=== PATIENT | female | born 1990 | race Caucasian/White ===

== ENCOUNTER → 2024-10-27 | Outpatient (CLI) | payer OTHER, SELFPAY ==
--- NOTE | 2024-10-27 08:25 | NEURO_ITS ---
NCS and/or EMG Patient Report Ordering Doctor: Kenny Washburn DATE OF SERVICE: 10/27/24 Clinical Summary: 34 year old female patient with symptoms of numbness in both hands and wrist pain. This EMG/NCS was performed to evaluate for bilateral carpal tunnel syndrome. Nerve Conduction Studies Summary: The median-D2 SNAP distal latency was prolonged bilaterally with reduced amplitude on the right side. The median-APB CMAP distal latency was prolonged bilaterally with reduced amplitude on the right side. The right median motor conduction velocity was reduced in the forearm segment. Needle Examination Summary: Needle examination of select muscles of the bilateral upper extremities demonstrated a higher proportion of motor unit action potentials with reduced recruitment, increased amplitude, increased duration, and polyphasia in the bi lateral abductor pollicis brevis muscles and the right flexor carpi radialis muscle. Impression: This is an abnormal study. 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 Clinical correlation is advised. Multi Select Codes Neurology Neurology Interp Codes: 34220-35 Musc test done w/n test comp (interp) (2) and 20195-69 Nrv cndj test 9-10 studies (interp)
== END | disposition home or self-care (01) ==
LOC: PSN 07:01
PROVIDERS: PCP Internal Medicine; Referring Provider Student in an Organized Health Care Education/Training Program; Visit Provider Student in an Organized Health Care Education/Training Program
DX: G56.03 Carpal tunnel syndrome, bilateral upper limbs (principal); R20.2 Paresthesia of skin
CPT/HCPCS: 95886; 95911

== ENCOUNTER → 2025-02-04 | Outpatient (CLI) | payer OTHER, SELFPAY ==
--- NOTE | 2025-02-04 13:36 | RAD_ITS ---
PROCEDURE: CERV SPINE OBL/FLEX/EXT COMP 02/04/2025 REASON FOR EXAM: RADICULOPATHY TECHNIQUE: 7 views of the cervical spine. AP with repeat, bilateral oblique, lateral, flexion-extension and open-mouth odontoid, 8 total images COMPARISON: None available FINDINGS: Cervical spine is visualized on the lateral view from the skull base to the top of T1. Straightening may represent positioning or spasm. No prevertebral soft tissue swelling. No fracture or malalignment. The disc spaces appear within limits. No significant appearing osseous foraminal narrowing identified. The visualized apices appear clear. No evidence of instability. RAD/Cerv Spine Obl/Flex/Ext Comp IMPRESSION: Straightening may represent positioning or spasm. Reading Location: [id number]
== END | disposition home or self-care (01) ==
LOC: RAD 13:30
PROVIDERS: PCP Internal Medicine; Referring Provider Student in an Organized Health Care Education/Training Program; Visit Provider Student in an Organized Health Care Education/Training Program
DX: M54.12 Radiculopathy, cervical region (principal)
CPT/HCPCS: 72052

== ENCOUNTER 2025-03-25 05:56 | Day surgery (SDC) | payer OTHER, SELFPAY ==
[2025-03-18 15:40] LABS: Absolute Lymphocyte Count 2.72 X10^3/uL (0.83-4.51); Absolute Neutrophil Count 5.5 X10^3/uL (2.0-7.7); Basophil# 0.07 X10^3/uL; Basophil% 0.8 % (0-1); Eosinophil# 0.13 X10^3/uL; Eosinophils% 1.5 % (0-5); Hematocrit 41.6 % (37-47); Hemoglobin 14.2 g/dL (12.0-15.0); Lymphocyte # 2.72 X10^3/ul (0.83-4.51); Lymphocyte % 30.5 % (19-41); Mean Corp Hgb Conc 34.1 g/dL (32-36); Mean Corpuscular Hgb 28.2 pg (27.0-32.0); Mean Corpuscular Volume 82.7 fL (81-99); Mean Platelet Vol. 9.1 fl (6.2-12.0); Monocyte# 0.51 X10^3/uL; Monocyte% 5.7 % (0-10); NRBC Flagged by Analyzer 0 % (0-5); Neutrophil # 5.46 X10^3/uL (2.7-7.7); Neutrophil % 61.2 % (47-70); Platelet Count 315 K/mm3 (150-450); RBC Distribution Width CV 12.2 % (11.6-14.6); RBC Distribution Width SD 36.6 fl (35.1-43.9); Red Blood Count 5.03 M/mm3 (4.2-5.4); White Blood Count 8.9 K/mm3 (4.4-11.0)
[2025-03-18 16:31] LABS: Anion Gap 14 (5-15); BUN 10 mg/dL (4-19); BUN/Creat Ratio 10.7 RATIO (10-20); Calcium,Total 9.7 mg/dL (7.6-11.0); Carbon Dioxide 24.9 mmol/L (21.0-32.0); Chloride 103 mmol/L (98-108); Creatinine, Serum 0.92 mg/dL (0.70-1.20); EST Glomerular Filtration Rate 84 (>60); Glucose 89 mg/dL (70-99); Potassium 4.1 mmol/L (3.3-5.1); Sodium Level 141 mmol/L (133-145)
[2025-03-25] VITALS (9 sets, daily range): BP systolic 104–132; BP diastolic 66–87; PULSE 94–112; RESP 16–20; TEMP 36.4–36.8; O2SAT 90–98; BMI 31.1
--- OUTSIDE RECORDS SUMMARY | 2025-03-25 05:58 | XMS RPT_ITS | CCD ---
Author Organization [facility] Care Team Providers Care Photographic Lithographer Name Role Phone Unavailable Primary Care Provider UnavailKAIDEN Jaquez Attending Unava ilable Unavailable Primary Care Provider UnavailNAVIN Cedeno Attending Unavailable NAVIN ZAMUDIO Admitting Unavailable Unavailable Primary Care Provider UnavailDENVER Franks Attending Unavailable Wu BERG, Dr. Cox Attending Provider Dr. Kenny Washburn DO Referring Provider Delbert VALENTINE, Dr. Marquez Primary Care Provider Dr. Kenny Washburn DO Other Provider Manuel VALENTINE, Dr. Rey Attending Provider Delbert VALENTINE, Dr. Marquez Attending Provider Dr. Jimmy Mandujano MD Referring Provider Assessment, Health Risk Attending Provider Unava ilable Assessment, Health Risk Referring Provider Unava ilable Oleghe, Efewongbe Primary Care Unavailable Assessment, Health Risk Attending Unavaila ble Assessment, Health Risk Referring Unavaila ble Maikolghe, Efewongbe Attending Unavailable Oleghe, Efewongbe Referring Unavailable Oleghe, Efewongbe Primary Care Unavailable Oleghe, Efewongbe Primary Care Unavailable Krissy Jackson Attending Unavailable Kenny Washburn Referring Unavailable Kenny Washburn Consulting Unavailable Oleghe, Efewongbe Primary Care Unavailable Kenny Washburn Attending Unavailable Kenny Washburn Referring Unavailable Oleghe, Efewongbe Primary Care Unavailable Kenny Washburn Attending Unavailable Kenny Washburn Referring Unavailable Kenny Washburn Attending Unavailable Kenny Washburn Referring Unavailable Jimmy Mandujano Primary Care Unavailable Medications Current Medications Medication Drug Class(es) Dates Sig (Normalized) Sig (Original) amoxicillin 875 mg / clavulanate 125 mg oral tablet (3 sources) Penicillin-class Antibacterial Start: 12-16-2023 End: 12-26-2023 take 1 tablet by mouth every twelve hours amoxicillin-clavul anate potassium (AUGMENTIN) 875-125 mg per tablet Indications: Acute non-recurrent pansinusitis Take 1 tablet by mouth every 12 hours for 10 days. 20 tablet 0 12/16/2023 12/26/2023 Active Start: 03-05-2022 End: 03-12-2022 take 1 tablet by mouth twice daily amoxicillin-clavulanic acid (AUGMENTIN) 875-125 mg per tablet Take 1 tablet by mouth twice daily for 7 days. 14 tablet 0 03/05/2022 03/12/2022 Active Start: 12-25-2021 End: 12-30-2021 take 1 tablet by mouth twice daily amoxicillin-clavulanic acid (AUGMENTIN) 875-125 mg per tablet Indications: Acute rhinosinusitis Take 1 tablet by mouth twice daily for 5 days. 10 tablet 0 12/25/2021 12/30/2021 Active Comment on above: Take 1 tablet by rick th twice daily for 5 days. Take 1 tablet by rick th twice daily for 7 days. Take 1 tablet by rick th every 12 hours for 10 days. 24 hr buPROPion hydrochloride 300 mg extended release oral tablet (2 sources) Aminoketone Start: 5 End: 5 take 1 tablet by mouth once daily in the morning Bupropion Hcl 300 mg tablet extended release 24 hr Active 300 mg PO EVERY MORNING December 23, 2024 9:59am docusate sodium 100 mg oral capsule (1 source) Start: 3 End: 3 take 2 capsules by mouth once daily at bedtime docusate sodium (COLACE) 100 mg capsule Take 2 capsules by mouth daily at bedtime. 60 capsule 0 11/23/2022 12/23/2022 Active Comment on above: Take 2 capsules by m outh daily at bedtime. Norethindrone-E.Estrad iol-Iron (19 sources) Estrogen Start: Norethindrone-E.E stradiol-Iron (Susan 24 Fe) 1 mg-20 mcg(24) /75 mg (4) tablet,chewable Active 1 {tbl} PO daily December 23, 2024 12:00am Start: 07-06-2024 take 1 tablet by rick once daily norethindrone-e.estradiol-iron (MIBELAS 24 FE) 1 mg-20 mcg(24) /75 mg (4) Take 1 tablet by mouth once daily. 84 tablet 3 07/06/2024 Active Start: 03-27-2024 End: 07-06-2024 take 1 tablet by mouth once daily norethindrone-e.estradiol-iron (MIBELAS 24 FE) 1 mg-20 mcg(24) /75 mg (4) Take 1 tablet by mouth once daily. 84 tablet 3 03/27/2024 07/06/2024 Discontinued Start: 03-27-2024 take 1 tablet by rick once daily norethindrone-e.estradiol-iron (MIBELAS 24 FE) 1 mg-20 mcg(24) /75 mg (4) Take 1 tablet by mouth once daily. 84 tablet 3 03/27/2024 Active Start: 01-28-2024 End: 03-27-2024 take 1 tablet by mouth once daily norethindrone-e.estradiol-iron (MIBELAS 24 FE) 1 mg-20 mcg(24) /75 mg (4) Take 1 tablet by mouth once daily. 84 tablet 0 01/28/2024 03/27/2024 Discontinued Start: 01-28-2024 take 1 tablet by rick once daily norethindrone-e.estradiol-iron (MIBELAS 24 FE) 1 mg-20 mcg(24) /75 mg (4) Take 1 tablet by mouth once daily. 84 tablet 0 01/28/2024 Active Start: 12-08-2023 End: 01-28-2024 take 1 tablet by mouth once daily MIBELAS 24 FE 1 mg-20 mcg(24) /75 mg (4) take 1 tablet by mouth once daily. 84 tablet 0 12/08/2023 01/28/2024 Discontinued Start: 12-08-2023 take 1 tablet by rick th once daily MIBELAS 24 FE 1 mg-20 mcg(24) /75 mg (4) take 1 tablet by mouth once daily. 84 tablet 0 12/08/2023 Active Start: 01-17-2023 End: 12-08-2023 take 1 tablet by mouth once daily norethindrone-e.estradiol-iron (MINASTRI N 24 FE) 1 mg-20 mcg(24) /75 mg (4) Take 1 tablet by mouth once daily. 84 tablet 3 01/17/2023 12/08/2023 Discontinued Start: 01-17-2023 take 1 tablet by rick th once daily norethindrone-e.estradiol-iron (MINASTRI N 24 FE) 1 mg-20 mcg(24) /75 mg (4) Take 1 tablet by mouth once daily. 84 tablet 3 01/17/2023 Active Start: 09-01-2021 End: 04-19-2022 take 1 tablet by mouth once daily norethindrone-e.estradiol-iron (MINASTRI N 24 FE) 1 mg-20 mcg(24) /75 mg (4) Take 1 tablet by mouth once daily. 84 tablet 3 09/01/2021 04/19/2022 Discontinued Start: 09-01-2021 take 1 tablet by rick th once daily norethindrone-e.estradiol-iron (MINASTRI N 24 FE) 1 mg-20 mcg(24) /75 mg (4) Take 1 tablet by mouth once daily. 84 tablet 3 09/01/2021 Active Comment on above: Take 1 tablet by rick th once daily. sertraline 100 mg oral tablet (11 sources) Serotonin Reuptake Inhibitor Start: 12-23-2024 End: 12-23-2024 take 1 tablet by mouth once daily Sertraline 100 mg tablet Active 100 mg PO daily December 23, 2024 9:59am Start: 04-18-2023 End: 03-27-2024 take 1 tablet by mouth once daily sertraline (ZOLOFT) 50 mg tablet Take 1 tablet by mouth once daily. 90 tablet 3 03/27/2024 Active Start: 03-15-2023 End: 04-14-2023 take 1 tablet by mouth once daily sertraline (ZOLOFT) 50 mg tablet Take 1 tablet by mouth once daily. 30 tablet 0 03/15/2023 04/14/2023 Active Comment on above: Take 1 tablet by rick once daily. Completed/Discontinued Medications Medication Drug Class(es) Dates Sig (Normalized) Sig (Original) acetaminophen 500 mg oral tablet (2 sources) Start: 11-23-2022 End: 01-17-2023 take 2 tablets by mouth every six hours as needed acetaminophen (TYLENOL EXTRA STRENGTH) 500 mg tablet Take 2 tablets by mouth every 6 hours as needed for pain. 30 tablet 0 11/23/2022 01/17/2023 Discontinued Comment on above: Take 2 tablets by mo [facility] every 6 hours as needed for pain. Breast Pump (5 sources) Start: 11-08-2022 End: 01-17-2023 Breast Pump Use as directed 1 Each 0 11/08/2022 01/17/2023 Discontinued Start: 11-08-2022 End: 11-08-2023 Breast Pump Use as directed 1 Each 0 11/08/2022 11/08/2023 Active Comment on above: Use as directed famotidine 20 mg oral tablet (10 sources) Histamine-2 Receptor Antagonist Start: End: take 1 tablet by mouth twice daily famotidine (PEPCID) 20 mg tablet Take 1 tablet by mouth twice daily. 60 tablet 1 11/16/2022 01/17/2023 Discontinued Start: 09-21-2022 End: 10-05-2022 take 1 tablet by mouth twice daily famotidine (PEPCID) 20 mg tablet Take 1 tablet by mouth twice daily for 14 days. 28 tablet 0 09/21/2022 10/05/2022 Active Comment on above: Take 1 tablet by rick twice daily for 14 days. Take 20 mg by mouth twice daily. Take 1 tablet by rikc twice daily. hydrocortisone acetate 25 mg rectal suppository (3 sources) Corticosteroid Start: 023 End: 023 hydrocortisone (ANUSOL-HC) 25 mg suppository 1 Suppository by RECTAL route twice daily. 10 Suppository 1 11/20/2022 01/17/2023 Discontinued Comment on above: 1 Suppository by REC JOSIAH route twice daily. ibuprofen 600 mg oral tablet (2 sources) Nonsteroidal Anti-inflammatory Drug Start: End: take 1 tablet by mouth every six hours as needed ibuprofen (MOTRIN) 600 mg tablet Take 1 tablet by mouth every 6 hours as needed for pain. 20 tablet 0 11/23/2022 01/17/2023 Discontinued Comment on above: Take 1 tablet by rick th every 6 hours as needed for pain. mv-mn/iron fum/FA/omega3,6,9#3 (WOMEN'S MULTI ORAL) (1 source) End: mv-mn/iron fum/FA/omega3,6,9#3 (WOMEN'S MULTI ORAL) Take by mouth. 0 12/25/2021 Discontinued (Course of therapy completed) Comment on above: Take by mouth. ondansetron 4 mg disintegrating oral tablet (1 source) Serotonin-3 Receptor Antagonist Start: End: take 1 tablet by mouth every six hours as needed ondansetron orally disintegrating (ZOFRAN ODT) 4 mg disintegrating tablet Take 1 tablet by mouth every 6 hours as needed for nausea/vomiting for up to 7 days. 30 tablet 0 09/21/2022 09/28/2022 Comment on above: Take 1 tablet by rick th every 6 hours as needed for nausea/vomiting for up to 7 days. vit no.124/iron/folic ( VITAMIN ORAL) (16 sources) End: vit no.124/iron/folic ( VITAMIN ORAL) Take by mouth. 0 01/17/2023 Discontinued vit no. 124/iron/folic ( VITAMIN ORAL) Take by mouth. 0 Active Comment on above: Take by mouth. Problems Active Problems Problem Classification Problem Date Documented Da te Episodic/Chronic Abdominal pain (1 source) Unspecified abdominal pain; Translations: [Abdominal pain during in third trimester] Onset: 09-21-2022 Episodic Administrative/social admission (3 sources) First encounter by subject; Translations: [Persons encountering health services in other specified circumstances] Onset: 12-23-2024 12-23-2024 Episodic Anxiety disorders (4 sources) Generalized anxiety disorder; Translations: [Generalized anxiety disorder] Onset: 12-23-2024 03-27-2024 Chronic Fluid and electrolyte disorders (1 source) Dehydration; Translations: [Dehydration] Onset: 09-21-2022 Episodic Immunizations and screening for infectious disease (1 source) Needs influenza immunization; Translations: [Encounter for immunization] Episodic Miscellaneous mental health disorders (1 source) depression; Translations: [ depression] Episodic Mood disorders (1 source) Mood disorders; Translations: [Depression, unspecified] Onset: 12-23-2024 Nausea and vomiting (1 source) Nausea with vomiting, unspecified; Translations: [Nausea vomiting and diarrhea] Onset: 09-21-2022 Episodic Other complications of (2 sources) ; Translations: [ with inconclusive viability, not applicable or unspecified] Episodic Other complications of (1 source) Other specified related conditions, third trimester; Translations: [Abdominal pain during in third trimester] Onset: 09-21-2022 Episodic Other complications of (1 source) Other specified related conditions, unspecified trimester; Translations: [Rh negative state in antepartum period] Onset: 11-23-2022 Episodic Other complications of (1 source) Anxiety; Translations: [Other mental disorders complicating the puerperium] Episodic Other gastrointestinal disorders (1 source) Diarrhea, unspecified; Translations: [Nausea vomiting and diarrhea] Onset: 09-21-2022 Episodic Other nervous system disorders (2 sources) Carpal tunnel syndrome, bilateral upper limbs; Translations: [Carpal tunnel syndrome, bilateral upper limbs] Onset: 12-21-2024 Chronic Other nervous system disorders (1 source) Paresthesia of skin; Translations: [Paresthesia of skin] Onset: 12-21-2024 Episodic Other upper respiratory infections (4 sources) Acute rhinosinusitis; Translations: [Acute sinusitis, unspecified] Episodic Residual codes; unclassified (1 source) Gestation period, 9 weeks; Translations: [9 weeks gestation of ] Episodic Residual codes; unclassified (1 source) Gestation period, 14 weeks; Translations: [14 weeks gestation of ] Episodic Residual codes; unclassified (1 source) Gestation period, 18 weeks; Translations: [18 weeks gestation of ] Episodic Residual codes; unclassified (1 source) Gestation period, 22 weeks; Translations: [22 weeks gestation of ] Episodic Residual codes; unclassified (1 source) Gestation period, 26 weeks; Translations: [26 weeks gestation of ] Episodic Residual codes; unclassified (1 source) Gestation period, 32 weeks; Translations: [32 weeks gestation of ] Episodic Residual codes; unclassified (1 source) Gestation period, 36 weeks; Translations: [36 weeks gestation of ] Episodic Residual codes; unclassified (1 source) Gestation period, 37 weeks; Translations: [37 weeks gestation of ] Episodic Residual codes; unclassified (1 source) Gestation period, 38 weeks; Translations: [38 weeks gestation of ] Episodic Residual codes; unclassified (1 source) Gestation period, 40 weeks; Translations: [40 weeks gestation of ] Episodic Residual codes; unclassified (1 source) Unspecified blood type, Rh negative; Translations: [Rh negative state in antepartum period] Onset: 11-23-2022 Episodic Spondylosis; intervertebral disc disorders; other back problems (1 source) Radiculopathy, cervical region; Translations: [Radiculopathy, cervical region] Onset: 02-09-2025 Episodic Unclassified (1 source) Z00.00 - Encounter for general adult medical examination without abnormal findings Past or Other Problems Problem Classification Problem Date Documented Date Episodic/Chronic OB-related trauma to perineum and vulva (5 sources) First degree perineal laceration; Translations: [First degree perineal laceration during delivery] Onset: 06-27-2020 Resolved: 08-16-2020 08-16-2020 Episodic Other complications of ; puerperium affecting management of mother (5 sources) Delivery finding; Translations: [Complication of labor and delivery, unspecified] Onset: 02-17-2017 Resolved: 04-11-2017 04-11-2017 Episodic Other complications of (20 sources) RhD negative; Translations: [Other specified related conditions, unspecified trimester] Onset: 10-09-2016 Resolved: 01-17-2023 Episodic Other complications of (10 sources) Previous operation to cervix affecting ; Translations: [Maternal care for other abnormalities of cervix, unspecified trimester] Onset: 08-14-2016 Resolved: 08-16-2020 04-11-2017 Episodic Other and delivery including normal (20 sources) care status; Translations: [Encounter for supervision of other normal , first trimester] Onset: 07-17-2016 Resolved: 01-17-2023 Episodic Other screening for suspected conditions (not mental disorders or infectious disease) (7 sources) Patient encounter status; Translations: [Encounter for screening for Streptococcus B] Onset: 05-12-2020 Resolved: 08-16-2020 Episodic Residual codes; unclassified (5 sources) At risk for difficulty; Translations: [Other specified personal risk factors, not elsewhere classified] Onset: 06-27-2020 Resolved: 08-16-2020 08-16-2020 Episodic NEGATED: Highlighted row has been ruled out!Unclassified (4 sources) No known active problems 03-05-2022 Results Test Name Value Interpretation Reference Range Facility Basic Metabolic Profile (BMP )on 03-18-2025 BUN/CRE 10.7 RATIO Normal - [facility] Comment on above: Performed By: #### L 100.0100, L500.2500 #### [facility] [address] [place], [address] Calcium [Mass/Vol] 9.7 mg/dL Normal 7.6-11.0 [facility] Comment on above: Performed By: #### L 100.0100, L500.2500 #### [facility] [address] [place], [address] Chloride [Moles/Vol] 103 mmol/L Normal 98-108 [facility] Comment on above: Performed By: #### L 100.0100, L500.2500 #### [facility] [address] [place], [address] CO2 [Moles/Vol] 24.9 mmol/L Normal 21.0-32.0 [facility] Comment on above: Performed By: #### L 100.0100, L500.2500 #### [facility] [address] [place], [address] Creatinine [Mass/Vol] 0.92 mg/dL Normal 0.70-1.20 [facility] Comment on above: Performed By: #### L 100.0100, L500.2500 #### [facility] [address] [place], [address] GAP 14 Normal 5-15 [facility] Comment on above: Performed By: #### L 100.0100, L500.2500 #### [facility] [address] [place], [address] GFR/1.73 sq M.predicted among non-blacks MDRD (S/P/Bld) [Vol rate/Area] 84 mL/min/{1.73_m2} Normal >60 [facility] Comment on above: Result Comment: mL/m in/1.73m2 CKD-EPI Creatinine Equation (2020) Performed By: #### L 100.0100, L500.2500 #### [facility] [address] [place], [address] Glucose [Mass/Vol] 89 mg/dL Normal 70-99 [facility] Comment on above: Performed By: #### L 100.0100, L500.2500 #### [facility] [address] [place], [address] Potassium [Moles/Vol] 4.1 mmol/L Normal 3.3-5.1 [facility] Comment on above: Performed By: #### L 100.0100, L500.2500 #### [facility] [address] [place], [address] Sodium [Moles/Vol] 141 mmol/L Normal 133-145 [facility] Comment on above: Performed By: #### L 100.0100, L500.2500 #### [facility] [address] [place], [address] Urea nitrogen [Mass/Vol] 10 mg/dL Normal 4-19 [facility] Comment on above: Performed By: #### L 100.0100, L500.2500 #### [facility] [address] [place], [address] CBC W/Diff, Automatedon 06- Absolute Lymph 2.72 X10 3/uL Normal 0.83-4.51 [facility] Comment on above: Performed By: #### L 100.0100, L500.2500 #### [facility] [address] [place], [address] Absolute Neut 5.5 X10 3/uL Normal 2.0-7.7 [facility] Comment on above: Performed By: #### L 100.0100, L500.2500 #### [facility] [address] [place], [address] Basophils/100 WBC (Bld) 0.8 % Normal 0-1 [facility] Comment on above: Performed By: #### L 100.0100, L500.2500 #### [facility] [address] [place], [address] Eosinophils/100 WBC (Bld) 1.5 % Normal 0-5 [facility] Comment on above: Performed By: #### L 100.0100, L500.2500 #### [facility] [address] [place], [address] Erythrocyte distribution width (RBC) [Ratio] 12.2 % Normal 11.6-14.6 [facility] Comment on above: Performed By: #### L 100.0100, L500.2500 #### [facility] [address] [place], [address] Hematocrit (Bld) [Volume fraction] 41.6 % Normal 37-47 [facility] Comment on above: Performed By: #### L 100.0100, L500.2500 #### [facility] [address] [place], [address] Hemoglobin (Bld) [Mass/Vol] 14.2 g/dL Normal 12.0-15.0 [facility] Comment on above: Performed By: #### L 100.0100, L500.2500 #### [facility] [address] [place], [address] IG% 0.300 Normal 0.0-0.9 [facility] Comment on above: Result Comment: IG% - Immature Granulocytes (promyelocytes, myelocytes and metamyelocytes) > 1% indicates that a LEFT SHIFT is Present. Performed By: #### L 100.0100, L500.2500 #### [facility] [address] [place], [address] Lymphocytes/100 WBC (Bld) 30.5 % Normal 19-41 [facility] Comment on above: Performed By: #### L 100.0100, L500.2500 #### [facility] [address] [place], [address] MCH (RBC) [Entitic mass] 28.2 pg Normal 27.0-32.0 [facility] Comment on above: Performed By: #### L 100.0100, L500.2500 #### [facility] [address] [place], [address] MCHC (RBC) [Mass/Vol] 34.1 g/dL Normal 32-36 [facility] Comment on above: Performed By: #### L 100.0100, L500.2500 #### [facility] [address] [place], [address] MCV (RBC) [Entitic vol] 82.7 fL Normal 81-99 [facility] Comment on above: Performed By: #### L 100.0100, L500.2500 #### [facility] [address] [place], [address] Monocytes/100 WBC (Bld) 5.7 % Normal 0-10 [facility] Comment on above: Performed By: #### L 100.0100, L500.2500 #### [facility] [address] [place], [address] Neutrophils/100 WBC (Bld) 61.2 % Normal 47-70 [facility] Comment on above: Performed By: #### L 100.0100, L500.2500 #### [facility] [address] [place], [address] Nucleated RBC (Bld) [#/Vol] 0 10*3/uL Normal 0-5 [facility] Comment on above: Performed By: #### L 100.0100, L500.2500 #### [facility] [address] [place], [address] Platelet mean volume (Bld) [Entitic vol] 9.1 fL Normal 6.2-12.0 [facility] Comment on above: Performed By: #### L 100.0100, L500.2500 #### [facility] [address] [place], [address] Platelets (Bld) [#/Vol] 315 10*3/uL Normal 150-450 [facility] Comment on above: Performed By: #### L 100.0100, L500.2500 #### [facility] [address] [place], [address] RBC (Bld) [#/Vol] 5.03 10*6/uL Normal 4.2-5.4 [facility] Comment on above: Performed By: #### L 100.0100, L500.2500 #### [facility] [address] [place], [address] RDW SD 36.6 fl Normal 35.1-43.9 [facility] Comment on above: Performed By: #### L 100.0100, L500.2500 #### [facility] [address] [place], [address] WBC (Bld) [#/Vol] 8.9 10*3/uL Normal 4.4-11.0 [facility] Comment on above: Performed By: #### L 100.0100, L500.2500 #### [facility] [address] [place], [place], [address] Cerv Spine Obl/Flex/Ext Comp on 02-04-2025 Cerv Spine Obl/Flex/Ext Comp [facility] [address] [place] [address] Cerv Spine Obl/Flex/Ext Comp MR#: [id number] Acct: [id number] Name: ANNE LAST Rep #: [id number] : 1990 F 34 From: Nuno Jara MD PCP: Dr. Jimmy Mandujano MD Status: REG CLI Study: Cerv Spine Obl/Flex/Ext Comp Date of Exam: 05/24 Exam# [id number] Ordering Dr: Kenyn Washburn DO PROCEDURE: CERV SPINE OBL/FLEX/EXT COMP 02/04/2025 REASON FOR EXAM: RADICULOPATHY TECHNIQUE: 7 views of the cervical spine. AP with repeat, bilateral oblique, lateral, flexion-extension and open-mouth odontoid, 8 total images COMPARISON: None available FINDINGS: Cervical spine is visualized on the lateral view from the skull base to the top of T1. Straightening may represent positioning or spasm. No prevertebral soft tissue swelling. No fracture or malalignment. The disc spaces appear within limits. No significant appearing osseous foraminal narrowing identified. The visualized apices appear clear. No evidence of instability. RAD/Cerv Spine Obl/Flex/Ext Comp IMPRESSION: Straightening may represent positioning or spasm. Reading Location: [facility] CC: Dr. Jimmy Mandujano MD; Dr. Kenny Washburn DO [employer] Assembler: Signed Normal [facility] Absolute lymphocyte countOrd ered By: HEALTH ASSESSMENT on 12-23-2024 Lymphocytes Auto (Unsp spec) [#/Vol] 2.00 10*3/uL 0.83-4.51 [facility] [facility] Absolute neutrophil countOrd ered By: HEALTH ASSESSMENT on 12-23-2024 Neutrophils (Bld) [#/Vol] 6.7 10*3/uL 2.0-7.7 [facility] Absolute nucleated red blood cell countOrdered By: HEALTH ASSESSMENT on 12-23-2024 Nucleated RBC (Bld) [#/Vol] 0.00 10*3/uL 0-5 [facility] Anion gap in Serum or Plasma Ordered By: HEALTH ASSESSMENT on 12-23-2024 Anion gap [Moles/Vol] 10 mmol/L 5-15 [facility] Automated blood erythrocyte countOrdered By: HEALTH ASSESSMENT on 12-23-2024 RBC (Bld) [#/Vol] 5.04 10*6/uL Normal 4.2-5.4 [facility] Comment on above: Performed By: #### L 500.2900, L100.0200 #### [facility] Laboratory [address] [place], [place], [id number] Automated blood hematocrit ( percentage)Ordered By: HEALTH ASSESSMENT on 12-23-2024 Hematocrit (Bld) [Volume fraction] 42.1 % Normal 37-47 [facility] Comment on above: Performed By: #### L 500.2900, L100.0200 #### [facility] [address] [facility] [place], [place], [address] BUN/creatinine ratioOrdered By: HEALTH ASSESSMENT on 12-23-2024 Urea nitrogen/Creatinine [Mass ratio] 12.7 mg/mg 10-20 [facility] Bilirubin directOrdered By: HEALTH ASSESSMENT on 12-23-2024 Bilirubin.direct [Mass/Vol] 0.12 mg/dL 0.00-0.30 [facility] Bilirubin, totalOrdered By: HEALTH ASSESSMENT on 12-23-2024 Bilirubin [Mass/Vol] 0.29 mg/dL 0.00-1.30 [facility] Blood band neutrophil count as percentage of total leukocytesOrdered By: HEALTH ASSESSMENT on 12-23-2024 Band form neutrophils/100 WBC (Bld) 71.6 % High 47-70 [facility] CBC, Employeeon 03-26-2025 Absolute Lymph 2.00 X10 3/uL Normal 0.83-4.51 [facility] Comment on above: Performed By: #### L 500.2900, L100.0200 #### [facility] Laboratory [address] [place], [address] Absolute Neut 6.7 X10 3/uL Normal 2.0-7.7 [facility] Comment on above: Performed By: #### L 500.2900, L100.0200 #### [facility] Laboratory [address] [place], [address] Basophils/100 WBC (Bld) 0.5 % Normal 0-1 [facility] Comment on above: Performed By: #### L 500.2900, L100.0200 #### [facility] [address] [place], [address] Eosinophils/100 WBC (Bld) 1.2 % Normal 0-5 [facility] Comment on above: Performed By: #### L 500.2900, L100.0200 #### [facility] [address] [place], [address] Lymphocytes/100 WBC (Bld) 21.3 % Normal 19-41 [facility] Comment on above: Performed By: #### L 500.2900, L100.0200 #### [facility] [address] [place], [address] Monocytes/100 WBC (Bld) 5.2 % Normal 0-10 [facility] Comment on above: Performed By: #### L 500.2900, L100.0200 #### [facility] [address] [place], [address] Neutrophils/100 WBC (Bld) 71.6 % High 47-70 [facility] Comment on above: Performed By: #### L 500.2900, L100.0200 #### [facility] [address] [place], [address] NRBC # 0.00 10 3/uL Normal 0-5 [facility] Comment on above: Performed By: #### L 500.2900, L100.0200 #### [facility] [address] [place], [address] Nucleated RBC (Bld) [#/Vol] 0 10*3/uL Normal 0-5 [facility] Comment on above: Performed By: #### L 500.2900, L100.0200 #### [facility] [address] [place], [address] RDW SD 36.3 fl Normal 35.1-43.9 [facility] Comment on above: Performed By: #### L 500.2900, L100.0200 #### [facility] [address] [place], [address] Calculated very low density lipoprotein (VLDL) cholesterol measurementOrdered By: HEALTH ASSESSMENT on 12-23-2024 Calculated very low density lipoprotein (VLDL) cholesterol measurement 29 mg/dL 5-40 [facility] Carbon dioxide, total [Moles /volume] in Central venous bloodOrdered By: HEALTH ASSESSMENT on 12-23-2024 CO2 [Moles/Vol] 25.9 mmol/L 21.0-32.0 [facility] Chloride assayOrdered By: HE ALTH ASSESSMENT on 12-23-2024 Chloride [Moles/Vol] 104 mmol/L 98-108 [facility] Erythrocyte distribution wid th ratioOrdered By: HEALTH ASSESSMENT on 12-23-2024 Erythrocyte distribution width (RBC) [Ratio] 12.0 % Normal 11.6-14.6 [facility] Comment on above: Performed By: #### L 500.2900, L100.0200 #### [facility] [address] [place], [address] Erythrocyte distribution wid th standard deviationOrdered By: HEALTH ASSESSMENT on 12-23-2024 Erythrocyte distribution width (RBC) [Ratio] 36.3 fl 35.1-43.9 [facility] Glomerular filtration rate ( GFR) estimation/1.73 sq m using serum, plasma, or whole bOrdered By: HEALTH ASSESSMENT on 12-23-2024 GFR/1.73 sq M.predicted among non-blacks MDRD (S/P/Bld) [Vol rate/Area] 101 mL/min/{1.73_m2} >60 [facility] Comment on above: mL/min/1.73m2 CKD-EP I Creatinine Equation (2020) Hemoglobin measurementOrdere d By: HEALTH ASSESSMENT on 12-23-2024 Hemoglobin (Bld) [Mass/Vol] 14.3 g/dL Normal 12.0-15.0 [facility] Comment on above: Performed By: #### L 500.2900, L100.0200 #### [facility] Laboratory [address] [place], [address] Internal Medicine Office Vis iton 12-23-2024 Internal Medicine Office Visit [facility] [address] [place] [address] [place] [address] OFFICE VISIT Date of Service: 12/23/24 MR#: [id number] Acct: [id number] Name: ANNE LAST Rep #: [id number] : 1990 Provider: Dr. Jimmy travis MD Age/Sex: 34/F Location[place] [facility] Status: Signed Intake Vital Signs 12/23/24 09:44 Height 5 ft 3.5 in Weight: 173 lb BMI 30.2 BP 112/74 Blood Pressure Location Lt brachial Position Sitting Respiration 16 Pulse 70 Pulse Source Monitor Temp 97.5 F L Temp Source Temporal Pulse Oximetry (%) 97 Oxygen Delivery Method room air Intake Visit Reasons: Booked from other vendor Chief Complaint: Establish care Heat Regulator Required: No Accompanied by: Self Is patient in pain?: No Allergies No Known Allergies Allergy (Verified 12/23/24 09:28) Medications ???Medication ???Instructions ???Recorded ???Confirmed ???Type bupropion HCl 300 mg 24 hr tablet, 300 mg PO QAM #90 tabs 12/23/24 12/23/24 Rx extended release norethindrone 1 mg-e. estradiol 20 1 tab PO QDAY 12/23/24 12/23/24 History mcg (24)-iron 75 mg (4) chew tablet (Susan 24 Fe) sertraline 100 mg tablet 100 mg PO QDAY #90 tabs 12/23/24 0 12/23/24 Rx [facility] Medical History (Updated 12/23/24 @ 10:[address] 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 No acute concerns at this time. 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 No significant medical history save for anxiety and depression for which she is currently on Wellbutrin and Zoloft. She states that she is doing well on both medications and has had no concerning side effects. Last Pap smear was in 2023. No family history of colon, breast or reproductive cancer. No tobacco or alcohol abuse. Does not routinely exercise. ROS Const Constitutional: No body ache, excessive sweating, fatigue, fever(s), frequent falls, headache(s), snoring, weakness, weight change, sleep problems or change in appetite Eyes Eyes: No blurry vision, change in vision, bulging eyes, floaters, visual disturbances, eye pain or Light sensitivity ENT ENT: No abnormal hearing, ear or mastoid pain, tinnitus, balance problems, nosebleed/epistaxis, nasal congestion, headache(s), neck pain or sore throat Resp Respiratory: No cough, excessive phlegm production, pain on inspiration, shortness of breath, snoring or wheezing Cardio Cardiology: No chest pain at rest, chest pain with exertion, excessive sweating, shortness of breath, dyspnea on exertion, lightheadedness, orthopnea or palpitations Gastro GI: No abdominal pain, change in bowel habits, constipation, cramping, diarrhea, nausea/dyspepsia or vomiting Genitourinary-Female: No burning urination, painful urination, urinary incontinence, urinary frequency, blood in urine, suprapubic fullness, side pain, abnormal periods or pelvic pain Musc Musculoskeletal: No abnormal gait, joint pain, back pain, limited range of motion, loss of height, muscle cramps, neck pain, numbness, stiffness, tingling or Arthritis Skin Skin: No dry skin, redness, excessive hair growth, yellowing of the eye, lesions, itchy eyes, rash or wounds Neuro Neurology: No abnormal gait, abnormal hearing, abnormal speech, behavioral changes, unsteady gait/balance, dizziness, weakness, frequent falls, headache(s), memory loss, numbness, tingling or visual disturbances Psych Psychiatric: No anxiety, No behavioral changes, No change in appetite, No depression, No memory loss and No Thoughts of harming yourself/Others Endo Endocrine: No cold intolerance, excessive sweating, fatigue, flushing, heat intolerance, increased thirst/drinking, inc (more content not included)... Normal [facility] Laboratory - Chemistry and C hemistry - challengeOrdered By: HEALTH ASSESSMENT on 12-23-2024 AST [Catalytic activity/Vol] 22 U/L <32 [facility] Lactate dehydrogenase (LDH) measurementOrdered By: HEALTH ASSESSMENT on 12-23-2024 LDH [Catalytic activity/Vol] 169 U/L 84-246 [facility] Low density lipoprotein (LDL ) cholesterol measurementOrdered By: HEALTH ASSESSMENT on 12-23-2024 Cholesterol in LDL [Mass/Vol] 113 mg/dL Normal 0-130 [facility] Comment on above: Performed By: #### L 500.2900, L100.0200 #### [facility] Laboratory [address] [place], [address] MCV (mean corpuscular volume ) determinationOrdered By: HEALTH ASSESSMENT on 12-23-2024 MCV (RBC) [Entitic vol] 83.5 fL Normal 81-99 [facility] Comment on above: Performed By: #### L 500.2900, L100.0200 #### [facility] [address] [place], [address] Mean corpuscular hemoglobin (MCH) determinationOrdered By: HEALTH ASSESSMENT on 12-23-2024 MCH (RBC) [Entitic mass] 28.4 pg Normal 27.0-32.0 [facility] Comment on above: Performed By: #### L 500.2900, L100.0200 #### [facility] [address] [place], [address] Mean corpuscular hemoglobin concentration (MCHC) determinationOrdered By: HEALTH ASSESSMENT on 12-23-2024 MCHC (RBC) [Mass/Vol] 34.0 g/dL Normal 32-36 [facility] Comment on above: Performed By: #### L 500.2900, L100.0200 #### [facility] [address] [place], [address] Mean platelet volume determi nationOrdered By: HEALTH ASSESSMENT on 12-23-2024 Platelet mean volume (Bld) [Entitic vol] 8.9 fL Normal 6.2-12.0 [facility] Comment on above: Performed By: #### L 500.2900, L100.0200 #### [facility] [address] [place], [address] Nucleated red blood cell per centageOrdered By: HEALTH ASSESSMENT on 12-23-2024 Nucleated RBC/100 WBC (Bld) [Ratio] 0 % 0-5 [facility] Platelet countOrdered By: HE ALTH ASSESSMENT on 12-23-2024 Platelets (Bld) [#/Vol] 305 10*3/uL Normal 150-450 [facility] Comment on above: Performed By: #### L 500.1690, L100.0200 #### [facility] [address] [place], [address] Potassium measurement (mass/ volume)Ordered By: HEALTH ASSESSMENT on 12-23-2024 Potassium (Unsp spec) [Mass/Vol] 4.5 mmol/L 3.3-5.1 [facility] Screening total cholesterol/ high density lipoprotein (HDL) cholesterol ratioOrdered By: HEALTH ASSESSMENT on 12-23-2024 Cholesterol.total/Choles terol in HDL [Mass ratio] 4.00 {ratio} [facility] Serum creatinine measurement (mass/volume)Ordered By: HEALTH ASSESSMENT on 12-23-2024 Creatinine [Mass/Vol] 0.78 mg/dL 0.70-1.20 [facility] Serum globulin measurementOr dered By: HEALTH ASSESSMENT on 12-23-2024 Globulin (S) [Mass/Vol] 3.1 g/dL 2.2-4.2 [facility] Serum glucose measurement (m ass/volume)Ordered By: HEALTH ASSESSMENT on 12-23-2024 Glucose [Mass/Vol] 79 mg/dL 70-99 [facility] Serum or plasma alanine steen otransferase (ALT) measurementOrdered By: HEALTH ASSESSMENT on 12-23-2024 ALT [Catalytic activity/Vol] 12 U/L <35 [facility] Serum or plasma albumin filomena urement (mass/volume)Ordered By: HEALTH ASSESSMENT on 12-23-2024 Albumin [Mass/Vol] 4.5 g/dL 3.5-5.0 [facility] Serum or plasma albumin/glob ulin mass ratioOrdered By: HEALTH ASSESSMENT on 12-23-2024 Albumin/Globulin [Mass ratio] 1.4 {ratio} 0.9-2.4 [facility] Serum or plasma alkaline axel sphatase measurementOrdered By: HEALTH ASSESSMENT on 12-23-2024 ALP [Catalytic activity/Vol] 56 U/L 35-104 [facility] Serum or plasma calcium filomena urement (mass/volume)Ordered By: HEALTH ASSESSMENT on 12-23-2024 Calcium [Mass/Vol] 9.9 mg/dL 7.6-11.0 [facility] Serum or plasma cholesterol in HDL measurement (mass/volume)Ordered By: HEALTH ASSESSMENT on 12-23-2024 Cholesterol in HDL [Mass/Vol] 47 mg/dL >40 [facility] Comment on above: National Cholesterol Education Program (NCEP) guidelines:<40 mg/dL: Low HDL-cholesterol (major risk factor for CHD)>= 60 mg/dL: High HDL-cholesterol (negative risk factor for CHD)HDL-cholesterol is affected by a number of factors, e.g. smoking, exercise, hormones, sex and age. Serum or plasma cholesterol measurement (mass/volume)Ordered By: HEALTH ASSESSMENT on 12-23-2024 Cholesterol [Mass/Vol] 189 mg/dL <201 [facility] Comment on above: Cholesterol level, D esirable <200 mg/dLBorderline high cholesterol 200-239 mg/dLHigh cholesterol >=240 mg/dLRecommendations of the NCEP Adult Treatment Panel for the following risk-cutoff thresholds for the [place] population. Serum or plasma urea nitroge n measurement (mass/volume)Ordered By: HEALTH ASSESSMENT on 12-23-2024 Urea nitrogen [Mass/Vol] 10 mg/dL 4-19 [facility] Serum or plasma uric acid me asurement (mass/volume)Ordered By: [facility] ASSESSMENT on 12-23-2024 Urate [Mass/Vol] 5.0 mg/dL 2.6-6.0 [facility] Comment on above: The drugs N-Acetylcy steine and Metamizole may falsely depress this assay. Sodium levelOrdered By: [facility] ASSESSMENT on 12-23-2024 Sodium [Moles/Vol] 140 mmol/L 133-145 [facility] Total proteinOrdered By: [facility] ASSESSMENT on 12-23-2024 Protein [Mass/Vol] 7.6 g/dL 5.9-8.4 [facility] Triglycerides measurementOrd ered By: HEALTH ASSESSMENT on 12-23-2024 Triglyceride [Mass/Vol] 146 mg/dL <199 [facility] Comment on above: The drugs N-Acetylcy steine and Metamizole may falsely depress this assay. Normal range: <150 mg/dLBorderline High: 150-199 mg/dLHigh: 200-499 mg/dLVery High: >500 mg/dL White blood cell (WBC) count Ordered By: HEALTH ASSESSMENT on 12-23-2024 WBC (Bld) [#/Vol] 9.4 10*3/uL Normal 4.4-11.0 [facility] Comment on above: Performed By: #### L 500.2900, L100.0200 #### [facility] Laboratory [address] [place], [address] NCS and/or EMG Patienton NCS and/or EMG Patient [facility] Pulmonary Services/Neurology [address] [place] [address] MR#: [id number] Acct: [id number] Name: ANNE LAST Rep #: [id number] : 1990 34 From: Krissy Jackson MD Referring Dr: Kenny Washburn DO Status: REG C LI Location: [facility] Date: 10/27/24 Sex: F C NCS and/or EMG Patient Report Ordering Doctor: Kenny Washburn DATE OF SERVICE: 10/27/24 Clinical Summary: 34 year old female patient with symptoms of numbness in both hands and wrist pain. This EMG/NCS was performed to evaluate for bilateral carpal tunnel syndrome. Nerve Conduction Studies Summary: The median-D2 SNAP distal latency was prolonged bilaterally with reduced amplitude on the right side. The median-APB CMAP distal latency was prolonged bilaterally with reduced amplitude on the right side. The right median motor conduction velocity was reduced in the forearm segment. Needle Examination Summary: Needle examination of select muscles of the bilateral upper extremities demonstrated a higher proportion of motor unit action potentials with reduced recruitment, increased amplitude, increased duration, and polyphasia in the bilateral abductor pollicis brevis muscles and the right flexor carpi radialis muscle. Impression: This is an abnormal study. 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 Clinical correlation is advised. Multi Select Codes Neurology Neurology Interp Codes: 28833-30 Musc test done w/n test comp (interp) (2) and 40074-17 [facility] cnd test 9-10 studies (interp) 10/27/24 1348 Date Krissy Jackson MD CC: Dr. Krissy Jackson MD; Dr. Jimmy Mandujano MD; Dr. Kenny Washburn DO Date Dictated: 10/27/24824 Date Transcribed: 10/27/24824 Corncob Pipes Assembler: [facility] Office Visit (AVONGY ) ANNE LAST ([id number]) 1990 F Date Time Provider Department 03/27/24 10:00 AM DENVER CATALAN During your visit today, we recorded the following information about you: Blood pressure Weight Height Last Period 116/78 79 kg 1.6 m 02/08/22 Layne Dillard MA 03/27/2024 10:21 AM Signed Risk Control Manager offered: Patient declines. Denver Catalan MD 03/27/2024 10:44 AM Signed Anne Last is a 33 year old G4P 3 female who presents for an annual exam. Today, she has no complaints. She doesn't get a period on the pill which she likes. Denies pelvic pain or vulvovaginal issues. Has gained weight and doesn't feel good. Hasn't been exercising. Busy with kids and work. Has occ CAROLE but not to often. No other pelvic floor concerns. Taking zoloft which has really helped with anxiety. wants to get a vasectomy OB History T3 L3 SAB1 IAB0 Ectopic0 Multiple0 Live Births3 Comment: Pt. 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 84 tablet 3 sertraline (ZOLOFT) 50 mg tablet Take 1 tablet by mouth once daily. 90 tablet 3 No current facility-administered medications for this visit. ALLERGIES: ALLERGIES No Known Allergies ROS: GENERAL: Negative for: Fatigue NECK: Negative for: Pain CARDIOLOGY: negative chest pain and palpitations RESPIRATORY: Negative for: Shortness of breath GASTROINTESTINAL: negative nausea, vomiting, diarrhea, constipation MUSCULOSKELETAL: Negative for: Muscle or joint pain NEUROLOGIC: negative for headaches PSYCHIATRIC: anxiety SKIN: Negative for: Rash, Itching ENDOCRINE: negative GENITOURINARY: Negative for: abnormal bleeding, pelvic pain, vaginal itching, vaginal discharge; negative urinary complaints BREAST: negative PE: Body mass index is 30.85 kg/m?. GENERAL:Well developed, Well nourished, No acute distress NECK: supple, no lymphadenopathy, no thyromegaly ABD: flat, nontender, no guarding, no rebound tenderness, no HSM EXT:no C/C/E SKIN:Skin color, texture, turgor normal. No rashes or lesions BREASTS: soft, non-tender, symmetric, no dominant mass, normal nipple-areolar complex, no lymphadenopathy, and no nipple discharge PELVIC:Normal BUS, NEFG, normal vagina, and normal cervix, Normal uterus, normal ovaries bilaterally pap/HPV done Assessment/Plan: (Z01.419) Encounter for gynecological examination (general) (routine) without abnormal findings (primary encounter diagnosis) (Z12.4) Cervical cancer screening (F41.1) Generalized anxiety disorder Normal exam. Pap/hpv done Refills of ocps and zoloft until vasectomy cleared. Reviewed diet, exercise, SBE, skin cancer prevention. Encouraged to focus on time for herself for exercise/cardio/stren gth. Reviewed tobacco, alcohol, drug use. The patient was counseled about oral contraceptive pills, including their mechanism of action, efficacy, potential side effects, risks and benefits. No contraindications exist including family history of clotting disorder or early stroke or heart attack. Any new medications given to pt. have been explained as to directions, reasons for prescribing and side effects Followup in 1 year /prn Denver Catalan MD Referring Provider: SELF [200] Allergies As of Date: 03/27/2024 (No Known Allergies) Date Reviewed: 03/27/2024 Reviewed by: Layne Dillard MA - Fully Assessed Reason for Visit: Yearly Exam [187] Cmt: 07/2020 pap AND hpv NEG Primary Visit Diagnosis:Encounter for gynecological examination (general) (routine) without abnormal findings [Z01.419] Other Visit Diagnoses:Cervical cancer screening [Z12.4] Generalized anxiety disorder [F41.1] Order(s):PAP TEST [PGL4910] Order #: [id number]. #:[id number] norethindrone-e.estra diol-iron (MIBELAS 24 FE) 1 mg-20 mcg(24) /75 mg (4)Take 1 tablet by mouth once daily.Disp: 84 tabletRfl: 3 sertraline (ZOLOFT) 50 mg tabletTake 1 tablet by mouth once daily.Disp: 90 tabletRfl: 3 Prescriptions as of 03/27/2024 - norethindrone-e.estra diol-iron (MIBELAS 24 FE) 1 mg-20 mcg(24) /75 mg (4) Take 1 tablet by mouth once daily. - sertraline (ZOLOFT) 50 mg tablet Take 1 tablet by mout (more content not included)... Normal [facility] CNOVon 12-16-2023 CNOV Office Visit (EXPSTR ) ANNE LAST ([id number]) 1990 F Date Time Provider Department 12/16/23 11:20 AM CHRISTEL CHRIS EXPSTR During your visit today, we recorded the following information about you: Temperature Pulse Respiration Blood pressure 98.4 degrees 92/minute 16/minute 142/89 Last Period 02/12/22 Christel Chris, BUYER LIAISON.KAIAKO KURA TUARUA 12/16/2023 3:47 PM Signed This note was created using [place] Orders[employer]. Subjective Anne Last is a 33 year old female. CC: Sinus symptoms x 2 weeks HPI 33-year-old female presenting to the clinic with sinus symptoms for the last 2 weeks. Endorses nasal congestion, postnasal drainage, runny nose, sinus pressure and pain, sore throat, headaches. Has also developed a productive cough within the last few days. Has been taking Mucinex with temporary relief in symptoms. Endorses adequate fluid intake. muxinex Review of Systems Constitutional: Negative for chills, diaphoresis and fever. HENT: Positive for congestion, postnasal drip, rhinorrhea, sinus pressure, sinus pain and sore throat. Negative for ear discharge, ear pain, facial swelling, trouble swallowing and voice change. Eyes: Negative for discharge and redness. Respiratory: Positive for cough. Negative for shortness of breath and wheezing. Cardiovascular: Negative for chest pain. Gastrointestinal: Negative for abdominal pain, diarrhea, nausea and vomiting. Neurological: Positive for headaches. Objective BP 142/89 (BP Site: Left Arm, BP Position: Sitting, BP Cuff Size: Large Adult) Pulse 92 Temp 36.9 ?C (98.4 ?F) Resp 16 LMP 02/12/2022 SpO2 97% PAST MEDICAL HISTORY Diagnosis Date Abnormal Pap smear of cervix First degree perineal laceration during delivery 06/27/2020 H/O LEEP 2009 Rh incompatibility PAST SURGICAL HISTORY Procedure Laterality Date LEEP PROCEDURE (SHEAR SETTER DEPT)_*FL 2008 PAST SURGICAL HISTORY OF 1999 left wrist ALLERGIES Patient has no known allergies. MEDICATIONS MIBELAS 24 FE 1 mg-20 mcg(24) /75 mg (4) take 1 tablet by mouth once daily. sertraline (ZOLOFT) 50 mg tablet Take 1 tablet by mouth once daily. FAMILY HISTORY Problem Relation Age of Onset Diabetes Paternal Grandfather Social History Tobacco Use Smoking status: Never Smokeless tobacco: Never Vaping Use Vaping Use: Never used Substance Use Topics Alcohol use: Not Currently Comment: occ Drug use: No Physical Exam GENERAL: Seated in exam room in no acute distress. Appears well without diaphoresis. Nontoxic. VS AND triage notes reviewed. HEENT Head: Normal without deformity or trauma. Eyes: Bilateral lids grossly clear without erythema, crusting, lesions or swelling. Bilateral scerla and conjunctivae normal without injection or chemosis. Bilateral cornea grossly clear. PERRL. EOMI. EARS: Bilateral external ears appear normal. Hearing grossly intact. Bilateral EAC patent without drainage. Bilateral TMs intact, misha diaz, non-bulging. Nose: Audibly congested. No drainage. Face: Symmetric without swelling or lesions Mouth/Throat: MMM. No lesions or trismus. Maintains secretions. Posterior oropharynx is clear without swelling, erythema, exudate or lesions. Uvula midline. NECK: Supple without adenopathy or swelling. Trachea midline. CHEST: Speaks in complete sentences. No accessory muscle use, tripoding or retractions. Lungs are clear to auscultation throughout bilateral posterior lung chauhan. No rales, rhonchi, or wheezing. HEART: Regular rate and rhythm. No murmurs, rubs or gallops noted. PSYCH: Normal mood and affect. NEURO: Alert and oriented. Speech is clear. Answers questions appropriately. Cooperative for exam. Normal gait. Assessment and Plan 1. Acute non-recurrent pansinusitis - ICD9: 461.8, ICD10: J01.40 - AMOXICILLIN 875 MG-POTASSIUM CLAVULANATE 125 MG TABLET Patient instructions: Antibiotics sent to your pharmacy to treat for sinus infection. Take as directed for the full duration. Do not stop early even if symptoms are improving. Rest and push fluids. You may take bfou-ddz-amadeem antihistamine such as Claritin or Zyrtec as well as a nasal steroid such as fluticasone. Use as directed per package instructions. For additional relief: Sleep elevated Use bedside humidification May use kyud-oni-hlqgjzq saline nasal rinse, use with purified water. Follow-up with primary care in 3 to 5 days if no improvement. Go directly to the ER for any new or worsening symptoms including face or neck swelling, trouble breathing or swallowing, severe headaches or inability keep fluids down ROSENDO Knapp Stephanie C, APRN.JAMAL 12/16/2023 3:45 PM Signed Antibiotics sent to your pharmacy to treat for sinus infection. Take as directed for the full duration. Do not stop early even if symptoms are improving. Rest and push fluids. You may take (more content not included)... Normal [facility] ANES POSTPROC EVALon 023 ANES POSTPROC EVAL HNO ID: [id number] Author: Akash Agarwal MD Service: Critical Care Author Type: Anesthesiologist Type: Anesthesia Postprocedure Evaluation Filed: 11/23/2022 11:20 AM Note Text: POST ANESTHESIA EVALUATION NOTE : 1990 Procedure Summary Date: 11/21/22 Room / Location: Anesthesia Start: 2226 Anesthesia Stop: 11/22/22213 Procedure: LABOR ANALGESIA Diagnosis: Scheduled Providers: Responsible Provider: Anat Joseph MD Anesthesia Type: epidural ASA Status: 2 Anesthesia Type: epidural Last Vitals Vitals Value Taken Time BP 96/68 11/23/22 0811 Temp 36.3 ?C (97.3 ?F) 11/23/22 0811 Pulse 103 11/23/22 0811 Resp 18 11/23/22 0811 SpO2 98% 11/23/22 1120 Jose Roberto Last [[id number]] Baby Delivery: 11/22/2022 0214 Post Anesthesia Patient Status Patient Evaluation: bedside. Anticipated Disposition: inpatient floor planned admission. Neurological Status: aware and responsive. Pulmonary Status: breathing comfortably on room air Airway Control: returned to baseline unsupported. Cardiovascular Status: stable. Pain Management: clinically adequate Postoperative Hydration: acceptable. Intraoperative Events: no significant anesthesia events Post Operative Nausea/Vomiting Status: no significant post operative nausea or vomiting Recommendation: continue current plan of care. Other Remarks: No evidence for PDPH Ambulating OK No new motor or sensory deficit. Anesthesia Observations No Documentation SIGNATURE: Akash Agarwal MD PATIENT NAME: Anne Last DATE: November 23, 2022 TIME: 11:20 AM CSN: [id number] [facility] ANES PRE-OPon 11-22-2022 ANES PRE-OP HNO ID: [id number] Author: Anat Joseph MD Service: Anesthesiology Author Type: Anesthesiologist Type: Anesthesia Preprocedure Evaluation Filed: 11/21/2022 10:24 PM Note Text: OB ANESTHESIA PRE-PROCEDURE ASSESSMENT PATIENT NAME: Anne Last : 1990 [facility] ANES ACCOUNTS RECEIVABLE REPRESENTATIVE: Previous OB anesthetic: Epidural No OB anesthesia considerations No prior risk factors reported No current obstetric problems/important considerations GERD: GERD well controlled with no positional symptoms 32 yo 40w2d labor Hx of syncope, last episode 05/21, cardiac workup as teen negative No problems with anesthesia Relevant Problems No relevant active problems I - PHYSICAL EVALUATION AIRWAY Patient intubated: No. Tracheostomy tube not present Mallampati: II. TM distance: >3 FB. Neck ROM: full ROM without neurological symptoms. Mouth opening: adequate. Short neck: no. Thick neck: no DENTAL Normal dental observations. Additional exam findings: yes. CARDIOVASCULAR Normal cardiovascular observations. PULMONARY Normal pulmonary observations. ABDOMINAL Normal abdominal observations. BACK Normal back observations. II - ANESTHESIA PLAN ASA Score: 2 Anesthetic Plan: epidural The patient is not a current smoker. NPO Status: inadequate (SOLIDS @ 1945) Beta Arlyn Monitoring Plan Monitoring plan: standard ASA. Post Procedure Analgesic Plan Postoperative analgesic plan: parenteral or oral opioids, multimodal analgesia and per surgical service. Informed Consent Anesthetic risks, benefits, alternatives, personnel and consent discussed: yes. Patient / Responsible Alliance Party agrees to proceed: yes Patient / Surrogate agrees to blood products: Yes Significant changes in the patient condition since the History and Physical, not otherwise documented in primary service progress note: no. Potential Anesthesia issues that may suggest increased risk of complications or contraindication to planned procedure: none. [facility] CHART REVIEW: ACTIVE PROBLEM LIST Care of Multigravida, Antepartum Rh Negative State in Antepartum Period Normal Labor PAST MEDICAL HISTORY Diagnosis Date - Abnormal Pap smear of cervix - First degree perineal laceration during delivery 06/27/2020 - H/O LEEP 2008 - Rh incompatibility PAST SURGICAL HISTORY Procedure Laterality Date - LEEP PROCEDURE (SHEAR SETTER DEPT)_*FL 2008 - PAST SURGICAL HISTORY OF 2000 left wrist FAMILY HISTORY Problem Relation Age of Onset - Diabetes Paternal Grandfather Social History Tobacco Use - Smoking status: Never - Smokeless tobacco: Never Vaping Use - Vaping Use: Never used Substance Use Topics - Alcohol use: Not Currently Comment: occ - Drug use: No hydrocortisone (ANUSOL-HC) 25 mg suppository, 1 Suppository by RECTAL route twice daily., Disp: 10 Suppository, Rfl: 1, 11/21/2022 at 1615 famotidine (PEPCID) 20 mg tablet, Take 1 tablet by mouth twice daily., Disp: 60 tablet, Rfl: 1, 11/21/2022 at 1615 Breast Pump, Use as directed, Disp: 1 Each, Rfl: 0 vit no.124/iron/folic ( VITAMIN ORAL), Take by mouth., Disp: , Rfl: , Unknown Inpatient medications reviewed in EPIC I have interviewed and examined the patient. I have reviewed the medical record and/or the pre-anesthesia evaluation, pertinent labs, and test results. This contains updated information obtained within 48 hours of Surgery/Procedure. SIGNATURE: STEVE Moore PATIENT NAME: Anne Last DATE: November 21, 2022 TIME: 10:18 PM : 1990 [facility] LD NOTEon 11-22-2022 LD NOTE HNO ID: [id number] Author: Olivia Mac MD Service: Obstetrics Author Type: Resident Type: LANDD Delivery Note Filed: 11/22/2022 2:32 AM Note Text: Attestation signed by Navin Zamudio MD at 11/22/2022 2:41 AM Attending Note I saw and evaluated the patient. I agree with resident's findings as documented in the resident's delivery note. I was present for entire delivery, w/o complication, and evaluated/assisted repair. Signature: Navin Zamudio MD Date: November 22, 2022 Time: 2:41 AM OBSTETRICS DELIVERY SUMMARY - VAGINAL DELIVERY Gestational Age at Delivery: 40w3d Service Date: 11/22/2022 Service Time: 2:31 AM Labor Events Rupture Date: 11/21/2022 Rupture Time: 11:59 PM Total Time from ROM to Delivery: 2h 15m Rupture Type: SROM Total Hours from ROM to Onset of Labor hours Fluid Color: Clear Fluid Odor: No Odor Induction: No Augmentation: AROM Reason for Augmentation: --- Jose Roberto Last [[id number]] Episiotomy/Laceration : Episiotomy: None Lacerations: 1st Perineal Repair Completed: Yes Sutures Used: 3-0 Polyglactin 910 Date and Time of : Date of : 11/22/22 Time of : 213 Delivery Information: Primary Reason for Delivery : Labor Delivery type: Vaginal, Spontaneous Intrapartum Complications: None Delivery between 24 - 34 weeks?: No Presentation: Vertex Shoulder Dystocia Present: No Vacuum Used: No Forceps Used: No Presentation AND Position Presentation: Vertex Position: IBETH Cord: Complications: None Delayed Cord Clampin-60 sec Placenta: Delivered: 11/22/2022 2:19 AM Removal: Spontaneous Appearance: Intact Anesthesia: Method: Epidural Measurements, Apgars: Tanner Burgess Called: Yes Type of Tanner Burgess Team Needed: Planned Resuscitation Needed: No I/O Blood Loss per time range on right. 11/21/22 1414 - 11/22/22 0231 Calculated Blood Loss (mL) Hospital Encounter 100 Total 100 cc Anne Last is a 32 year old 40w3d admitted for labor. She was augmented with AROM. Found to be fully dilated with strong urge to push. Pushed for 10 minutes to deliver a vigorous male . Head delivered in IBETH position, but restituted to TRISTIN. Anterior shoulder delivered with downward traction, followed by body. Nuchal was checked and none was noted. Infant's face was wiped clean and baby was placed on mother's abdomen. Cord was doubly clamped and cut after a 30 second delay. Placenta delivered spontaneously, intact with a 3 vessel cord. Vagina and perineum inspected. A shallow 1st degree laceration was repaired with single interrupted stitch of 3-0 Vicryl. A digital sweep of the vaginal canal was performed by the Resident and it was ascertained that no instruments or other foreign bodies are retained within the cavity. Sponge, lap, and needle counts were correct times two. Mother and baby are stable and bonding and skin to skin. Baby is in mother's arms. Expected post-delivery care and anticipated transfer reviewed. Plan of care discussed with: Provider, RN, Patient. SIGNATURE: Olivia Mac MD PATIENT NAME: Anne Last DATE: November 22, 2022 TIME: 2:31 AM Normal [facility] SARS-CoV-2 RNA Resp Ql PHI+p robeon 11-22-2022 SARS-CoV-2 (COVID-19) RNA PHI+probe Ql (Resp) COVID 19 RESULT: Not detected The method used is RT-PCR or an equivalent NAAT method. Reference Range(the expected result in uninfected individuals): Not detected Normal [facility] Comment on above: Performed By: #### 9 [id number] ####[facility] [id number] [address] BLOOD BANK COMMENTon 023 BLOOD BANK COMMENT See Comment Normal [facility] Comment on above: Order Comment: Speci men Type: BLOOD SPECIMENOrdering Facility: [facility] Address: [address] [place] [address] Result Comment: Anti -D found in current sample 11.21.2022. Last date RhIG was administered 08.28.2022. Negative antibody screen on 08.27.2022. Interpreted as Passive Anti-D. Performed By: #### T SPN, [id number] ####[facility] [id number] [address] CBC panel Auto (Bld)on 11-21 Erythrocyte distribution width (RBC) [Ratio] 13.8 % Normal 11.5-15.0 [facility] Comment on above: Order Comment: Speci men Type: BLOOD SPECIMEN Ordering Facility: [facility] Address: [facility] [place] [address] Performed By: #### 5 8410-2 #### [facility] CLIA [id number] [address] [place] [address] OF [facility] Hematocrit (Bld) [Volume fraction] 33.7 % Low 36.0-46.0 [facility] Comment on above: Order Comment: Speci men Type: BLOOD SPECIMEN Ordering Facility: [facility] Address: [address] [place] [address] Performed By: #### 5 8410-2 #### [facility] CLIA [id number] [address] [place] [address] [place] Hemoglobin (Bld) [Mass/Vol] 11.1 g/dL Low 11.5-15.5 [facility] Comment on above: Order Comment: Speci men Type: BLOOD SPECIMEN Order[facility]: [facility] Address: [address] [place] [address] Performed By: #### 5 8410-2 #### [facility] CLIA [id number] [address] [place] [address] MCH (RBC) [Entitic mass] 26.9 pg Normal 26.0-34.0 [facility] Comment on above: Order Comment: Speci men Type: BLOOD SPECIMEN Order[facility]: [facility] Address: [address] [place] [address] Performed By: #### 5 8410-2 #### [facility] CLIA [id number] [address] [place] [address] [place] MCHC (RBC) [Mass/Vol] 32.9 g/dL Normal 30.5-36.0 [facility] Comment on above: Order Comment: Speci men Type: BLOOD SPECIMEN [facility] Facility: [facility] Address: [address] [place] [address] Performed By: #### 5 8410-2 #### [facility] CLIA [id number] [address] [place] [address] [place] MCV (RBC) [Entitic vol] 81.6 fL Normal 80.0-100.0 [facility] Comment on above: Order Comment: Speci men Type: BLOOD SPECIMEN [facility] Address: [address] [place] [address] Performed By: #### 5 8410-2 #### [facility] CLIA [id number] [place] [address] [place] Nucleated RBC (Bld) [#/Vol] 10*3/uL Normal <0.01 [facility] Comment on above: Order Comment: Speci men Type: BLOOD SPECIMEN [facility] Address: [address] [place] [address] Performed By: #### 5 8410-2 #### [facility] CLIA [id number] [address] [place] [address] [place] Platelet mean volume (Bld) [Entitic vol] 9.6 fL Normal 9.0-12.7 [facility] Comment on above: Order Comment: Speci men Type: BLOOD SPECIMEN Order[facility] Address: [address] [place] [address] Performed By: #### 5 8410-2 #### [facility] CLIA [id number] [address] [place] [address] [place] Platelets (Bld) [#/Vol] 247 10*3/uL Normal 150-400 [facility] Comment on above: Order Comment: Speci men Type: BLOOD SPECIMEN [facility] Address: [address] [place] [address] Performed By: #### 5 8410-2 #### [facility] CLIA [id number] [address] [place] [address] [place] RBC (Bld) [#/Vol] 4.13 10*6/uL Normal 3.90-5.20 [facility] Comment on above: Order Comment: Speci men Type: BLOOD SPECIMEN [facility] Address: [address] [place] [address] Performed By: #### 5 8410-2 #### [facility] CLIA [id number] [address] [place] [id number] [facility] [place] WBC (Bld) [#/Vol] 14.47 10*3/uL High 3.70-11.00 [facility] Comment on above: Order Comment: Kaleb aguilera Type: BLOOD SPECIMEN [facility] Address: [facility] [place] [address] Performed By: #### 5 8410-2 #### [facility] CLIA [id number] [address] [place] [id number] [facility] HISTORY PHYSICALon HISTORY PHYSICAL HNO ID: [id number] Author: Olivia Mac MD Service: Obstetrics Author Type: Resident Type: HANDP Filed: 11/21/2022 9:37 PM Note Text: Attestation signed by Navin Zamudio MD at 11/22/2022 2:43 AM Attending Note I evaluated the patient and personally participated in the clark components. I agree with the resident's findings and plan as documented and have discussed the case and management of the patient's care with the resident. Plan of care discussed with: Provider, RN, Patient. Admit for Labor. Expectancy Signature: Navin Zamudio MD Date: November 22, 2022 Time: 2:43 AM SERVICE DATE: 11/21/2022 SERVICE TIME: 9:34 PM PHYSICAL EXAM MUST BE COMPLETED ON ADMISSION The History and Physical (completed in the past 30 days) has been reviewed and the patient has been examined. The contents accurately reflect the patient's condition with the following additions or revisions since the HANDP was completed. Anne Last is a 32 year old at 40w2d who presents in labor. Cx: 80/-2 Membranes: Intact Contractions: q3-4 FWB: Category I FHT GBS neg EFW: 8.5 lb by clinical assessment Presentation: cephalic OBH: x2 (proven to 8 lb 3 oz) POST DELIVERY CONTRACEPTION: Discussed post-delivery contraception options. Patient received written information about post-delivery contraception options. Patient does not desire post-delivery contraception. Examination indicates no changes. Current OB/Cervical examination indicates: Pelvimetry adequate Current OB plan: Admit to [facility] for expectant management . Plan of care discussed with: Provider, RN, Patient. This HANDP can be found in the Electronic Medical Record dated 11/20/22. SIGNATURE: Olivia Mac MD PATIENT NAME: Anne Last DATE: 11/21/2022 TIME: 9:34 PM PAGER: Normal [facility] TYPE + SCREEN PRENATALon ABO A Normal [facility] Comment on above: Order Comment: Speci men Type: BLOOD SPECIMENOrdering Facility: [facility] Address: [address] [place] [address] Performed By: #### T TAYLOR, [id number] ####[facility] [id number] [address] STATES OF [facility] HISTORICAL AB SCR STATUS Positive [facility] Comment on above: Order Comment: Speci men Type: BLOOD SPECIMENOrdering Facility: [facility] Address: [address] [place] [address] Result Comment: Sarah ected result: Previously reported as NEGATIVE on 11/22/2022 at 2:03 AM EST. Performed By: #### T WANDAN, [id number] ####[facility] [id number] [address] [place] Rh Nom (Bld) Negative [facility] Comment on above: Order Comment: Speci men Type: BLOOD SPECIMENOrdering Facility: [facility] Address: [address] [place] [address] Performed By: #### T SPN, [id number] ####[facility] [id number] [place] [id number] [place] TYPE AND SCREEN EXPIRATION 11/24/2022 23:59 Normal [facility] Comment on above: Order Comment: Speci men Type: BLOOD SPECIMENOrdering Facility: [facility] Address: [address] [place] [id number] Performed By: #### T SPN, [id number] ####[facility] [id number] [place] [id number] [place] URINE OB DIP B/Oon 3 Glucose Ql (U) Negative Neg mg/dL [facility] Protein.monoclonal (U) [Mass/Vol] Negative Neg mg/dL [facility] URINE OB DIP B/Oon 3 Glucose Ql (U) Negative Neg mg/dL [facility] Protein.monoclonal (U) [Mass/Vol] Negative Neg mg/dL [facility] URINE OB DIP B/Oon 3 Glucose Ql (U) Negative Neg mg/dL [facility] Protein.monoclonal (U) [Mass/Vol] Negative Neg mg/dL [facility] ED NOTEon 09-22-2022 ED NOTE HNO ID: [id number] Author: Savannah Grimes RN Service: Emergency Medicine Author Type: Registered Nurse Type: ED Notes Filed: 09/21/2022 11:28 PM Note Text: Patient ambulating in room, denies pain, nausea or any c/o at this time. States urinated in BR with good output. States feels comfortable going home, will call OB tomorrow, will return to ER for any concerns. Dc isntr provided, rx x2. Patient ambulates from ER Normal [facility] ED PROV NOTEon 09-22-2022 ED PROV NOTE HNO ID: [id number] Author: Kaiden Randhawa MD Service: Emergency Medicine Author Type: Physician Type: ED Provider Notes Filed: 09/21/2022 11:41 PM Note Text: ED Provider Note Patient Name: Anne Last : 1990 SERVICE DATE: 09/21/22 History Patient presents with: Abdominal Pain Patient presents to the emergency department, accompanied by her , for upper abdominal pain. Patient is 32 weeks gestation. Patient states pain began earlier this morning, feels like a stabbing sensation in the middle of her upper abdomen. Patient admits to couple episodes of emesis associate with nausea, and watery diarrhea. No sick contacts. Patient has no fevers, however she endorses chills and body aches. Patient has no vaginal bleeding, no contractions, no urinary complaints. She states feeling good movements. All care is up to date. Vomiting Severity: Mild Duration: 1 day Progression: Worsening Chronicity: New Relieved by: Nothing Worsened by: Nothing Associated symptoms: abdominal pain, chills, diarrhea and myalgias Associated symptoms: no cough and no fever Risk factors: Risk factors: no prior abdominal surgery and no sick contacts PAST MEDICAL HISTORY Diagnosis Date Abnormal Pap smear of cervix First degree perineal laceration during delivery 06/27/2020 H/O LEEP 2009 Rh incompatibility PAST SURGICAL HISTORY Procedure Laterality Date LEEP PROCEDURE (SHEAR SETTER DEPT)_*[place] 2008 PAST SURGICAL HISTORY OF 2000 left wrist FAMILY HISTORY Problem Relation Age of Onset Diabetes Paternal Grandfather Social History Tobacco Use Smoking status: Never Smokeless tobacco: Never Vaping Use Vaping Use: Never used Substance and Sexual Activity Alcohol use: Not Currently Comment: occ Drug use: No Sexual activity: Yes Partners: Male control/protection: None ALLERGIES No Known Allergies Review of Systems Constitutional: Positive for chills. Negative for fever. Respiratory: Negative for cough. Gastrointestinal: Positive for abdominal pain, diarrhea and vomiting. Genitourinary: Negative for difficulty urinating, dysuria, vaginal bleeding, vaginal discharge and vaginal pain. Musculoskeletal: Positive for myalgias. Negative for back pain. All other systems reviewed and are negative. Physical Exam Vitals [09/21/221947] BP Pulse Temp Temp src Resp SpO2 Weight Height 118/76 (!) 120 37 ?C (98.6 ?F) Temporal 24 99 % 77.2 kg (170 lb 3.1 oz) -- Physical Exam Vitals and nursing note reviewed. Constitutional: General: She is not in acute distress. Appearance: Normal appearance. She is not ill-appearing or toxic-appearing. HENT: Head: Normocephalic and atraumatic. Eyes: General: Right eye: No discharge. Left eye: No discharge. Cardiovascular: Rate and Rhythm: Regular rhythm. Tachycardia present. Heart sounds: No murmur heard. No friction rub. Pulmonary: Effort: No respiratory distress. Abdominal: General: Bowel sounds are normal. Palpations: Abdomen is soft. Tenderness: There is abdominal tenderness in the epigastric area. There is no right CVA tenderness, left CVA tenderness or guarding. Negative signs include psoas sign. Hernia: No hernia is present. Comments: Gravid abdomen, with fundus very high above the umbilicus, there is mild epigastric tenderness, without rebound guarding or peritoneal findings, there is no right upper quadrant tenderness, is no CVA tenderness, there is no lower abdominal tenderness Skin: General: Skin is warm and dry. Neurological: General: No focal deficit present. Mental Status: She is alert and oriented to person, place, and time. Mental status is at baseline. Psychiatric: Mood and Affect: Mood normal. Behavior: Behavior normal. Diagnostic Testing ED Labs Ordered and Reviewed COMP METABOLIC PANEL - Abnormal; Notable for the following components: Result Value Ref Range Creatinine 0.50 (*) 0.58 - 0.96 mg/dL Sodium 134 (*) 136 - 144 mmol/L Potassium 3.5 (*) 3.7 - 5.1 mmol/L CO2 19 (*) 22 - 30 mmol/L All other components within normal limits CBC + DIFF - Abnormal; Notable for the following components: WBC 13.83 (*) 3.70 - 11.00 k/uL MPV 8.8 (*) 9.0 - 12.7 fL Abs Neut 12.51 (*) 1.45 - 7.50 k/uL Abs Lymph 0.73 (*) 1.00 - 4.00 k/uL All other components within normal limits Narrative: This is an appended report. These results have been appended to a previously verified report. URINALYSIS WITH MICROSCOPIC, REFLEX CULTURE - Abnormal; Notable for the following components: Color Dark Yellow (*) Yellow Clarity Slightly Cloudy (*) Clear Bilirubin, Urine 1+ (*) Negative Ketones, Urine 4+ (*) Negative Protein, Urine Trace (*) Negative Bacteria Few (*) None Seen /HPF All other components within normal limits MAGNESIUM BLD - Normal LIPASE BLD - Normal EXPEDITED COVID, FLU A/B + RSV - Normal Procedures ED (more content not included)... Normal [facility] CBC W Auto Differential pane l (Bld)on 09-21-2022 Basophils (Bld) [#/Vol] 10*3/uL Normal <0.11 A [facility] Comment on above: Order Comment: Speci men Type: BLOOD SPECIMEN Ordering Facility: [facility] Address: [address] [place] [address] Performed By: #### 5 7021-8 #### [facility] CLIA [id number] [address] [place] [address] [place] Basophils/100 WBC (Bld) 0.1 % Normal A [facility] Comment on above: Order Comment: Speci men Type: BLOOD SPECIMEN Ordering Facility: [facility] Address: [address] [place] [address] Performed By: #### 5 7021-8 #### [facility] CLIA [id number] [address] [place] [address] [place] Differential cell count method Nom (Bld) Auto Normal [facility] Comment on above: Order Comment: Speci men Type: BLOOD SPECIMEN Ordering Facility: [facility] Address: [address] [place] [address] Performed By: #### 5 7021-8 #### [facility] CLIA [id number] [address] [place] [address] [place] Eosinophils (Bld) [#/Vol] 10*3/uL Normal <0.46 [facility] Comment on above: Order Comment: Speci men Type: BLOOD SPECIMEN Ordering Facility: [facility] Address: [address] [address] Performed By: #### 5 7021-8 #### [facility] CLIA [id number] [address] [place] Eosinophils/100 WBC (Bld) 0.1 % Normal [facility] Comment on above: Order Comment: Speci men Type: BLOOD SPECIMEN Ordering Facility: [facility] Address: [address] [place], [place] [id number] Performed By: #### 5 7021-8 #### [facility] CLIA [id number] [address] [place] [address] [place] Erythrocyte distribution width (RBC) [Ratio] 12.9 % Normal 11.5-15.0 [facility] Comment on above: Order Comment: Speci men Type: BLOOD SPECIMEN Ordering Facility: [facility] Address: [address] [place] [address] Performed By: #### 5 7021-8 #### [facility] CLIA [id number] [address] [place] [address] [place] Hematocrit (Bld) [Volume fraction] 37.8 % Normal 36.0-46.0 [facility] Comment on above: Order Comment: Speci men Type: BLOOD SPECIMEN Ordering Facility: [facility] Address: [address] [place] [address] Performed By: #### 5 7021-8 #### [facility] CLIA [id number] [address] [place] [address] [place] Hemoglobin (Bld) [Mass/Vol] 12.9 g/dL Normal 11.5-15.5 [facility] Comment on above: Order Comment: Speci men Type: BLOOD SPECIMEN Ordering Facility: [facility] Address: [address] [place] [address] Performed By: #### 5 7021-8 #### [facility] CLIA [id number] [address] [place] [address] [place] Immature granulocytes (Bld) [#/Vol] 0.04 10*3/uL Normal <0.10 [facility] Comment on above: Order Comment: Speci men Type: BLOOD SPECIMEN Ordering Facility: [facility] Address: [address] [place] [address] Performed By: #### 5 7021-8 #### [facility] CLIA [id number] [address] [place] [address] [place] Immature granulocytes/100 WBC (Bld) 0.3 % Normal [facility] Comment on above: Order Comment: Speci men Type: BLOOD SPECIMEN Ordering Facility: [facility] Address: [address] [place] [address] Performed By: #### 5 7021-8 #### [facility] CLIA [id number] [address] [place] [address] [place] Lymphocytes (Bld) [#/Vol] 0.73 10*3/uL Low 1.00-4.00 [facility] Comment on above: Order Comment: Speci men Type: BLOOD SPECIMEN Ordering Facility: [facility] Address: [address] [place] [address] Performed By: #### 5 7021-8 #### [facility] CLIA [id number] [address] [place] Lymphocytes/100 WBC (Bld) 5.3 % Normal [facility] Comment on above: Order Comment: Speci men Type: BLOOD SPECIMEN Ordering Facility: [facility] Address: [address] [place] [address] Performed By: #### 5 7021-8 #### [facility] CLIA [id number] [address] [place] [address] [place] MCH (RBC) [Entitic mass] 28.9 pg Normal 26.0-34.0 [facility] Comment on above: Order Comment: Speci men Type: BLOOD SPECIMEN Ordering Facility: [facility] Address: [address] [place] [address] Performed By: #### 5 7021-8 #### [facility] CLIA [id number] [address] [place] [address] [place] MCHC (RBC) [Mass/Vol] 34.1 g/dL Normal 30.5-36.0 [facility] Comment on above: Order Comment: Speci men Type: BLOOD SPECIMEN Ordering Facility: [facility] Address: [address] [place] [address] Performed By: #### 5 7021-8 #### [facility] CLIA [id number] [address] [place] [address] [place] MCV (RBC) [Entitic vol] 84.6 fL Normal 80.0-100.0 [facility] Comment on above: Order Comment: Speci men Type: BLOOD SPECIMEN Ordering Facility: [facility] Address: [address] [place] [address] Performed By: #### 5 7021-8 #### [facility] CLIA [id number] [address] [place] [address] [place] Monocytes (Bld) [#/Vol] 0.52 10*3/uL Normal <0.87 [facility] Comment on above: Order Comment: Speci men Type: BLOOD SPECIMEN Ordering Facility: [facility] Address: [address] [place] [address] Performed By: #### 5 7021-8 #### [facility] CLIA [id number] [address] [place] [address] Monocytes/100 WBC (Bld) 3.8 % Normal A [facility] Comment on above: Order Comment: Speci men Type: BLOOD SPECIMEN Ordering Facility: [facility] Address: [address] [place] [address] Performed By: #### 5 7021-8 #### [facility] CLIA [id number] [address] [place] Neutrophils (Bld) [#/Vol] 12.51 10*3/uL High 1.45-7.50 [facility] Comment on above: Order Comment: Speci men Type: BLOOD SPECIMEN Ordering Facility: [facility] Address: [address] [place] [address] Performed By: #### 5 7021-8 #### [facility] CLIA [id number] [address] [place], [place] [address] [place] [address] [place] Neutrophils/100 WBC (Bld) 90.4 % Normal [facility] Comment on above: Order Comment: Speci men Type: BLOOD SPECIMEN Ordering Facility: [facility] Address: [address] [address] Performed By: #### 5 7021-8 #### [facility] CLIA [id number] [address] [place] [address] [place] Nucleated RBC (Bld) [#/Vol] Normal [facility] Comment on above: Order Comment: Speci men Type: BLOOD SPECIMEN Ordering Facility: [facility] Address: [address] [address] Performed By: #### 5 7021-8 #### [facility] CLIA [id number] [address] [place] [address] [facility] [place] Nucleated RBC/100 WBC (Bld) [Ratio] Normal [facility] Comment on above: Order Comment: Speci men Type: BLOOD SPECIMEN Ordering Facility: [facility] Address: [address] [place] [address] Performed By: #### 5 7021-8 #### [facility] CLIA [id number] [address] [place] [address] [place] Platelet mean volume (Bld) [Entitic vol] 8.8 fL Low 9.0-12.7 [facility] Comment on above: Order Comment: Speci men Type: BLOOD SPECIMEN Ordering Facility: [facility] Address: [address] [place] [address] Performed By: #### 5 7021-8 #### [facility] CLIA [id number] [address] [place] [address] [place] Platelets (Bld) [#/Vol] 195 10*3/uL Normal 150-400 [facility] Comment on above: Order Comment: Speci men Type: BLOOD SPECIMEN Ordering Facility: [facility] Address: [address] [place] [address] Performed By: #### 5 7021-8 #### [facility] CLIA [id number] [address] [place] [address] [place] RBC (Bld) [#/Vol] 4.47 10*6/uL Normal 3.90-5.20 [facility] Comment on above: Order Comment: Speci men Type: BLOOD SPECIMEN Ordering Facility: [facility] Address: [address] [place] [address] Performed By: #### 5 7021-8 #### [facility] CLIA [id number] [address] [place] [address] [facility] WBC (Bld) [#/Vol] 13.83 10*3/uL High 3.70-11.00 [facility] Comment on above: Order Comment: Speci men Type: BLOOD SPECIMEN Ordering Facility: [facility] Address: [address] [place] [address] Performed By: #### 5 7021-8 #### [facility] CLIA [id number] [address] [place] [address] [facility] Comprehensive metabolic 2000 panelon 09-21-2022 Albumin [Mass/Vol] 3.9 g/dL Normal 3.9-4.9 [facility] Comment on above: Order Comment: Speci men Type: BLOOD SPECIMEN Ordering Facility: [facility] Address: [address] [place] [address] Performed By: #### 2 4323-8, 3, #### [facility] CLIA [id number] [address] [place] [address] [place] [facility] ALP [Catalytic activity/Vol] 108 U/L Normal 34-123 [facility] Comment on above: Order Comment: Speci men Type: BLOOD SPECIMEN Ordering Facility: [facility] Address: [address] [place] [address] Performed By: #### 2 4323-8, 3039-3, #### [facility] CLIA [id number] [address] [facility] [place] [address] [facility] ALT With P-5'-P [Catalytic activity/Vol] 10 U/L Normal 7-38 [facility] Comment on above: Order Comment: Speci men Type: BLOOD SPECIMEN Ordering Facility: [facility] Address: [address] [place] [address] Performed By: #### 2 4323-8, 3039-3, #### [facility] CLIA [id number] [address] [place] [place] [address] [place] Anion gap [Moles/Vol] 16 mmol/L Normal 9-18 [facility] Comment on above: Order Comment: Speci men Type: BLOOD SPECIMEN Ordering Facility: [facility] Address: [address] [place] [address] Performed By: #### 2 4323-8, 3, #### [facility] CLIA [id number] [address] [place] [address] [place] AST With P-5'-P [Catalytic activity/Vol] 24 U/L Normal 13-35 [facility] Comment on above: Order Comment: Speci men Type: BLOOD SPECIMEN Ordering Facility: [facility] Address: [address] [place] [address] Performed By: #### 2 4323-8, 3, #### [facility] CLIA [id number] [address] [place] [address] [place] Bilirubin [Mass/Vol] 0.5 mg/dL Normal 0.2-1.3 [facility] Comment on above: Order Comment: Speci men Type: BLOOD SPECIMEN Ordering Facility: [facility] Address: [address] [address] Performed By: #### 2 4323-8, 3, #### V[facility]LE [facility] CLIA [id number] [address] [place] [address] [place] Calcium [Mass/Vol] 9.2 mg/dL Normal 8.5-10.2 [facility] Comment on above: Order Comment: Speci men Type: BLOOD SPECIMEN Ordering Facility: [facility] Address: [address] [place] [address] Performed By: #### 2 4323-8, 3040-3, #### [facility] CLIA [id number] [address] [place] [address] [place] Chloride [Moles/Vol] 99 mmol/L Normal 97-105 [facility] Comment on above: Order Comment: Speci men Type: BLOOD SPECIMEN Ordering Facility: [facility] Address: [address] [place] [address] Performed By: #### 2 4323-8, 3040-3, #### [facility] CLIA [id number] [address] [place] [address] [place] CO2 [Moles/Vol] 19 mmol/L Low 22-30 [facility] Comment on above: Order Comment: Speci men Type: BLOOD SPECIMEN Ordering Facility: [facility] Address: [address] [place] [address] Performed By: #### 2 4323-8, 3040-3, #### [facility] CLIA [id number] [address] [place] [address] [place] Creatinine [Mass/Vol] 0.50 mg/dL Low 0.58-0.96 [facility] Comment on above: Order Comment: Speci men Type: BLOOD SPECIMEN Ordering Facility: [facility] Address: [address] [place] [address] Performed By: #### 2 4323-8, 03, #### [facility] CLIA [id number] [address] [place] [address] [facility] [place] ESTIMATED GLOMERULAR FILTRATION RATE 128 mL/min/1.73m??? Normal >=60 [facility] Comment on above: Order Comment: Speci men Type: BLOOD SPECIMEN Ordering Facility: [facility] Address: [address] [place] [address] Result Comment: Ellie mated Glomerular Filtration Rate (eGFR) is calculated using the 2020 CKD-EPI creatinine equation. This equation utilizes serum creatinine, sex, and age as parameters. The creatinine assay has traceable calibration to isotope dilution-mass spectrometry. Refer to KDIGO guidelines for clinical interpretation. In patients with unstable renal function, e.g. those with acute kidney injury, the eGFR may not accurately reflect actual GFR. Performed By: #### 2 4323-8, 3040-3, #### [facility] CLIA [id number] [address] [place] [address] [place] Glucose [Mass/Vol] 86 mg/dL Normal 74-99 [facility] Comment on above: Order Comment: Kaleb aguilera Type: BLOOD SPECIMEN Ordering Facility: [facility] Address: [address] [place] [id number] Result Comment: The [place] Diabetes Association (ADA) provides guidance for cutoff values for fasting glucose and random glucose. The ADA defines fasting as no caloric intake for at least 8 hours. Fasting plasma glucose results between 100 to 125 mg/dL indicate increased risk for diabetes (prediabetes). Fasting plasma glucose results greater than or equal to 126 mg/dL meet the criteria for diagnosis of diabetes. In the absence of unequivocal hyperglycemia, results should be confirmed by repeat testing. In a patient with classic symptoms of hyperglycemia or hyperglycemic crisis, random plasma glucose results greater than or equal to 200 mg/dL meet the criteria for diagnosis of diabetes. Reference: Standards of Medical Care in Diabetes 2016, [employer] Diabetes Association. Diabetes Care. 2016.39(Suppl 1). Performed By: #### 2 4323-8, 0-3, #### [facility] CLIA [id number] [address] [place] [address] [place] Potassium [Moles/Vol] 3.5 mmol/L Low 3.7-5.1 [facility] Comment on above: Order Comment: Kaleb aguilera Type: BLOOD SPECIMEN Ordering Facility: [facility] Address: [place] [address] Performed By: #### 2 4323-8, 0-3, #### [facility] CLIA [id number] [address] [place] [address] [place] Protein [Mass/Vol] 7.2 g/dL Normal 6.3-8.0 [facility] Comment on above: Order Comment: Speci men Type: BLOOD SPECIMEN Ordering Facility: [facility] Address: [address] [place] [address] Performed By: #### 2 4323-8, 3040-3, 99641-4 #### [facility] CLIA [id number] [address] [place] [address] [place] Sodium [Moles/Vol] 134 mmol/L Low 136-144 [facility] Comment on above: Order Comment: Speci men Type: BLOOD SPECIMEN Ordering Facility: [facility] Address: [address] [place] [address] Performed By: #### 2 4323-8, 3040-3, #### [facility] CLIA [id number] [address] [place] [address] [facility] Urea nitrogen [Mass/Vol] 7 mg/dL Normal 7-21 [facility] Comment on above: Order Comment: Speci men Type: BLOOD SPECIMEN Ordering Facility: [facility] Address: [address] [place] [address] Performed By: #### 2 4323-8, 3, #### [facility] CLIA [id number] [address] [place] [address] [facility] ED NOTEon 09-21-2022 ED NOTE HNO ID: [id number] Author: Savannah Grimes RN Service: Emergency Medicine Author Type: Registered Nurse Type: ED Notes Filed: 09/21/2022 9:24 PM Note Text: Patient reports feeling much better. Resting quietly on cart, relaxed facial expression, resps unlabored, skin wdp. Dr Randhawa at bedside to discuss results, dispo Normal [facility] ED NOTE HNO ID: [id number] Author: Fely Siegel RN Service: Emergency Medicine Author Type: Registered Nurse Type: ED Notes Filed: 09/21/2022 8:44 PM Note Text: FHT 168, active movement Normal [facility] ED NOTE HNO ID: [id number] Author: Savannah Grimes, CHARLES Service: Emergency Medicine Author Type: Registered Nurse Type: ED Notes Filed: 09/21/2022 7:52 PM Note Text: Patient states she is 32 weeks , c/o upper abd pain since 12 pm, progressively worsening. Normal [facility] Lipase SerPl-cCncon 09-21-20 22 Lipase [Catalytic activity/Vol] 23 U/L Normal 16-61 [facility] Comment on above: Order Comment: Kaleb aguilera Type: BLOOD SPECIMEN Ordering Facility: [facility] Address: [address] [place] [address] Performed By: #### 2 4323-8, 3, #### [facility] CLIA [id number] [address] [place] [address] [place] Magnesium SerPl-mCncon 09-21 Magnesium [Mass/Vol] 1.7 mg/dL Normal 1.7-2.3 [facility] Comment on above: Order Comment: Kaleb aguilera Type: BLOOD SPECIMEN Ordering Facility: [facility] Address: [address] [place] [address] Performed By: #### 2 4323-8, 3, #### [facility] CLIA [id number] [address] [place] [address] [place] Urinalysis complete panel (U )on 09-21-2022 Bacteria LM.HPF (Urine sed) [#/Area] Few Abnormal None Seen [facility] Comment on above: Order Comment: Kaleb aguilera Type: BLOOD SPECIMEN Ordering Facility: [facility] Address: [address] [place], [place] [address] Performed By: #### 2 4323-8, 3039-3, #### [facility] CLIA [id number] [address] [place] [address] [place] Bilirubin Ql (U) 1+ Abnormal Negative [facility] Comment on above: Order Comment: Kaleb aguilera Type: BLOOD SPECIMEN Ordering Facility: [facility] Address: [address] [place] [address] Result Comment: Sugg est correlation with clinical findings and serum bilirubin if clinically indicated. Performed By: #### 2 4323-8, 3040-3, #### [facility] CLIA [id number] [address] [place] [address] [facility] [place] Clarity (Unsp spec) Slightly Cloudy Abnormal Clear [facility] Comment on above: Order Comment: Speci men Type: BLOOD SPECIMEN Ordering Facility: [facility] Address: [address] [place] [address] Performed By: #### 2 4323-8, 3039-3, #### [facility] CLIA [id number] [address] [place] [address] [facility] Color (U) Dark Yellow Abnormal Yellow [facility] Comment on above: Order Comment: Speci men Type: BLOOD SPECIMEN Ordering Facility: [facility] Address: [address] [place] [address] Performed By: #### 2 4323-8, 3039-3, #### [facility] CLIA [id number] [address] [place] [address] [facility] Epithelial cells LM.HPF (Urine sed) [#/Area] Few Normal [facility] Comment on above: Order Comment: Speci men Type: BLOOD SPECIMEN Ordering Facility: [facility] Address: [address] [place] [address] Performed By: #### 2 4323-8, 0-3, #### [facility] CLIA [id number] [address] [place] [address] [facility] Glucose Test strip (U) [Mass/Vol] Negative Normal Negative [facility] Comment on above: Order Comment: Speci men Type: BLOOD SPECIMEN Ordering Facility: [facility] Address: [address] [place] [address] Performed By: #### 2 4323-8, 3, #### [facility] CLIA [id number] [address] [facility] [place] [address] [place] Hemoglobin Ql (U) Negative Normal Negative [facility] Comment on above: Order Comment: Speci men Type: BLOOD SPECIMEN Ordering Facility: [facility] Address: [address] [place] [address] Performed By: #### 2 4323-8, 3039-3, #### [facility] CLIA [id number] [address] [place] [address] [place] Ketones Ql (U) 4+ Abnormal Negative [facility] Comment on above: Order Comment: Speci men Type: BLOOD SPECIMEN Ordering Facility: [facility] Address: [address] [place] [address] Performed By: #### 2 4323-8, 3, #### [facility] CLIA [id number] [address] [place] [address] [facility] Leukocyte esterase Test strip Ql (U) Negative Normal Negative [facility] Comment on above: Order Comment: Speci men Type: BLOOD SPECIMEN Ordering Facility: [facility] Address: [address] [place] [address] Performed By: #### 2 4323-8, 3, #### [facility] CLIA [id number] [address] [place] [address] [place] Nitrite Ql (U) Negative Normal Negative [facility] Comment on above: Order Comment: Speci men Type: BLOOD SPECIMEN Ordering Facility: [facility] Address: [address] [place] [address] Performed By: #### 2 4323-8, 3039-3, #### [facility] CLIA [id number] [address] [place] [address] [place] pH (U) 6.0 [pH] Normal 5.0-8.0 [facility] Comment on above: Order Comment: Speci men Type: BLOOD SPECIMEN Ordering Facility: [facility] Address: [address] [place] [address] Performed By: #### 2 4323-8, 3039-3, #### [facility] CLIA [id number] [address] [place] [address] [place] Protein (U) [Mass/Vol] Trace Abnormal Negative [facility] Comment on above: Order Comment: Speci men Type: BLOOD SPECIMEN Ordering Facility: [facility] Address: [address] [place] [address] Performed By: #### 2 4323-8, 3039-3, #### [facility] CLIA [id number] [address] [place] [address] [place] RBC LM.HPF (Urine sed) [#/Area] 0-3 /HPF Normal 0-3 /HPF [facility] Comment on above: Order Comment: Speci men Type: BLOOD SPECIMEN Ordering Facility: [facility] Address: [address] [place] [address] Performed By: #### 2 4323-8, 3, #### [facility] CLIA [id number] [address] [place] [address] [place] Specific gravity (U) [Rel density] 1.025 Normal 1.005-1.030 [facility] Comment on above: Order Comment: Speci men Type: BLOOD SPECIMEN Ordering Facility: [facility] Address: [address] [place] [address] Performed By: #### 2 4323-8, 3, #### [facility] CLIA [id number] [address] [place] [address] [facility] [place] Urobilinogen Ql (U) 1.0 EU/dL Normal 0.2-1.0 EU/dL [facility] Comment on above: Order Comment: Speci men Type: BLOOD SPECIMEN Ordering Facility: [facility] Address: [address] [place] [address] Performed By: #### 2 4323-8, 3040-3, 95512-8 #### [facility] CLIA [id number] [address] [place] [address] [place] WBC LM.HPF (Urine sed) [#/Area] 0-5 /HPF Normal 0-5 /HPF [facility] Comment on above: Order Comment: Speci men Type: BLOOD SPECIMEN Ordering Facility: [facility] Address: [place] [address] Performed By: #### 2 4323-8, 3040-3, #### [facility] CLIA [id number] [address] [place] [address] [place] URINE OB DIP B/Oon 2 Glucose Ql (U) Negative Neg mg/dL [facility] Protein.monoclonal (U) [Mass/Vol] Negative Neg mg/dL [facility] URINE OB DIP B/Oon 2 Glucose Ql (U) Negative Neg mg/dL [facility] Protein.monoclonal (U) [Mass/Vol] Negative Neg mg/dL [facility] URINE OB DIP B/Oon 2 Glucose Ql (U) Negative Neg mg/dL [facility] Protein.monoclonal (U) [Mass/Vol] Negative Neg mg/dL [facility] No Panel Informationon 04-19 [facility] URINE OB DIP B/Oon 2 Glucose Ql (U) Negative Neg mg/dL [facility] Protein.monoclonal (U) [Mass/Vol] Negative Neg mg/dL [facility] STREP A MOLECULAR (POC)on Procedural Control Valid [facility] Strep A (POCT) Negative Negative [facility] Initial Visit (Orthopaedic S urgery)on 07-21-2020 Initial Visit (Orthopaedic Surgery) Diagnoses/Problems Right carpal tunnel. Chief Complaint Here for carpal tunnel. [employer] wrist pain, no xrays today History of Present IllnessAmy presents for right wrist pain secondary to carpal tunnel. She had a cortisone injection a year ago which gave her relief. She had a recent and started noticing carpal tunnel like symptoms. She had tingling and numbness and is here for a cortisone injection. Her last injection was almost over a year ago. Review of Systems Review of systems, past medical history, social history and family history documented and initialed on the patient information form dated July 21, 2020. This was reviewed and entered into the electronic medical record. No fevers or chills. No headache or neck pain. No nausea or vomiting. No blurry vision. No chest pain, shortness of breath, or cough. No rash. No lower extremity pitting edema. Active Problems Problems Drug therapy (V58.69) (Z79.899) Headache (784.0) (R51.9) Migraines (346.90) (G43.909) Screening for condition (V82.9) (Z13.9) Syncope (780.2) (R55) Visual disturbance (368.9) (H53.9) Vitamin D deficiency (268.9) (E55.9) Past Medical History Past medical history was reviewed, no change from previous visit. Surgical History Problems History of Wrist surgery Family History Mother Family history of hypertension (V17.49) (Z82.49) Maternal Grandmother Family history of cerebral hemorrhage (V17.2) (Z82.0) Other Family history of diabetes mellitus (V18.0) (Z83.3) Social History Problems Alcohol use (V49.89) (Z72.89) Never a smoker Allergies No Known Drug Allergies Recorded By: Reggie Mcleod; 12/03/2018 1:18:16 PM Current Meds Medication NameInstruction Topiramate 25 MG Oral Tablet1 po QHS x 7 days, then 1 BID after that Unspecified Control Physical Exam Physical examination of the right hand and wrist shows that the skin is intact. There are no open wounds. No pain over the distal radius or distal ulna. No pain over the scaphoid bone. No pain over the metacarpal bones. Positive Phalen?s test and Tinel?s sign. No thenar atrophy. She is neurovascularly intact. Physical examination of the left hand and wrist was done for comparison. PROCEDURE NOTE: We did perform a cortisone injection into the carpal tunnel with hydrodissection and fenestration of the flexor retinaculum. The patient tolerated the procedure well today. Results/Data None today. Health Management Anne presents for right carpal tunnel most likely secondary to her . She had similar carpal tunnel symptoms during her first . She responded well to the cortisone injection. We will go forward with the cortisone injection today which she responded well to. She would benefit from an EMG/nerve conduction study. She will call the office if she would like to go forward with those EMG/nerve conduction study studies. At this point, she tolerated her injection well and she will follow up as needed. She will call the office if she wants to go forward with the EMG/nerve conduction study of the upper extremity to evaluate for carpal tunnel. No office charge for today?s visit. No charge for today?s injection. Signatures Electronically signed by : Carmela Jewell, ; Jul 24 2020 1:04PM EST ([employer]er/Rec order) Electronically signed by : Janene Hirsch MD; Jul 25 2020 11:56AM EST Normal [facility] Vital Signs Date Time Vital Sign Value Performing Clinician Faci lity 12-23-2024 09:44-0400 Body mass index (BMI) [Ratio] 30.2 kg/m2 Dr. Kenny Washburn DO Work Phone: [facility] 12-23-2024 09:44-0400 Body temperature 97.5 [degF] Dr. Kenny Washburn DO Work Phone: [facility] 12-23-2024 09:44-0400 Body weight 78.[address] Kenny Washburn DO Work Phone: [facility] 12-23-2024 09:44-0400 Diastolic blood pressure 74 mm[Hg] Dr. Kenny Washburn DO Work Phone: [facility] 12-23-2024 09:44-0400 Heart rate 70 /min Dr. Kenny Wahsburn DO Work Phone: [facility] 12-23-2024 09:44-0400 Respiratory rate 16 /min Dr. Kenny Washburn DO Work Phone: [facility] 12-23-2024 09:44-0400 SaO2% (BldA) [Mass fraction] 97 % Dr. Kenny Washburn DO Work Phone: [facility] 12-23-2024 09:44-0400 Systolic blood pressure 112 mm[Hg] Dr. Kenny Washburn DO Work Phone: [facility] 03-27-2024 10:19-0400 Body height 160 cm Denver Catalan MD Work Phone: [facility] 03-27-2024 10:19-0400 Body mass index (BMI) [Ratio] 30.85 kg/m2 Denver Catalan MD Work Phone: [facility] 03-27-2024 10:19-0400 Body weight 79 kg Denver Catalan MD Work Phone: [facility] 03-27-2024 10:19-0400 Diastolic blood pressure 78 mm[Hg] Denver Catalan MD Work Phone: [facility] 03-27-2024 10:19-0400 Systolic blood pressure 116 mm[Hg] Denver Catalan MD Work Phone: [facility] 12-16-2023 11:24-0400 Body temperature 98.4 [degF] Christel Chris APRN.KAIAKO KURA TUARUA Work Phone: [facility] 12-16-2023 11:24-0400 Diastolic blood pressure 89 mm[Hg] Christel Chris APRN.KAIAKO KURA TUARUA Work Phone: [facility] 12-16-2023 11:24-0400 Heart rate 92 /min Christel Chris APRN.KAIAKO KURA TUARUA Work Phone: [facility] 12-16-2023 11:24-0400 Respiratory rate 16 /min Christel Chris APRN.KAIAKO KURA TUARUA Work Phone: [facility] 12-16-2023 11:24-0400 SaO2% (BldA) [Mass fraction] 97 % Christel Chris APRN.KAIAKO KURA TUARUA Work Phone: [facility] 12-16-2023 11:24-0400 Systolic blood pressure 142 mm[Hg] Christel Chris ROSENDO Work Phone: [facility] 01-17-2023 11:25-0400 Body height 157.5 cm Denver Catalan MD Work Phone: [facility] 01-17-2023 11:25-0400 Body weight 71.22 kg Denver Catalan MD Work Phone: [facility] 01-17-2023 11:25-0400 Diastolic blood pressure 72 mm[Hg] Denver Catalan MD Work Phone: [facility] 01-17-2023 11:25-0400 Systolic blood pressure 118 mm[Hg] Denver Catalan MD Work Phone: [facility] 11-20-2022 13:42-0500 Body height 157.5 cm Denver Catalan MD Work Phone: [facility] 11-20-2022 13:42-0500 Body weight 82.56 kg Denver Catalan MD Work Phone: [facility] 11-20-2022 13:42-0500 Diastolic blood pressure 80 mm[Hg] Denver Catalan MD Work Phone: [facility] 11-20-2022 13:42-0500 Heart rate 96 /min Denver Catalan MD Work Phone: [facility] 11-20-2022 13:42-0500 Systolic blood pressure 122 mm[Hg] Denver Catalan MD Work Phone: [facility] 11-08-2022 10:56-0500 Body weight 80.74 kg Denver Catalan MD Work Phone: [facility] 11-08-2022 10:56-0500 Diastolic blood pressure 80 mm[Hg] Denver Catalan MD Work Phone: [facility] 11-08-2022 10:56-0500 Heart rate 114 /min Denver Catalan MD Work Phone: [facility] 11-08-2022 10:56-0500 Systolic blood pressure 114 mm[Hg] Denvre Catalan MD Work Phone: [facility] 11-08-2022 10:55-0500 Body height 157.5 cm Denver Catalan MD Work Phone: [facility] 10-30-2022 11:04-0500 Diastolic blood pressure 63 mm[Hg] Denver Catalan MD Work Phone: [facility] 10-30-2022 11:04-0500 Systolic blood pressure 110 mm[Hg] Denver Catalan MD Work Phone: [facility] 10-25-2022 11:09-0500 Body weight 79.38 kg Denver Catalan MD Work Phone: [facility] 10-25-2022 11:09-0500 Diastolic blood pressure 74 mm[Hg] Denver Catalan MD Work Phone: [facility] 10-25-2022 11:09-0500 Heart rate 104 /min Denver Catalan MD Work Phone: [facility] 10-25-2022 11:09-0500 Systolic blood pressure 108 mm[Hg] Denver Catalan MD Work Phone: [facility] 10-25-2022 11:08-0500 Body height 157.5 cm Denver Catalan MD Work Phone: [facility] 09-27-2022 13:05-0500 Diastolic blood pressure 72 mm[Hg] Denver Catalan MD Work Phone: [facility] 09-27-2022 13:05-0500 Systolic blood pressure 116 mm[Hg] Denver Catalan MD Work Phone: [facility] 08-15-2022 06:57-0500 Diastolic blood pressure 64 mm[Hg] Vika Weaver APRN.CNM Work Phone: [facility] 08-15-2022 06:57-0500 Systolic blood pressure 106 mm[Hg] Vika Weaver APRN.CNM Work Phone: [facility] 07-19-2022 10:55-0400 Body height 157.5 cm Denver Catalan MD Work Phone: [facility] 07-19-2022 10:55-0400 Body weight 74.39 kg Denver Catalan MD Work Phone: [facility] 07-19-2022 10:55-0400 Diastolic blood pressure 64 mm[Hg] Denver Catalan MD Work Phone: [facility] 07-19-2022 10:55-0400 Heart rate 104 /min Denver Catalan MD Work Phone: [facility] 07-19-2022 10:55-0400 Systolic blood pressure 112 mm[Hg] Denver Catalan MD Work Phone: [facility] 06-21-2022 15:02-0400 Body weight 72.12 kg Denver Catalan MD Work Phone: [facility] 06-21-2022 15:02-0400 Diastolic blood pressure 74 mm[Hg] Denver Catalan MD Work Phone: [facility] 06-21-2022 15:02-0400 Heart rate 98 /min Denevr Catalan MD Work Phone: [facility] 06-21-2022 15:02-0400 Systolic blood pressure 108 mm[Hg] Denver Catalan MD Work Phone: [facility] 06-21-2022 15:01-0400 Body height 157.5 cm Denver Catalan MD Work Phone: [facility] 05-25-2022 10:37-0400 Body height 157.5 cm Kaye Dumont APRN.CNP Work Phone: [facility] 05-25-2022 10:37-0400 Body weight 70.31 kg Kaye Dumont BUYER LIAISON.KAIAKO KURA TUARUA Work Phone: [facility] 05-25-2022 10:37-0400 Diastolic blood pressure 76 mm[Hg] Kaye Dumont BUYER LIAISON.KAIAKO KURA TUARUA Work Phone: [facility] 05-25-2022 10:37-0400 Heart rate 91 /min Kayekenneth Dumont BUYER LIAISON.KAIAKO KURA TUARUA Work Phone: [facility] 05-25-2022 10:37-0400 Systolic blood pressure 110 mm[Hg] Kaye Coxty BUYER LIAISON.KAIAKO KURA TUARUA Work Phone: [facility] 04-19-2022 12:43-0400 Body height 157.5 cm Denver Catalan MD Work Phone: [facility] 04-19-2022 12:43-0400 Body weight 69.85 kg Denver Catalan MD Work Phone: [facility] 04-19-2022 12:43-0400 Diastolic blood pressure 78 mm[Hg] Denver Catalan MD Work Phone: [facility] 04-19-2022 12:43-0400 Heart rate 80 /min Denver Catalan MD Work Phone: [facility] 04-19-2022 12:43-0400 Systolic blood pressure 110 mm[Hg] Denver Catalan MD Work Phone: [facility] 03-05-2022 07:56-0400 Body temperature 98.2 [degF] Beni Patel BUYER LIAISON.KAIAKO KURA TUARUA Work Phone: [facility] 03-05-2022 07:56-0400 Body weight 73.3 kg Beni Pendselvin BUYER LIAISON.KAIAKO KURA TUARUA Work Phone: [facility] 03-05-2022 07:56-0400 Diastolic blood pressure 80 mm[Hg] Beni Pendlebury BUYER LIAISON.KAIAKO KURA TUARUA Work Phone: [facility] 03-05-2022 07:56-0400 Heart rate 114 /min Beni Patel BUYER LIAISON.KAIAKO KURA TUARUA Work Phone: [facility] 03-05-2022 07:56-0400 Respiratory rate 20 /min Beni Patel BUYER LIAISON.KAIAKO KURA TUARUA Work Phone: [facility] 03-05-2022 07:56-0400 SaO2% (BldA) [Mass fraction] 98 % Beni Patel BU[employer]ER LIAISON.KAIAKO KURA TUARUA Work Phone: [facility] 03-05-2022 07:56-0400 Systolic blood pressure 122 mm[Hg] [facility]i [facility] BUYER LIAISON.KAIAKO KURA TUARUA Work Phone: [facility] Encounters Encounter Date Encounter Type Care Provider Facility Start: 03-25-2025 ambulatory Jimmy Sewell ty:[facility] Start: 03-18-2025 Encounter for other preprocedural examination Kenny Washburn [facility] Start: 02-04-2025 End: 02-04-[address] Kenny Washburn DO Work Phone: [facility] Work Phone: Start: 02-04-2025 End: 02-04-[address] Kenny Washburn DO -Radiology, [facility] Work Phone: Start: 02-04-2025 End: 02-04-2025 ambulatory Kenny Washburn Facility:[facility] Start: 12-23-2024 Encounter for genera l adult medical examination without abnormal findings Jimmy Mandujano [facility] Start: 12-23-2024 Registered [employer] [facility] [facility] K ASSESSMENT -Employee Health Start: 12-23-2024 End: 12-23-[address] Jimmy Mandujano MD -[facility] Work Phone: Start: 12-23-2024 End: 12-23-[address] Jimmy Mandujano MD [facility] Start: 12-23-2024 End: 12-23-2024 ambulatory Jimmy Mandujano [facility] Start[facility] 10-27-[facility] Start: 10-27-2024 Non-patient / Non-visit Dr. Krissy craig MD -[facility] Start: 10-27-2024 End: 10-27-[address] Kenny Washburn DO -Pulmonary Services/Neurology Work Phone: Start: 10-27-2024 End: 10-27-2024 ambulatory [facility] Facility:[facility] Start: 07-06-2024 End: 07-06-2024 Refill Denver Catalan MD Work Phone: Obstetrics/Gynecology Start: 04-10-2024 Refill Kaye chaidez [employer]ISON.KAIAKO KURA TUARUA Work Phone: Obstetrics/Gynecology Comment on above: Refill Request Start: 03-27-2024 End: 03-27-2024 ambulatory DENVER CATALAN Facility:[facility] Start: 03-27-2024 End: 03-27-2024 Patient encounter procedure Denver Catalan MD Work Phone: Obstetrics/Gynecology Comment on above: Encounter for gyneco logical examination (general) (routine) without abnormal findings (Primary Dx); Cervical cancer screening; Generalized anxiety disorder Start: 03-27-2024 End: 03-27-2024 Patient encounter status Denver Catalan MD Work Phone: [facility] Start: 02-27-2024 Refill Kaye chaidez [employer] LIAISON.KAIAKO KURA TUARUA Work Phone: Obstetrics/Gynecology Comment on above: Refill Request Start: 01-28-2024 Refill Denver baer MD Work Phone: Obstetrics/Gynecology Start: 12-16-2023 End: 12-16-2023 ambulatory DENVER CATALAN Facility:[facility] Start: 12-16-2023 End: 12-16-2023 Patient encounter procedure Christel Chris BU[employer]ER LIAISON.KAIAKO KURA TUARUA Work Phone: [facility] Comment on above: Acute non-recurrent pansinusitis (Primary Dx) Start: 12-04-2023 Refill Denver baer MD Work Phone: Obstetrics/Gynecology Comment on above: Refill Request Start: 03-15-2023 End: 03-15-2023 ambulatory Denver Catalan MD Work Phone: Obstetrics/Gynecology Comment on above: anxiety ( Primary Dx); depression Start: 03-15-2023 End: 03-15-2023 Telemedicine consultation with patient Denver Catalan MD Work Phone: [facility] Start: 03-11-2023 ambulatory Denver baer MD Work Phone: Obstetrics/Gynecology Comment on above: Mental He alth Struggles Start: 03-11-2023 Telephone encounter Denver gates MD Work Phone: Obstetrics/Gynecology Comment on above: Nurse Triage Call Start: 01-17-2023 End: 01-17-2023 Patient encounter procedure Denver Catalan MD Work Phone: Obstetrics/Gynecology Comment on above: care and examination (Primary Dx) Start: 12-07-2022 End: 12-07-2022 Patient encounter procedure Char Bean APRN.CNM Work Phone: Obstetrics/Gynecology Comment on above: Encounter for routin e follow-up (Primary Dx); (spontaneous vaginal delivery) Start: 11-21-2022 End: 11-23-2022 Evaluation and management of inpatient [facility] Facility:[facility] Start: 11-20-2022 End: 11-20-2022 Patient encounter procedure Denver Catalan MD Work Phone: Obstetrics/Gynecology Comment on above: 40 weeks gestation o f (Primary Dx); care, subsequent in third trimester Start: 11-15-2022 ambulatory Denver bear MD Work Phone: Obstetrics/Gynecology Comment on above: Pepcid Prescription Start: 11-08-2022 End: 11-08-2022 Patient encounter procedure Denver Catalan MD Work Phone: Obstetrics/Gynecology Comment on above: care, subse quent , third trimester (Primary Dx); 38 weeks gestation of Start: 10-30-2022 End: 10-30-2022 Patient encounter procedure Denver Catalan MD Work Phone: Obstetrics/Gynecology Comment on above: care, subse quent , third trimester (Primary Dx); 37 weeks gestation of Start: 10-29-2022 ambulatory Denver baer MD Work Phone: [facility] Start: 10-29-2022 Patient encounter procedure Denver Catalan MD Work Phone: Obstetrics/Gynecology Comment on above: 37 Week Appointment Start: 10-25-2022 End: 10-25-2022 Patient encounter procedure Denver Catalan MD Work Phone: Obstetrics/Gynecology Comment on above: care, subse quent , third trimester (Primary Dx); 36 weeks gestation of ; screening for streptococcus B Start: 09-27-2022 End: 09-27-2022 Patient encounter procedure Denver Catalan MD Work Phone: Obstetrics/Gynecology Comment on above: care, subse quent , third trimester (Primary Dx); 32 weeks gestation of Start: 09-21-2022 End: 09-22-2022 Emergency department patient visit KAIDEN RANDHAWA Facility:[facility] Start: 09-18-2022 ambulatory Denver baer MD Work Phone: Obstetrics/Gynecology Comment on above: Blood Pressure & Fet al Heart Rate Start: 09-13-2022 Telephone encounter Denver gates MD Work Phone: [facility] Comment on above: Nurse Triage Call Start: 08-15-2022 End: 08-15-2022 Patient encounter procedure Vika Weaver APRN.CNM Work Phone: Obstetrics/Gynecology Comment on above: 26 weeks gestation o f (Primary Dx); Rh negative state in antepartum period Start: 07-19-2022 End: 07-19-2022 Patient encounter procedure Denver Catalan MD Work Phone: Obstetrics/Gynecology Comment on above: care, subse quent , second trimester (Primary Dx); 22 weeks gestation of Start: 06-21-2022 End: 06-21-2022 Patient encounter procedure Denver Catalan MD Work Phone: Obstetrics/Gynecology Comment on above: care, subse quent , second trimester (Primary Dx); 18 weeks gestation of ; Need for influenza vaccination; care of multigravida, antepartum; Rh negative state in antepartum period Start: 05-29-2022 ambulatory Denver baer MD Work Phone: Obstetrics/Gynecology Comment on above: Back to school cold Start: 05-25-2022 End: 05-25-2022 Patient encounter procedure Kaye Dumont BUYER LIAISON.KAIAKO KURA TUARUA Work Phone: Obstetrics/Gynecology Comment on above: care, subse quent in second trimester (Primary Dx); 14 weeks gestation of Start: 04-19-2022 End: 04-19-2022 Patient encounter procedure Denver Catalan MD Work Phone: Obstetrics/Gynecology Comment on above: Encounter for superv ision of normal in multigravida (Primary Dx); with inconclusive viability, single or unspecified fetus; care, subsequent , first trimester; 9 weeks gestation of with incon clusive viability, single or unspecified fetus (Primary Dx) Start: 03-05-2022 End: 03-05-2022 Patient encounter procedure Beni Patel APRN.KAIAKO KURA TUARUA Work Phone: [facility] Comment on above: Pharyngitis, unspeci fied etiology (Primary Dx); Acute sinusitis, recurrence not specified, unspecified location Start: 12-25-2021 End: 12-25-2021 ambulatory Jose Joseph APRN.KAIAKO KURA TUARUA Work Phone: Family Medicine Comment on above: Acute rhinosinusitis (Primary Dx) Start: 12-25-2021 End: 12-25-2021 Telemedicine consultation with patient Jose Joseph AUGUSTIN.JAMAL Work Phone: [facility] Procedures Date Procedure Procedure Detail Performing Clinician Start: 02-04-2025 X-ray of cervical spine Dr. Kenny Washburn DO Work Phone: Start: 12-23-2024 Serum inorganic phos phate measurement Dr. Kenny Washburn DO Work Phone: Start: 11-21-2022 Antibody screen NAVIN ZAMUDIO Comment on above: Order Comment: Speci men Type: BLOOD SPECIMENOrdering Facility: [facility] Address: [address] [place], [place] [id number] Performed By: #### T TAYLOR, [id number] ####JAYCE BLOOD BANKIA [id number] [address] [place] Start: 11-20-2022 URINE OB DIP B/O Denver Catalan MD Work Phone: Start: 11-08-2022 URINE OB DIP B/O Denver Catalan MD Work Phone: Start: 10-25-2022 URINE OB DIP B/O Denver Catalan MD Work Phone: Start: 07-19-2022 URINE OB DIP B/O Denver Catalan MD Work Phone: Start: 06-21-2022 INFLUENZA VACCINE QUADRIVALENT 6 MO - 64 YRS IM Denver Catalan MD Work Phone: Start: 06-21-2022 URINE OB DIP B/O Denver Catalan MD Work Phone: Start: 05-25-2022 URINE OB DIP B/O Teresaf rodriguez Dumont APRN.CNP Work Phone: Start: 04-19-2022 URINE OB DIP B/O Denver Catalan MD Work Phone: Start: 04-19-2022 Us uterus l imited 1/ fetuses Denver Catalan MD Work Phone: Start: 03-05-2022 JULES Benitez MOLECULAR (POC) Beni Patel APRN.CNP Work Phone: Plan of Treatment Date Care Activity Detail Author Start: 08-28-2032 Urine microalbumin profile [facility] Start: 04-14-2030 Urine microalbumin profile DTAP,TDAP,TD (6 - Td or Tdap) [facility] Start: 03-27-2029 Screening for malignant neoplasm of cervix Cervical Cancer Screening [facility] Start: 09-09-2025 End: 09-09-2025 Patient encounter procedure 09/09/2025 10:00 AM EST Office Visit Obstetrics/Gynecology [address] [place] [address] [place] [address] [place] [address] Annual Obstetrics/Gynecolog y Comment on above: Annual Start: 08-16-2025 HPV TESTING HPV TESTING [facility] Start: 08-16-2025 PAP TESTING PAP TESTING [facility] Start: 08-16-2025 Screening for malignant neoplasm of cervix [facility] Start: 12-23-2024 Patient referral [facility] Work Phone: Start: 05-31-2024 Covid-19 Vaccine ( season) Covid-19 Vaccine () [facility] Start: 05-31-2024 Influenza vaccination Influenza Vacc ine (#1) [facility] Start: 03-27-2024 End: 03-27-2024 Patient encounter procedure 03/27/2024 10:00 AM EDT Office Visit Obstetrics/Gynecology [address] [place] [address] [place] [address] [place] [address] Annual Obstetrics/Gynecolog y Comment on above: Annual Start: 09-30-2023 Behavioral Health Screening Behavioral Health Screening [facility] Start: 09-30-2023 Depression Assessment Depression Ass essment [facility] Start: 05-31-2023 Covid-19 Vaccine () Covid-19 Vaccine () [facility] Start: 09-30-2022 DEPRESSION ASSESSMENT DEPRESSION ASS ESSMENT [facility] Start: 08-15-2022 End: 10-15-2022 CBC panel - Blood by Automated count CBC Lab Routine 26 weeks gestation of Expected: 08/15/2022, Expires: 10/15/2022 [facility] Work Phone: Comment on above: Expected: 08/15/2022 , Expires: 10/15/2022 Start: 08-15-2022 End: 10-15-2022 GEST GLUC SCREEN, 1-HR, 50 GM, NON-FASTING GEST GLUC SCREEN, 1-HR, 50 GM, NON-FASTING Lab Routine 26 weeks gestation of Expected: 08/15/2022, Expires: 10/15/2022 [facility] Work Phone: Comment on above: Expected: 08/15/2022 , Expires: 10/15/2022 Start: 08-15-2022 End: 10-15-2022 SYPHILIS TOTAL W/REFLEX SYPHILIS TOTAL W/REFLEX Lab Routine 26 weeks gestation of Expected: 08/15/2022, Expires: 10/15/2022 [facility] Work Phone: Comment on above: Expected: 08/15/2022 , Expires: 10/15/2022 Start: 08-15-2022 End: 10-15-2022 TYPE + SCREEN TYPE + SCREEN Blood Bank Routine 26 weeks gestation of Rh negative state in antepartum period Expected: 08/15/2022, Expires: 10/15/2022 [facility] Work Phone: Comment on above: Expected: 08/15/2022 , Expires: 10/15/2022 Start: 06-21-2022 End: 08-21-2022 ALPHA FETOPRO MATERNAL ALPHA FETOPRO MATERNAL Lab Routine care of multigravida, antepartum Expected: 06/21/2022, Expires: 08/21/2022 [facility] Work Phone: Comment on above: Expected: 06/21/2022 , Expires: 08/21/2022 Start: 05-31-2022 Influenza vaccination [facility] Start: 04-19-2022 End: 06-19-2022 CBC panel - Blood by Automated count CBC Lab Routine Encounter for supervision of normal in multigravida Expected: 04/19/2022, Expires: 06/19/2022 [facility] Work Phone: Comment on above: Expected: 04/19/2022 , Expires: 06/19/2022 Start: 04-19-2022 End: 06-19-2022 Hepatitis B virus surface Ab [Presence] in Serum by Immunoassay HEP B SURF AG SCRN Lab Routine Encounter for supervision of normal in multigravida Expected: 04/19/2022, Expires: 06/19/2022 [facility] Work Phone: Comment on above: Expected: 04/19/2022 , Expires: 06/19/2022 Start: 04-19-2022 End: 06-19-2022 Hepatitis C virus Ab [Presence] in Serum HEP C AB IA W/CONF SCRN Lab Routine Encounter for supervision of normal in multigravida Expected: 04/19/2022, Expires: 06/19/2022 [facility] Work Phone: Comment on above: Expected: 04/19/2022 , Expires: 06/19/2022 Start: 04-19-2022 End: 06-19-2022 HIV 1+2 Ab [Presence] in Serum or Plasma by Immunoassay HIV 1 2 COMBO(AG/AB),WITH REFLEX TO DIFFERENTIATION Lab Routine Encounter for supervision of normal in multigravida Expected: 04/19/2022, Expires: 06/19/2022 [facility] Work Phone: Comment on above: Expected: 04/19/2022 , Expires: 06/19/2022 Start: 04-19-2022 End: 06-19-2022 RUBELLA IGG AB RUBELLA IGG AB Lab Routine Encounter for supervision of normal in multigravida Expected: 04/19/2022, Expires: 06/19/2022 [facility] Work Phone: Comment on above: Expected: 04/19/2022 , Expires: 06/19/2022 Start: 04-19-2022 End: 06-19-2022 SYPHILIS TOTAL W/REFLEX SYPHILIS TOTAL W/REFLEX Lab Routine Encounter for supervision of normal in multigravida Expected: 04/19/2022, Expires: 06/19/2022 [facility] Work Phone: Comment on above: Expected: 04/19/2022 , Expires: 06/19/2022 Start: 04-19-2022 End: 06-19-2022 TYPE + SCREEN TYPE + SCREEN Blood Bank Routine Encounter for supervision of normal in multigravida Expected: 04/19/2022, Expires: 06/19/2022 [facility] Work Phone: Comment on above: Expected: 04/19/2022 , Expires: 06/19/2022 Start: 09-30-2021 DEPRESSION ASSESSMENT DEPRESSION ASS ESSMENT [facility] Start: 06-19-2021 COVID-19 VACCINE (3 - Booster for Pfizer series) COVID-19 VACCINE (3 - Booster for Pfizer series) [facility] Start: 05-31-2021 Influenza vaccination INFLUENZA (#1) [facility] Start: 03-14-2021 COVID-19 VACCINE (3 - Booster for Pfizer series) COVID-19 VACCINE (3 - Booster for Pfizer series) [facility] Start: 04-17-2008 HPV Vaccine (2 - 3-dose series) HPV Vaccine (2 - 3-dose series) [facility] Start: 2007 Anxiety Screening Anxiety Screening [facility] Start: 2007 Depression Screening Depression Scre ening [facility] Start: 2007 HEPATITIS C SCREENING HEPATITIS C SC GLORIA [facility] Start: 2001 Adult depression screening assessment DEPRESSION SCREENING [facility] Bacteria identified in Urine by Culture URINE CULTURE Microbiology Routine Encounter for supervision of normal in multigravida Ordered: 04/19/2022 [facility] Work Phone: Comment on above: Ordered: 04/19/2022 Chlamydia trachomatis+Neisseria gonorrhoeae DNA [Presence] in Unspecified specimen by PHI with probe detection GC/CHLAMYDIA DNA DET Lab Routine Encounter for supervision of normal in multigravida Ordered: 04/19/2022 [facility] Work Phone: Comment on above: Ordered: 04/19/2022 OBSTETRIC ULTRASOUND WHI OBSTETRIC ULTRASOUND WHI Anc Imaging Routine care, subsequent in second trimester 14 weeks gestation of Ordered: 05/25/2022 [facility] Work Phone: Comment on above: Ordered: 05/25/2022 PAP TEST PAP TEST Lab Rou linda Cervical cancer screening Ordered: 03/27/2024 [facility] Work Phone: Comment on above: Ordered: 03/27/2024 Patient referral [facility] Work Phone: ROUTINE, GROUP B STREP PCR ROUTINE, GROUP B STREP PCR Microbiology Routine 36 weeks gestation of screening for streptococcus B Ordered: 10/25/2022 [facility] Work Phone: Comment on above: Ordered: 10/25/2022 SARS-CoV-2 (COVID-19 ) RNA [Presence] in Respiratory specimen by PHI with probe detection SELF CHECK COVID Microbiology Routine care, subsequent in third trimester Ordered: 11/20/2022 [facility] Work Phone: Comment on above: Ordered: 11/20/2022 [facility] Immunizations Immunization Date Immunization Notes Care Provider Fa [facility] 07-20-2024 influenza, seasonal, injectable, preservative free Dr. Kenny Washburn DO Work Phone: [facility] 10-07-2023 influenza, injectabl e, quadrivalent, preservative free Denver Catalan MD Work Phone: [facility] 10-07-2023 Pfizer Covid-19 (Comirnaty) Dr. Kenny Washburn DO Work Phone: [facility] 10-07-2023 influenza virus vacc ine, unspecified formulation Kaye Dumont APRN.KAIAKO KURA TUARUA Work Phone: [facility] 08-28-2022 RHO(D) immune globul in- IV or IM Denver Catalan MD Work Phone: [facility] 08-28-2022 tetanus toxoid, redu laure diphtheria toxoid, and acellular pertussis vaccine, adsorbed Denver Catalan MD Work Phone: [facility] 06-21-2022 influenza, injectabl e, quadrivalent, contains preservative Denver Catalan MD Work Phone: [facility] 01-17-2021 COVID-19 vaccine, ag e 12+ yr (PFIZER-BIONTECH - PURPLE TOP) Jose Joseph APRN.KAIAKO KURA TUARUA Work Phone: [facility] Work Phone: 12-29-2020 COVID-19 vaccine, ag e 12+ yr (PFIZER-BIONTECH - PURPLE TOP) Jose Joseph APRN.KAIAKO KURA TUARUA Work Phone: [facility] Work Phone: 06-09-2020 influenza, injectabl e, quadrivalent, contains preservative Jose Joseph APRN.KAIAKO KURA TUARUA Work Phone: [facility] 04-14-2020 RHO(D) immune globul in- IV or IM Jose Joseph APRN.KAIAKO KURA TUARUA Work Phone: [facility] 04-14-2020 tetanus toxoid, redu laure diphtheria toxoid, and acellular pertussis vaccine, adsorbed Jose Joseph APRN.KAIAKO KURA TUARUA Work Phone: [facility] 11-26-2019 influenza, injectabl e, quadrivalent, contains preservative Jose Joseph APRN.KAIAKO KURA TUARUA Work Phone: [facility] 01-10-2017 tetanus toxoid, redu laure diphtheria toxoid, and acellular pertussis vaccine, adsorbed Jose Joseph APRN.KAIAKO KURA TUARUA Work Phone: [facility] 11-20-2016 RHO(D) immune globul in- IV or IM Jose Joseph APRN.KAIAKO KURA TUARUA Work Phone: [facility] 09-06-2016 RHO(D) immune globul in- IV or IM Jose Joseph APRN.KAIAKO KURA TUARUA Work Phone: [facility] 07-17-2016 influenza, injectabl e, quadrivalent, contains preservative Jose Joseph APRN.KAIAKO KURA TUARUA Work Phone: [facility] Work Phone: 07-17-2016 influenza, seasonal, injectable Jose Joseph APRN.KAIAKO KURA TUARUA Work Phone: [facility] 03-20-2008 hepatitis B vaccine, pediatric or pediatric/adolescent dosage Jose Joseph APRN.KAIAKO KURA TUARUA Work Phone: [facility] Work Phone: 03-20-2008 HPV, unspecified formulation Jose Joseph APRN.KAIAKO KURA TUARUA Work Phone: [facility] Work Phone: 12-25-2007 hepatitis B vaccine, pediatric or pediatric/adolescent dosage Jose Joseph APRN.KAIAKO KURA TUARUA Work Phone: [facility] Work Phone: 10-01-2007 hepatitis B vaccine, pediatric or pediatric/adolescent dosage Jose Joseph APRN.KAIAKO KURA TUARUA Work Phone: [facility] Work Phone: 10-01-2007 meningococcal polysaccharide vaccine (MPSV4) Jose Joseph APRN.KAIAKO KURA TUARUA Work Phone: [facility] Work Phone: 05-16-2002 measles, mumps and rubella virus vaccine Jose Joseph APRN.KAIAKO KURA TUARUA Work Phone: [facility] Work Phone: 06-18-1990 diphtheria, tetanus toxoids and pertussis vaccine Jose Joseph APRN.KAIAKO KURA TUARUA Work Phone: [facility] Work Phone: 02-11-1990 diphtheria, tetanus toxoids and pertussis vaccine Jose Joseph BUYER LIAISON.KAIAKO KURA TUARUA Work Phone: [facility] Work Phone: 02-11-1990 trivalent poliovirus vaccine, live, oral Jose Joseph BUYER LIAISON.KAIAKO KURA TUARUA Work Phone: [facility] Work Phone: 1989 diphtheria, tetanus toxoids and pertussis vaccine Jose Joseph BUYER LIAISON.KAIAKO KURA TUARUA Work Phone: [facility] Work Phone: 1990 trivalent poliovirus vaccine, live, oral Jose Joseph BUYER LIAISON.KAIAKO KURA TUARUA Work Phone: [facility] Work Phone: Payers Date Payer Category Payer Self-pay 2019 Unknown MMO [employer] [id number] 2019-Present [phone] [address] [place] [address] PPO [id number] 2019 Unknown [id number] 2019 Unknown [id number] Unknown [id number] Unknown [id number] Unknown [id number] Unknown [id number] Unknown [id number] Unknown [id number] Social History Date Type Detail Facility Start: 07-17-2016 End: 02-04-2025 Tobacco smoking status NHIS Never smoked tobacco [facility] Start: 07-17-2016 End: 06-21-2022 Tobacco use and exposure Smokeless tobacco non-user [facility] Start: 12-25-2021 End: 03-05-2022 Alcohol intake Current drinker of alcohol (finding) [facility] Start: 12-25-2021 History SDOH Alcohol Frequency 2 [facility] Start: 12-25-2021 History SDOH Alcohol Std Drinks 1 [facility] Start: 08-16-2020 History SDOH Alcohol Comment occ [facility] Start: 12-25-2021 History SDOH Social Connections Phone 5 [facility] Start: 12-25-2021 History SDOH Social Connections Get Together 3 [facility] Start: 12-25-2021 History SDOH Physical Activity DPW 0 [facility] Start: 1990 Sex Assigned At Not on file [facility] Start: 12-15-2021 End: 08-28-2022 Exposure to SARS-CoV-2 (event) Not sure [facility] Start: 04-19-2022 End: 03-27-2024 Alcohol intake Ex-drinker (finding) [facility] Start: 02-26-2022 [facility] Start: 12-25-2021 End: 03-15-2023 History of Social function [facility] Start: 12-25-2021 End: 03-15-2023 Social connection and isolation panel [facility] Do you belong to any clubs or organizations such as congregation groups, unions, fraternal or athletic groups, or school groups? No [facility] Are you now , , , , never or living with a partner? [facility] How often to you hav e a drink containing alcohol? Monthly or less [facility] How many standard dr inks containing alcohol do you have on a typical day? 1 or 2 [facility] How often do you hav e 6 or more drinks on 1 occasion? Never [facility] How hard is it for y ou to pay for the very basics like food, housing, medical care, and heating Not hard at all [facility] Do you feel stress - tense, restless, nervous, or anxious, or unable to sleep at night because your mind is troubled all the time - these days [OSQ] Not at all [facility] (I/We) worried wheth er (my/our) food would run out before (I/we) got money to buy more. Never true [facility] Start: 1990 Sex Assigned At Female [facility] Sexual Orientation Heterosexual (finding) [facility] Goals Date Patient Goal Desired Activity /State Clinical Notes 06-27-2020 to 02-05-2025 Note Date & Type Note Facility 02-05-2025 Radiology Diagnostic study note [facility] [address] [place] [address] Cerv Spine Obl/Flex/Ext Comp MR#: [id number] Acct: [id number] Name: ANNE LAST Rep #: [id number] : 1990 F 34 From: Yordy Jara MD PCP: Dr. Jimmy Mandujano MD Status: R EG CLI Study:Cerv Spine Obl/Flex/Ext Comp Date of Ex am: 02/04/25 Exam# [id number] Ordering Dr: Kenny Washburn DO PROCEDURE: CERV SPINE OBL/FLEX/EXT COMP 02/04/2025 REASON FOR EXAM: RADICULOPATHY TECHNIQUE: 7 views of the cervical spine. AP with repeat, bilateral oblique, lateral, flexion-extension and open-mouth odontoid, 8 total images COMPARISON: None available FINDINGS: Cervical spine is visualized on the lateral view from the skull base to the top of T1. Straightening may represent positioning or spasm. No prevertebral soft tissue swelling. No fracture or malalignment. The disc spaces appear within limits. No significant appearing osseous foraminal narrowing identified. The visualized apices appear clear. No evidence of instability. RAD/Cerv Spine Obl/Flex/Ext Comp IMPRESSION: Straightening may represent positioning or spasm. Reading Location: [id number] CC: Dr. Jimmy Mandujano MD; Dr. Kenny Washburn DO ~ [employer]: Signed [facility] 12-23-2024 Evaluation note Diagnosis Onset Date Resolution Anxiety and depression acute [facility] [place] 2024 9:15am Encounter to establish care acute December 23, 2024 9:15am Preventative health care acute December 23, 2024 9:15am [facility] Work Phone: [phone] 987-331610-07-2024 Telephone encounter Note* Telephone Encounter - Renee Varela RN - 07/06/2024 11:03 AM EDT Patient's insurance would like her to start using mail order pharmacy. Annual 02/2024 Medications pended. [facility]10-07-2024 Miscellaneous Notes* Telephone Encounter - Renee Varela RN - 07/06/2024 11:03 AM EDT Patient's insurance would like her to start using mail order pharmacy. Annual 02/2024 Medications pended. [facility] Telephone encounter Note * Telephone Encounter - Audrey Perera RN - 04/10/2024 3:49 PM EDT 90 tablets + 3 refills ordered 03/27/2024 Audrey Perera RN [facility]07-12-2024 Miscellaneous Notes* Telephone Encounter - Audrey Perera RN - 04/10/2024 3:49 PM EDT 90 tablets + 3 refills ordered 03/27/2024 Audrey Perera RN [facility]24 NoteHNO ID: [id number] Author: DENVER CATALAN MD Service: ? Author Type: Physician Type: Progress Notes Filed: 03/27/2024 10:44 Note Text: Anne Last is a 33 year old G4P 3 female who presents for an annual exam. Today, she has no complaints. She doesn't get a period on the pill which she likes. Denies pelvic pain or vulvovaginal issues. Has gained weight and doesn't feel good. Hasn't been exercising. Busy with kids and work. Has occ CAROLE but not to often. No other pelvic floor concerns. Taking zoloft which has really helped with anxiety. wants to get a vasectomy OB History T3 L3 SAB1 IAB0 Ectopic0 Multiple0 Live Births3 Comment: Pt. Medical OB history reviewed- SS PAST MEDICAL HISTORY Diagnosis Date Abnormal Pap smear of cervix First degree perineal laceration during delivery 06/27/2020 Generalized anxiety disorder H/O LEEP 2009 Rh incompatibility PAST SURGICAL HISTORY Procedure Laterality Date LEEP PROCEDURE (SHEAR SETTER DEPT)_*FL 2008 PAST SURGICAL HISTORY OF 2000 left wrist Alcohol Use: Not Currently (occ) Tobacco Use: Never Drug Use: No FAMILY HISTORY Problem Relation Age of Onset No Known Problems Mother No Known Problems Father Diabetes Paternal Grandfather MEDS: Current Outpatient Medications Medication Sig Dispense Refill norethindrone-e.estradiol-iron (MIBELAS 24 FE) 1 mg-20 mcg(24) /75 mg (4) Take 1 tablet by mouth once daily. 84 tablet 3 sertraline (ZOLOFT) 50 mg tablet Take 1 tablet by mouth once daily. 90 tablet 3 No current facility-administered medications for this visit. ALLERGIES: ALLERGIES No Known Allergies ROS: GENERAL: Negative for: Fatigue NECK: Negative for: Pain CARDIOLOGY: negative chest pain and palpitations RESPIRATORY: Negative for: Shortness of breath GASTROINTESTINAL: negative nausea, vomiting, diarrhea, constipation MUSCULOSKELETAL: Negative for: Muscle or joint pain NEUROLOGIC: negative for headaches PSYCHIATRIC: anxiety SKIN: Negative for: Rash, Itching ENDOCRINE: negative GENITOURINARY: Negative for: abnormal bleeding, pelvic pain, vaginal itching, vaginal discharge; negative urinary complaints BREAST: negative PE: Body mass index is 30.85 kg/m?. GENERAL:Well developed, Well nourished, No acute distress NECK: supple, no lymphadenopathy, no thyromegaly ABD: flat, nontender, no guarding, no rebound tenderness, no HSM EXT:no C/C/E SKIN:Skin color, texture, turgor normal. No rashes or lesions BREASTS: soft, non-tender, symmetric, no dominant mass, normal nipple-areolar complex, no lymphadenopathy, and no nipple discharge PELVIC:Normal BUS, NEFG, normal vagina, and normal cervix, Normal uterus, normal ovaries bilaterally pap/HPV done Assessment/Plan: (Z01.419) Encounter for gynecological examination (general) (routine) without abnormal findings (primary encounter diagnosis) (Z12.4) Cervical cancer screening (F41.1) Generalized anxiety disorder Normal exam. Pap/hpv done Refills of ocps and zoloft until vasectomy cleared. Reviewed diet, exercise, SBE, skin cancer prevention. Encouraged to focus on time for herself for exercise/cardio/strength. Reviewed tobacco, alcohol, drug use. The patient was counseled about oral contraceptive pills, including their mechanism of action, efficacy, potential side effects, risks and benefits. No contraindications exist including family history of clotting disorder or early stroke or heart attack. Any new medications given to pt. have been explained as to directions, reasons for prescribing and side effects Followup in 1 year /prn Denver Catalan, [facility]06-28-2024 History of Present illness Narrative* Denver Catalan MD - 03/27/2024 10:42 AM EDT Anne Last is a 33 year old G4P 3 female who presents for an annual exam. Today, she hasno complaints. She doesn't get a period on the pill which she likes. Denies pelvic pain or vulvovaginal issues. Has gained weight and doesn't feel good. Hasn't been exercising. Busy with kids and work. Has occ CAROLE but not to often. No other pelvic floor concerns. Taking zoloft which has really helped with anxiety. wants to get a vasectomy OB History T3 L3 SAB1 IAB0 Ectopic0 Multiple0 Live Births3 Comment: Pt. Medical OB history reviewed- SS PAST MEDICAL HISTORY Diagnosis Date Abnormal Pap smear of cervix First degree perineal laceration during delivery 06/27/2020 Generalized anxiety disorder H/O LEEP 2009 Rh incompatibility PAST SURGICAL HISTORY Procedure Laterality Date LEEP PROCEDURE (SHEAR SETTER DEPT)_*FL 2008 PAST SURGICAL HISTORY OF 2000 left wrist Alcohol Use: Not Currently (occ) Tobacco Use: Never Drug Use: No FAMILY HISTORY Problem Relation Age of Onset No Known Problems Mother No Known Problems Father Diabetes Paternal Grandfather MEDS: Current Outpatient Medications Medication Sig Dispense Refill norethindrone-e.estradiol-iron (MIBELAS 24 FE) 1 mg-20 mcg(24) /75 mg (4) Take 1 tablet by mouth once daily. 84 tablet 3 sertraline (ZOLOFT) 50 mg tablet Take 1 tablet by mouth once daily. 90 tablet 3 No current facility-administered medications for this visit. ALLERGIES: ALLERGIES No Known Allergies ROS: GENERAL: Negative for: Fatigue NECK: Negative for: Pain CARDIOLOGY: negative chest pain and palpitations RESPIRATORY: Negative for: Shortness of breath GASTROINTESTINAL: negative nausea, vomiting, diarrhea, constipation MUSCULOSKELETAL: Negative for: Muscle or joint pain NEUROLOGIC: negative for headaches PSYCHIATRIC: anxiety SKIN: Negative for: Rash, Itching ENDOCRINE: negative GENITOURINARY: Negative for: abnormal bleeding, pelvic pain, vaginal itching, vaginal discharge; negative urinary complaints BREAST: negative PE: Body mass index is 30.85 kg/m . GENERAL:Well developed, Well nourished, No acute distress NECK: supple, no lymphadenopathy, no thyromegaly ABD: flat, nontender, no guarding, no rebound tenderness, no HSM EXT:no C/C/E SKIN:Skin color, texture, turgor normal. No rashes or lesions BREASTS: soft, non-tender, symmetric, no dominant mass, normal nipple-areolar complex, no lymphadenopathy, and no nipple discharge PELVIC:Normal BUS, NEFG, normal vagina, and normal cervix, Normal uterus, normal ovaries bilaterally pap/HPV done Assessment/Plan: (Z01.419) Encounter for gynecological examination (general) (routine) without abnormal findings (primary encounter diagnosis) (Z12.4) Cervical cancer screening (F41.1) Generalized anxiety disorder Normal exam. Pap/hpv done Refills of ocps and zoloft until vasectomy cleared. Reviewed diet, exercise, SBE, skin cancer prevention. Encouraged to focus on time for herself for exercise/cardio/strength. Reviewed tobacco, alcohol, drug use. The patient was counseled about oral contraceptive pills, including their mechanism of action, efficacy, potential side effects, risks and benefits. No contraindications exist including family history of clotting disorder or early stroke or heart attack. Any new medications given to pt. have been explained as to directions, reasons for prescribing and side effects Followup in 1 year /laura Catalan MD documented [facility]Day[facility]* Layne Dillard MA - 03/27/2024 10:18 AM EDT Risk Control Manager offered: Patient declines. [facility]* Layne Dillard MA - 03/27/2024 10:18 AM EDT Risk Control Manager offered: Patient declines. documented in this encounterDay[facility]04-30-2024 Telephone encounter Note * Telephone Encounter - Nichole Norton RN - 01/28/2024 8:32 AM EDT Patient called nurse line with refill request. Last SHEAR SETTER annual: 6wk PP visit 01/17/2023 Next SHEAR SETTER annual: 03/27/2024 Requested Prescriptions Pending Prescriptions Disp Refills norethindrone-e.estradiol-iron (MIBELAS 24 FE) 1 mg-20 mcg(24) /75 mg (4) 84 tablet 0 Sig: Take 1 tablet by mouth once daily. Message forwarded to provider for review. Nichole Norton RN [facility]04-30-2024 Miscellaneous Notes* Telephone Encounter - Nichole Norton RN - 01/28/2024 8:32 AM EDT Patient called nurse line with refill request. Last SHEAR SETTER annual: 6wk PP visit 01/17/2023 Next SHEAR SETTER annual: 03/27/2024 Requested Prescriptions Pending Prescriptions Disp Refills norethindrone-e.estradiol-iron (MIBELAS 24 FE) 1 mg-20 mcg(24) /75 mg (4) 84 tablet 0 Sig: Take 1 tablet by mouth once daily. Message forwarded to provider for review. Nichole Norton RN documented in this encounterDay[facility]03-18-2024 Instructions* Patient Instructions* Christel Chris APRN.JAMAL - 12/16/2023 3:45 PM EDT Antibiotics sent to your pharmacy to treat for sinus infection. Take as directed for the full duration. Do not stop early even if symptoms are improving. Rest and push fluids. You may take uqmy-tyc-luibald antihistamine such as Claritin or Zyrtec as well as a nasal steroid such as fluticasone. Use as directed per package instructions. For additional relief: Sleep elevated Use bedside humidification May use galc-kpk-amxzeug saline nasal rinse, use with purified water. Follow-up with primary care in 3 to 5 days if no improvement. Go directly to the ER for any new or worsening symptoms including face or neck swelling, trouble breathing or swallowing, severe headaches or inability keep fluids down documented in this encounterDayton [facility]03-18-2024 NoteHNO ID: [id number] Author: CHRISTEL CHRIS APRN.JAMAL Service: ? Author Type: Nurse Practitioner Type: Progress Notes Filed: 12/16/2023 15:47 Note Text: This note was created using NoteWriter. Subjective Anne Last is a 33 year old female. CC: Sinus symptoms x 2 weeks HPI 33-year-old female presenting to the clinic with sinus symptoms for the last 2 weeks. Endorses nasal congestion, postnasal drainage, runny nose, sinus pressure and pain, sore throat, headaches. Has also developed a productive cough within the last few days. Has been taking Mucinex with temporary relief in symptoms. Endorses adequate fluid intake. muxinex Review of Systems Constitutional: Negative for chills, diaphoresis and fever. HENT: Positive for congestion, postnasal drip, rhinorrhea, sinus pressure, sinus pain and sore throat. Negative for ear discharge, ear pain, facial swelling, trouble swallowing and voice change. Eyes: Negative for discharge and redness. Respiratory: Positive for cough. Negative for shortness of breath and wheezing. Cardiovascular: Negative for chest pain. Gastrointestinal: Negative for abdominal pain, diarrhea, nausea and vomiting. Neurological: Positive for headaches. Objective BP 142/89 (BP Site: Left Arm, BP Position: Sitting, BP Cuff Size: Large Adult) Pulse 92 Temp 36.9 ?C (98.4 ?F) Resp 16 LMP 02/12/2022 SpO2 97% PAST MEDICAL HISTORY Diagnosis Date Abnormal Pap smear of cervix First degree perineal laceration during delivery 06/27/2020 H/O LEEP 2008 Rh incompatibility PAST SURGICAL HISTORY Procedure Laterality Date LEEP PROCEDURE (SHEAR SETTER DEPT)_*FL 2008 PAST SURGICAL HISTORY OF 1999 left wrist ALLERGIES Patient has no known allergies. MEDICATIONS MIBELAS 24 FE 1 mg-20 mcg(24) /75 mg (4) take 1 tablet by mouth once daily. sertraline (ZOLOFT) 50 mg tablet Take 1 tablet by mouth once daily. FAMILY HISTORY Problem Relation Age of Onset Diabetes Paternal Grandfather Social History Tobacco Use Smoking status: Never Smokeless tobacco: Never Vaping Use Vaping Use: Never used Substance Use Topics Alcohol use: Not Currently Comment: occ Drug use: No Physical Exam GENERAL: Seated in exam room in no acute distress. Appears well without diaphoresis. Nontoxic. VS AND triage notes reviewed. HEENT Head: Normal without deformity or trauma. Eyes: Bilateral lids grossly clear without erythema, crusting, lesions or swelling. Bilateral scerla and conjunctivae normal without injection or chemosis. Bilateral cornea grossly clear. PERRL. EOMI. EARS: Bilateral external ears appear normal. Hearing grossly intact. Bilateral EAC patent without drainage. Bilateral TMs intact, misha diaz, non-bulging. Nose: Audibly congested. No drainage. Face: Symmetric without swelling or lesions Mouth/Throat: MMM. No lesions or trismus. Maintains secretions. Posterior oropharynx is clear without swelling, erythema, exudate or lesions. Uvula midline. NECK: Supple without adenopathy or swelling. Trachea midline. CHEST: Speaks in complete sentences. No accessory muscle use, tripoding or retractions. Lungs are clear to auscultation throughout bilateral posterior lung chauhan. No rales, rhonchi, or wheezing. HEART: Regular rate and rhythm. No murmurs, rubs or gallops noted. PSYCH: Normal mood and affect. NEURO: Alert and oriented. Speech is clear. Answers questions appropriately. Cooperative for exam. Normal gait. Assessment and Plan 1. Acute non-recurrent pansinusitis - ICD9: 461.8, ICD10: J01.40 - AMOXICILLIN 875 MG-POTASSIUM CLAVULANATE 125 MG TABLET Patient instructions: Antibiotics sent to your pharmacy to treat for sinus infection. Take as directed for the full duration. Do not stop early even if symptoms are improving. Rest and push fluids. You may take enuo-tyu-gnksvjd antihistamine such as Claritin or Zyrtec as well as a nasal steroid such as fluticasone. Use as directed per package instructions. For additional relief: Sleep elevated Use bedside humidification May use jiih-wgb-pjsvwhe saline nasal rinse, use with purified water. Follow-up with primary care in 3 to 5 days if no improvement. Go directly to the ER for any new or worsening symptoms including face or neck swelling, trouble breathing or swallowing, severe headaches or inability keep fluids down Christel Chris APRN.[facility]03-18-2024 History of Present illness Narrative* Christel Chris APRN.[facility] - 12/16/2023 11:30 AM EDT This note was created using NoteWriter. Subjective Anne Last is a 33 year old female. CC: Sinus symptoms x 2 weeks HPI 33-year-old female presenting to the clinic with sinus symptoms for the last 2 weeks. Endorses nasal congestion, postnasal drainage, runny nose, sinus pressure and pain, sore throat, headaches. Has also developed a productive cough within the last few days. Has been taking Mucinex with temporary relief in symptoms. Endorses adequate fluid intake. muxinex Review of Systems Constitutional: Negative for chills, diaphoresis and fever. HENT: Positive for congestion, postnasal drip, rhinorrhea, sinus pressure, sinus pain and sore throat. Negative for ear discharge, ear pain, facial swelling, trouble swallowing and voice change. Eyes: Negative for discharge and redness. Respiratory: Positive for cough. Negative for shortness of breath and wheezing. Cardiovascular: Negative for chest pain. Gastrointestinal: Negative for abdominal pain, diarrhea, nausea and vomiting. Neurological: Positive for headaches. Objective BP 142/89 (BP Site: Left Arm, BP Position: Sitting, BP Cuff Size: Large Adult) Pulse 92 Temp 36.9 C (98.4 F) Resp 16 LMP 02/12/2022 SpO2 97% PAST MEDICAL HISTORY Diagnosis Date Abnormal Pap smear of cervix First degree perineal laceration during delivery 06/27/2020 H/O LEEP 2009 Rh incompatibility PAST SURGICAL HISTORY Procedure Laterality Date LEEP PROCEDURE (SHEAR SETTER DEPT)_*FL 2008 PAST SURGICAL HISTORY OF 1999 left wrist ALLERGIES Patient has no known allergies. MEDICATIONS MIBELAS 24 FE 1 mg-20 mcg(24) /75 mg (4) take 1 tablet by mouth once daily. sertraline (ZOLOFT) 50 mg tablet Take 1 tablet by mouth once daily. FAMILY HISTORY Problem Relation Age of Onset Diabetes Paternal Grandfather Social History Tobacco Use Smoking status: Never Smokeless tobacco: Never Vaping Use Vaping Use: Never used Substance Use Topics Alcohol use: Not Currently Comment: occ Drug use: No Physical Exam GENERAL: Seated in exam room in no acute distress. Appears well without diaphoresis. Nontoxic. VS & triage notes reviewed. HEENT Head: Normal without deformity or trauma. Eyes: Bilateral lids grossly clear without erythema, crusting, lesions or swelling. Bilateral scerla and conjunctivae normal without injection or chemosis. Bilateral cornea grossly clear. PERRL. EOMI. EARS: Bilateral external ears appear normal. Hearing grossly intact. Bilateral EAC patent without drainage. Bilateral TMs intact, misha diaz, non-bulging. Nose: Audibly congested. No drainage. Face: Symmetric without swelling or lesions Mouth/Throat: MMM. No lesions or trismus. Maintains secretions. Posterior oropharynx is clear without swelling, erythema, exudate or lesions. Uvula midline. NECK: Supple without adenopathy or swelling. Trachea midline. CHEST: Speaks in complete sentences. No accessory muscle use, tripoding or retractions. Lungs are clear to auscultation throughout bilateral posterior lung chauhan. No rales, rhonchi, or wheezing. HEART: Regular rate and rhythm. No murmurs, rubs or gallops noted. PSYCH: Normal mood and affect. NEURO: Alert and oriented. Speech is clear. Answers questions appropriately. Cooperative for exam. Normal gait. Assessment and Plan 1. Acute non-recurrent pansinusitis - ICD9: 461.8, ICD10: J01.40 - AMOXICILLIN 875 MG-POTASSIUM CLAVULANATE 125 MG TABLET Patient instructions: Antibiotics sent to your pharmacy to treat for sinus infection. Take as directed for the full duration. Do not stop early even if symptoms are improving. Rest and push fluids. You may take fgsq-vay-kxbflaj antihistamine such as Claritin or Zyrtec as well as a nasal steroid such as fluticasone. Use as directed per package instructions. For additional relief: Sleep elevated Use bedside humidification May use xzvh-iim-qfrbfhl saline nasal rinse, use with purified water. Follow-up with primary care in 3 to 5 days if no improvement. Go directly to the ER for any new or worsening symptoms including face or neck swelling, trouble breathing or swallowing, severe headaches or inability keep fluids down Christel Chris APRN.[facility] documented in this encounterDay[facility]03-08-2024 Miscellaneous Notes* Telephone Encounter - Nichole Norton RN - 12/06/2023 11:32 AM EST Medication refill request. Last SHEAR SETTER annual: 6wk PP visit 01/17/2023 Next SHEAR SETTER annual: 03/19/2024 Requested Prescriptions Pending Prescriptions Disp Refills MIBELAS 24 FE 1 mg-20 mcg(24) /75 mg (4) [Pharmacy Med Name: Mibelas 24 Fe 1 mg- 20 mcg (24)/75 mg (4) chewable tablet] 84 tablet 3 Sig: take 1 tablet by mouth once daily. Message forwarded to provider for review. Nichole Norton RN documented in this encounterDay[facility] Center06-20-2023 History of Present illness Narrative* Denver Catalan MD - 03/19/2023 9:11 AM EDT Virtual Visit: This is a virtual visit using [email or web address] video visit. It required patient-provider interaction for themedical decision making as documented below. I have communicated my name and active licensure. The patient s identity and physical location wereverified at the time of this visit. Either the patient or their legal care support representative has been informed of the risks and benefits of -- and alternatives to -- treatment through a remote evaluation andconsents to proceed with the evaluation remotely. Anne delivered in October and was doing well at her visit. Since she went back to work this past month, she finds herself more anxious all the time. She is often tearful again. She cannot focus on things well at home or at work. Her is supportive. She gets enough sleep and is eating fine. She does have names of counselors but hasn't called yet. Denies any harmful thoughts. No physical complaints. Denies any change to weight, hair or skin. She is taking her ocps. She is not . We discussed her symptoms at length and options to manage. Recommended making time for some exercise for herself or a little time on her own away from work/kids. Recommended seeing a therapist which she says she will. Discussed use of medication which she would like to try. Will start zoloft. Reviewed potential side effects. I asked her to contact me in 4 weeks with follow up or earlier if symptoms worsen. Medical Decision Making: Problems: Moderate: New problem with uncertain prognosis Risk: Moderate: Drug management Medical Decision Making Level: 4 - Moderate Signature: Denver Catalan MD Date: March 19, 2023 Time: 9:11 AM documented in this encounterDayton [facility] Center06-15-2023 Miscellaneous Notes* Telephone Encounter - Bibi Pretty RN - 03/14/2023 11:17 AM EDT Pt returning call, verified by name and . Pt accepts VV that was offered by Dr. Draper at 1245 tomorrow. Sending to PSS to add to schedule. Bibi Pretty RN * Telephone Encounter - Dilcia Noble RN - 03/14/2023 11:00 AM EDT Call placed to patient. M for patient to call [phone], push option 3 to speak to a nurse. Dilcia Noble RN * Telephone Encounter - Denver Catalan MD - 03/14/2023 9:54 AM EDT Please offer virtual visit tomorrow at 1245 * Telephone Encounter - Dilcia Noble RN - 03/14/2023 9:[address] to patient who was identified by name and . : 11/22/2022 PPV: 01/17/2023 Currently takes Minastrin 24 . Not BF Has h/o Anxiety and depression. Feels as if she is having a hard time balancing/adjusting. Mom of 3ctraci and works FT. Is experiencing a hard time focusing, losses temper easily, and feels overwhelmed daily. Has seen a counselor in the past, but no longer lives near counselor. Is interested in m edication. Has never been rx daily medication for anxiety/depression. Reports was rx Xanax in past,prior to any procedure. No thoughts of SI or HI. [place] DEPRESSION SCALE In the past 7 days: 1. I have been able to laugh and see the funny side of things 0 - As much as I always could 2. I have looked forward with enjoyment to things 1 - Rather less than I used to *3. I have blamed myself unnecessarily when things went wrong 3 - Yes, most of the time 4. I have been anxious or worried for no good reason 2 - Yes, sometimes *5. I have felt scared or panicky for no very good reason 1 - No, not much *6. Things have been getting on top of me 3 - Yes, most of the time I haven't been able to cope at all *7. I have been so unhappy that I have had difficulty sleeping 0 - No, never *8. I have felt sad or miserable 2 - Yes, sometimes *9. I have been so unhappy that I have been crying 2 - Yes, quite often *10. The thought of harming myself has occurred to me 0 - Never Score = 14 Maximum score: 30 Possible Depression: 10 or greater MCM sent with counselor info Pharmacy verified/correct Message forwarded to Dr. Catalan for review Dilcia Noble RN * Telephone Encounter - Dilcia Noble RN - 03/11/2023 11:21 AM EDT Patient sent a MCM today stating: Dr Catalan, I was hoping I could talk to you about this. I m not struggling with anxiety/OCD like I did with Benjy but I am having a difficult time handling the day to day. I find myself overwhelmed by everything and it s very difficult for me to concentrate and stay on task. I don t have a GP so I thought youwould be my best option for the short term. Please let me know if you would be able to squeeze me in for a video visit, I know your schedule is extremely full. Thank you!. : 11/22/2022 PPV: 01/17/2023 Call placed to patient. LVM for patient to call [phone], push option 3 to speak to a nurse. Dilcia Noble RN documented in this encounterDayton [facility] Medical Center04-20-2023 History of Present illness Narrative* Denver Catalan MD - 01/17/2023 11:45 AM EDT VISIT Anne Last is a 32 year old year old here for visit. She feels well. She is weaning because he was having issues with her breastmilk and he is doing fine now. Delivery Summary: Vidal Last [[id number]] Delivery Information: Delivery Date: 11/22/22 Delivery type: Vaginal, Spontaneous Delivering Clinician: Navin Zamudio MD Vacuum Used: No Forceps Used: No Shoulder Dystocia Present: No Lacerations: 1st Episiotomy: None : Gender: Male Weight (grams): 4522 g One Minute : 9 Five Minute : 9 ROS/ Recovery: Menses since delivery: none Menstrual pattern prior to : Regular periods [place] since delivery: Not resumed Depression: denies symptoms of depression. OB Depression and Anxiety Screening- This Encounter (since 01/16/2023) Over the past 2 weeks have you felt down, depressed, or hopeless? Negative Over the past two weeks, have you felt little interest or pleasure in doing things? Negative Feeling nervous, anxious or on edge 0-Not at all Not being able to stop or control worrying 0-Not al all Anxiety Pre-Screening Total (If >/= 3 additional questions will be reviewed) 0 Emotional support: Yes Bowel symptoms: Negative for abdominal discomfort, blood in stools or black stools and change in bowel habits; hemorrhoids min sx now Abdomen: N/A Bladder symptoms: No dysuria, gross hematuria, urinary frequency, urinary urgency, or incontinence Other issues: None Last Pap: 2019 normal HPV: negative PAST MEDICAL HISTORY Diagnosis Date Abnormal Pap smear of cervix First degree perineal laceration during delivery 06/27/2020 H/O LEEP 2009 Rh incompatibility PAST SURGICAL HISTORY Procedure Laterality Date LEEP 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 GENERAL: pleasant, female in no apparent distress HEENT: Normocephalic, atraumatic, mucus membranes moist, and no lesions NECK: Supple, full range of motion, no adenopathy, and thyroid normal DERMATOLOGY: Normal, without lesions, non-icteric, and non-hirsute BREAST: soft, non-tender, symmetric, no dominant mass, normal nipple-areolar complex, no lymphadenopathy, and no nipple discharge CHEST: Normal inspiratory effort ABDOMEN: soft, non-tender, and no masses. INCISION: N/A PELVIC: external genitalia normal, normal Bartholin's glands, urethra, [place]'s glands, no vulvar lesions, no cervical lesions, good vaginal support, physiologic discharge present, normal appearing perineal body and perianal region; small hemorrhoid noted BIMANUAL: uterus normal size, shape and consistency, no adnexal masses, and non-tender NEURO: exam grossly non-focal EXTREMITIES: normal ASSESSMENT AND PLAN: 32 year old status post with normal course. Contraception plan: Oral contraceptives . Condoms for first month Follow up: RTC for annual exams and PRN Denver Catalan MD documented in this encounterDayton [facility] Center04-20-2023 Instructions* Patient Instructions* Denver Catalan MD - 01/17/2023 11:45 AM EDT Vasectomy is a simple, safe operation that involves interrupting the tubes call the vas deferens that transport sperm. Vasectomy is a one-time procedure that provides permanent sterilization. The procedure is performed in the office under a local anesthetic. Most men are recovered within a few daysof the procedure. To schedule a consultation call [phone] or to learn more about vasectomy, visit [email or web address] Oral Contraceptives: The Pill Beginning the Pill Pills come in either a 21 day pack or a 28 day pack. With the 21 day pack you will take one pill for 21 days then no pill for 7 days, during which time you will have what is known as withdrawal bleeding. The 28 day pack allows you to take a pill every day of the cycle with no interruptions. The first 21 pills are the pills with the active ingredients and the last 7 are the nonmedical pills (placebo) or they may contain iron. There will be bleeding during the week you are taking the nonmedical pills. The advantage to the 28 day pack is that you don t have to keep track of when you stopped the pill. There are a group of 28 day pills that contain 24 active pills and only 4 placebo pills. Theseare formulated to give you a nutrition aides teacher period. Unless otherwise instructed, you should start your pills the Saturday following your first day of bleeding with your next period (if your period starts on a Saturday, you should start pills the same day) Read your information packet that comes with the pills. Pill Benefits The pill is the most popular method of reversible control being used today. Millions of womenrely on oral contraceptives as their control method. It is important to have an examination by your physician to determine if the pill is safe for you. There are several advantages associated with the pill: it is 97-98% effective when used correctly; may improve acne; periods are more regularand less painful; there is less iron deficiency anemia in pill users. intermediate use is associated with a decreased incidence of ovarian and uterine cancer. There is also no evidence that the pill increases the incidence of any cancer. How Oral Contraceptives Work Oral contraceptives come in two varieties. One is the combination pill which contains both estrogenand progesterone. Combination pills are considered 98-99% effective in preventing . This pill comes in either monophasic, which delivers the same amount of estrogen and progesterone throughout the cycle; and triphasic, which try tries to mimic the normal hormone cycle by changing the levels of the hormones in the pills during the month. There is no real advantage to taking the one over the other. The other type of pill only contains progesterone. It is best used for women who can t take estrogen. This type of pill is slightly less effective than the combination pill in preventing preg james. It is VERY important to take the progesterone only pill at the same time every day. Oral contraceptives prevent ovulation (release of an egg from the ovary) by suppressing the pituitary gland s action. The pill does NOT prevent sexually transmitted disease. Obtaining a Prescription It is important to see your doctor before starting oral contraceptives so that you can have a full medical history taken and a physical examination given. Certain medical conditions may make the pillinappropriate for you, therefore it is very important to be honest and as complete as possible withthe information you share with your doctor. The types of predisposing factors which would make the pill a poor choice of control would include: History of blood clots Stroke Serious liver disease or impaired liver function Unexplained vaginal bleeding or Cancer of the reproductive system Active gall bladder disease Hypertension Possible Side Effects It can take up to three months for your body to become adjusted to the pill. The more common side effects experienced at this time are: breakthrough spotting or bleeding, which is bleeding at any other time other than when you should be having a period; nausea or vomiting; breast tenderness; and mild fluid retention. There is no correction weight gain with the use of the pill. Breakthrough bleeding is the most common complaint of new pill users. There is no way to predict who will have it and there is no way of preventing it. Breakthrough bleeding usually subsides on its own with no further treatment after the first three months of taking the pill. If these symptoms continue to occur after the first three months you should check with your physician to see if there is any physical cause andpossibly change to another control pill. Problems: Missed 1 pill: Take 2 pills the next day. Missed 2 pills: Take 2 pills the next day and 2 pills the following day. Also use another form of control (condoms) along with the pill for the rest of the month. Missed 3 or more pills: You have two choices. You can take two pills each day until you are on schedule, plus use an additional form of control along with the pill for the rest of the month. Oryou can stop the pill and start a completely new pack of pills the next Saturday. You must use another form of control with the pill for at least the first two weeks of the new pack. You re ill and you have been vomiting or have diarrhea: You must use another form of control with the pill since the pill may not be fully absorbed during your illness. Continue to use the added control until the end of the cycle. Desire to become : Stop using the pill for one month before trying to become . Taking other medications: The control pill is less effective when you take the antibiotic Rifampin, epilepsy (seizure) drugs such as phenytoin, carbamazepine, phenobarbital, topiramate and somemedications for HIV. Let your doctor know if you start taking any of these medications while on thepill. Symptoms to Notify Your Doctor with Immediately: Pain in your chest or legs Continuous blurred vision Severe headaches Slurred speech Tingling or weakness on one side of your body Shortness of breath Swelling of one leg Refills of Control Pills You need to see a doctor every year for a refill of your prescription. This is necessary in order that your health can be monitored closely while you are taking control pills. If your prescription should before your next scheduled appointment you can usually get a one month extension from your doctors office if you call during regular business hours about one week before you need to start the new package of pills. This allows the physician to refer to your chart for necessary health information. documented in [facility] Nurse Note* Layne Dillard Ma - 01/17/2023 11:25 AM EDT Risk Control Manager offered: Patient declines. documented in this encounterDay[facility]03-10-[facility]23 History of Present illness Narrative* Char Bean APRN.[facility] - 12/07/2022 1:37 PM EST EARLY VISIT Anne Last is a 32 year old for a 2 week virtual virtual visit using [email or web address] video visit. It required patient-provider interaction for the medical decision making as documented below. Delivery Summary: Vidal Last [[id number]] Delivery Information: Delivery Date: 11/22/22 Delivery type: Vaginal, Spontaneous Delivering Clinician: Navin Zamudio MD Vacuum Used: No Forceps Used: No Shoulder Dystocia Present: No Lacerations: 1st Episiotomy: None Rudyard: Gender: Male Weight (grams): 4522 g One Minute : 9 Five Minute : 9 ROS: General: Denies any fever or chills Hypertension Screening: Headache? No. Visual Changes? No Epigastric Pain? No Increased Swelling? No Taking any BP medications at home? No If applicable, monitoring BP at home? (If Yes, include results) NA Mood: normal Depression: denies symptoms of depression. OB Depression and Anxiety Screening- This Encounter (since 12/06/2022) Over the past 2 weeks have you felt down, depressed, or hopeless? Negative Over the past two weeks, have you felt little interest or pleasure in doing things? Negative Feeling nervous, anxious or on edge 0-Not at all Not being able to stop or control worrying 0-Not al all Anxiety Pre-Screening Total (If >/= 3 additional questions will be reviewed) 0 Feeding: Breast feeding problems: None Bladder: No dysuria, gross hematuria, urinary frequency, urinary urgency, or incontinence Bowel symptoms: Negative for abdominal discomfort, blood in stools or black stools and change in bowel habits Abdomen: N/A Bleeding: light flow Bottom and Perineum: No issues Sleep: no sleep concerns, feels rested Vineyard since delivery: Not resumed Emotional support: Yes Exercise: N/A Other issues: None PAST MEDICAL HISTORY Diagnosis Date Abnormal Pap smear of cervix First degree perineal laceration during delivery 06/27/2020 H/O LEEP 2009 Rh incompatibility PAST SURGICAL HISTORY Procedure Laterality Date LEEP PROCEDURE (SHEAR SETTER DEPT)_*FL 2008 PAST SURGICAL HISTORY OF 2000 left wrist FAMILY HISTORY Problem Relation Age of Onset Diabetes Paternal Grandfather Social History Tobacco Use Smoking status: Never Smokeless tobacco: Never Vaping Use Vaping Use: Never used Substance Use Topics Alcohol use: Not Currently Comment: occ Drug use: No ALLERGIES No Known Allergies Current Outpatient Medications Medication Sig Breast Pump Use as directed vit no.124/iron/folic ( VITAMIN ORAL) Take by mouth. acetaminophen (TYLENOL EXTRA STRENGTH) 500 mg tablet Take 2 tablets by mouth every 6 hours as needed for pain. (Patient not taking: Reported on 12/07/2022) docusate sodium (COLACE) 100 mg capsule Take 2 capsules by mouth daily at bedtime. (Patient not taking: Reported on 12/07/2022) ibuprofen (MOTRIN) 600 mg tablet Take 1 tablet by mouth every 6 hours as needed for pain. (Patient not taking: Reported on 12/07/2022) hydrocortisone (ANUSOL-HC) 25 mg suppository 1 Suppository by RECTAL route twice daily. (Patient not taking: Reported on 12/07/2022) famotidine (PEPCID) 20 mg tablet Take 1 tablet by mouth twice daily. (Patient not taking: Reported on 12/07/2022) No current facility-administered medications for this visit. PHYSICAL EXAMINATION: General: pleasant,female in no apparent distress, A&O x 3. Incision: N/A ASSESSMENT AND PLAN: 32 year old status post with normal course. Contraception plan: vasectomy. Reinforced 6-week pelvic rest. Encouraged condom usage should patient deviate. Education: resources provided - see MA/RN note Follow up: Return to Clinic for 6 week visit and as needed Char Bean APRN.CNM documented in this encounterDay[facility]03-10-[facility]23 Instructions* Patient Instructions* Audrey George RN - 12/07/2022 1:28 PM EST Depression and Anxiety The first weeks of caring for a new baby are a lot of work. During this time, your feelings and moods may not be what you expected. This should help you understand when feelings are normal, and when you should call your health care provider. What are the baby blues? As many as 3 in every 4 women will have short periods of feeling sad, crying or feeling cranky or restless during the first few weeks after . This may be normal. Babies are fed every few hours, and you will not get a full night of sleep in those first weeks. Also, your body and hormones go through many changes after you give . Women who have baby blues often say they feel like crying but don't know why. Baby blues usually happen in the first or second week ( after you give ) and last less than a week. If your sadness lasts 2 weeks or more, call your health care provider. What is depression? About one in every 5 women will develop depression during the first few months after giving . Women who have depression may have some of these symptoms: -Feeling guilty -Not able to enjoy your baby and feeling like you are not bonding with your baby -Not able to sleep, even when the baby us sleeping -Sleeping too much and feeling too tired to get out of bed -Feeling overwhelmed and not able to do what you need to during the day -Not able to concentrate -Don't feel like eating -Feeling like you are not normal or not yourself anymore -Not able to make decisions -Feeling like a failure as a mother or that you cannot take care of your baby -Feeling lonely or all alone -Thinking your baby might be better off without you If you have any of these symptoms , tell someone you trust and call your health care provider rightaway! What is anxiety? About one in every 10 women will develop anxiety during the first few months after giving . Women who have anxiety may have some of these symptoms: -Constant worry -Racing thoughts -Unable to sit still -Sleeping too much or too little -Don't feel like eating -Feeling that something bad is going to happen -Physical symptoms like dizziness, hot flashes and nausea If you have any of these symptoms, tell someone you trust and call your health care provider right away! Which symptoms of depression and anxiety are dangerous? Sometimes a women with depression and / or anxiety will have thoughts of harming herselfor her baby. If you have thoughts of wanting to hurt yourself or your baby, tell someone you trust and call your health care provider immediately. You can also call 911 or one of the emergency hotlines listed below. Who is likely to have depression or anxiety? depression or anxiety can happen to any women. depression and anxiety sometimes happen together. Women with a personal or family history of anxiety or depression and women who have had stressful life events are more likely to have depression and /or anxiety. If you have any of these risks, talk with your health care provider before you give . Planning a head can help prevent problems after . If you have a history of depression or anxiety or someone in your family had one of these problems, it is important to plan ahead for how you can get help when you need it. If you can, see a counselor or mental health care provider before you give . If a mental health care provider is not available, you can work with your care provider to make a plan. You may not end up needed the extra help, but it is good to have someone available in case you need them. How can a health care provider help treat depression or anxiety? If you have depression or anxiety, it is important to get help. Treatments for these problems include therapy (counseling) and medication. Your health care provider can help you decide what treatment is best for you. How can I help myself treat depression or anxiety? Women who are depressed or anxious after having a baby may feel guilty and ashamed. You are not alone, and this is not your fault. It is important for your family and friends to understand that depression and/or anxiety can happen to anyone. Here are some things you can do to help yourself: -Support groups or group activities help some women. Other women who have had depressionand/or anxiety understand what you are going through. -Sleep is very important for health and healing. Most women with depression and/ or anxiety can have hard time sleeping. Try different things to help you sleep, such as warm bath before bedtime, massage, relaxation techniques, or medication. -if you are , you may need help with night feeding in order to get some uninterrupted sleep. -Exercise produces hormones that help you feel better. Even a small amount of activity helps. Family and friends can help with short walks or take care of your baby while you exercise. -Don't drink alcohol because it can make depression worse. -Try to do something that made you happy before you had depression and / or anxiety, such as listening to music, doing something with a friend, or practicing your leobardo or jewish. For more information: support international www..net Support help line:321.357.4922 Emergency hotlines (available all the time, 22/04) National crisis text line: test HOME to 050077 about any type of crisis [place] suicide prevention hotline: 380.554.5327 [employer]- [employer] Grade level :8.1 Approved August 2018. This handout replacespostpartum depression published in Volume 58, number6, August 2013 [employer] Www.sharewithwomen.org CC Mommy and Me virtual support group 11:30am-1pm Support for mothers with new babies and toddlers Free offering -Join other moms in this causal virtual group setting. -Join with your little one(s) and talk about life with your new baby. -receive support from other new mothers and an experienced wireless sales manager. For more information or to register: -Jayce childbirth education or call [phone] The Fourth Trimester for women Dealing with the unexpected things that happen to your body in the months after childbirth is worthtalking about. Do you have incontinence, back pain or feelings of instability in your core after childbirth? Join a [facility] pelvic health physical therapist to learn best steps to recover after giving . Additional topics that will be discussed include returning to an exercise regimen, addressing incontinence issues and pelvic floor muscle function, and perineal scar management and evaluating core muscle health. Virtual class Dates and times January 09, March 13, 12 pm May 08, 5pm Jul 10, 12pm Dec 13 5pm [place] online.scan the QR code, or visit [email or web address] documented in this encounterDay[facility]03-10-2023 Nurse Note* Audrey George RN - 12/07/2022 1:28 PM EST 2 week virtual visit. Pt has been identified by name and . Scipio score assessment completed - see flow sheet. Pt. denies any physical and emotional problems or concerns. Char Bean CNM notified. Audrey George RN documented in this encounterDay[facility]02-24-2023 NoteHNO ID: [id number] Author: Indira Weaver ([employer]) Service: ? Author Type: ? Type: Plan of Care Filed: 11/23/2022 12:19 PM Note Text: PHARMACY BEDSIDE DELIVERY SERVICE Patient Name: Anne Last The marked outpatient medications were Filled at: [place] and delivered to the patient's bedside to [facility] Medication List START taking these medications acetaminophen 500 mg tablet Commonly known as: TYLENOL EXTRA STRENGTH Take 2 tablets by mouth every 6 hours as needed for pain. docusate sodium 100 mg capsule Commonly known as: COLACE Take 2 capsules by mouth daily at bedtime. ibuprofen 600 mg tablet Commonly known as: MOTRIN Take 1 tablet by mouth every 6 hours as needed for pain. CONTINUE taking these medications Breast Pump Use as directed famotidine 20 mg tablet Commonly known as: PEPCID Take 1 tablet by mouth twice daily. hydrocortisone 25 mg suppository Commonly known as: ANUSOL-HC 1 Suppository by RECTAL route twice daily. VITAMIN ORAL You might also be taking other medications not listed above. If you have questions about any of your other medications, talk to the person who prescribed them or your Primary Care Provider. Indira Weaver ([employer]) PAGER: [phone] November 23, 2022 12:18 [facility]02-24-2023 NoteHNO ID: [id number] Author: Indira Weaver ([employer]) Service: ? Author Type: ? Type: Plan of Care Filed: 11/23/2022 12:18 PM Note Text: MATERIAL CONTROL SUPERVISOR BEDSIDE DELIVERY SURVEY 1. [facility] - YES Insurance Information as follows: 2. Insurance card on file - YES 3. Credit card for payment - N/A Pharmacy Discharge Medication Service: This patient has elected to receive their discharge prescriptions through the [facility] Bedside [facility] Delivery program. The prescriptions are currently being processed. A follow-up note will be entered once the prescriptions have been filled and delivered to the patient. Please contact me with any questions or updates to the patient's discharge medications. Indira Weaver ([employer]) DCT Contact Info: [phone] [phone] NoteHNO ID: [id number] Author: Margie Mendez APRN.JAMAL Service: Obstetrics Author Type: Nurse Practitioner Type: Progress Notes Filed: 11/23/2022 10:07 AM Note Text: OBSTETRICS PROGRESS NOTE SERVICE DATE: November 23, 2022 SERVICE TIME: 9: 40 AM ASSESSMENT: 32 year old female who is Day #1 status post Vaginal, Spontaneous delivery with male . RH neg; s/p Rhogam RI Hemorrhoid: Encouraged use of stool softeners, hydrocortisone cream, radha care products and Motrin/Tylenol for any discomfort. Patient voiced understanding. Patient doing well and meeting milestones Patient voices desire to be d/c home today Patient progressed through post delivery milestones without difficulty. Remained afebrile with stable vital signs throughout the period. Discharged after tolerating po well, ambulating, passing flatus, and urinating without difficulty. PLAN: Routine care. Encourage ambulation and IS usage. Advance diet. Encourage patient to use pain meds. . Control: Patient declines Discharge instructions given to patient regarding pelvic rest, bathing, stairs, walking, lifting, driving, and follow-up. Patient expresses understanding. Plan of care discussed with: Provider, RN, Patient. Anticipate discharge day: PPD #2 SUBJECTIVE: Tolerating PO intake. Urinating without difficulty. Passing flatus. Pain well controlled with current regimen. Lochia decreasing. Ambulating without difficulty. OBJECTIVE: PHYSICAL EXAM: Heart: RR, S1, S2 Lungs: clear to auscultation Abdomen: Soft Appropriately tender to palpation Bowel sounds present Fundus firm below umbilicus Non-distended Extremities: No calf tenderness and No edema LAST VITALS: Pulse BP Resp O2 Sat Temp Pain 94 118/74 18 97 % 36.8 ?C (98.2 ?F) 3 Avg Min Max Vitals (last 12 hours) Flowsheet Row Name Average Min Max BP: Systolic 118 118 118 BP: Diastolic 74 74 74 Temp 36.8 ?C (98.2 ?F) 36.8 ?C (98.2 ?F) 36.8 ?C (98.2 ?F) Pulse 94 94 94 Resp 18 18 18 HT/WT/BMI: Height Weight BMI 157.5 cm (5' 2) 82.6 kg (182 lb) 33.29 LABS ABO/RH: 11/21/2022: A; Negative RUBELLA: 05/18/2022: Positive HANDH: Hematocrit (%) Date Value 11/21/2022 33.7 Hemoglobin (g/dL) Date Value 11/21/2022 11.1 Diagnostic tests reviewed for today's visit: Most recent labs SIGNATURE: Margie Mendez APRN.CNP PATIENT NAME: Anne Last DATE: November 23, 2022 TIME: 9:40 [facility] [employer] [facility]02-23-2023 History of Past illness Narrative* Problem Noted Date Resolved Date Normal labor and delivery 11/22/20222022 Normal labor 11/21/2022 01/17/2023 care of multigravida, antepartum 202101/17/2023 Rh negative state in antepartum period 2 01/17/2023 Normal labor 06/27/2020 06/27/2020 care following vaginal delivery 06/2708/16/2020 First degree perineal laceration during delivery 06/27/2020 08/16/2020 At risk for difficulty 06/27/2020 08/16/2020 General counseling and advice for contraceptive management 05/12/2020 08/16/2020 Overview: [place] until vasectomy Rh negative state in antepartum period 0 08/16/2020 Supervision of other normal 11/26/2019 08/16/2020 History of loop electrosurgi mynor excision procedure (LEEP) of cervix affecting , antepartum 11/26/2019 08/16/2020 Overview: No issues with cervical length last . Labor and delivery, indication for care 02/18/20 17 04/11/2017 Rh negative state in antepartum period 7 04/11/2017 Hx LEEP (loop electrosurgica l excision procedure), cervix, 08/14/2016 04/11/2017 First 07/17/2016 04/11/2017 documented as of this encounter (statuses as of 01/18/2023) [facility] of Past illness Narrative* Problem Noted Date Resolved Date Normal labor and delivery 11/22/20222022 Normal labor 11/21/2022 01/17/2023 care of multigravida, antepartum 202101/17/2023 Rh negative state in antepartum period 2 01/17/2023 Normal labor 06/27/2020 06/27/2020 care following vaginal delivery 06/2708/16/2020 First degree perineal laceration during delivery 06/27/2020 08/16/2020 At risk for difficulty 06/27/2020 08/16/2020 General counseling and advice for contraceptive management 05/12/2020 08/16/2020 Overview: [place] until vasectomy Rh negative state in antepartum period 0 08/16/2020 Supervision of other normal 11/26/2019 08/16/2020 History of loop electrosurgi mynor excision procedure (LEEP) of cervix affecting , antepartum 11/26/2019 08/16/2020 Overview: No issues with cervical length last . Labor and delivery, indication for care 02/18/20 17 04/11/2017 Rh negative state in antepartum period 7 04/11/2017 Hx LEEP (loop electrosurgica l excision procedure), cervix, 08/14/2016 04/11/2017 First 07/17/2016 04/11/2017 documented as of this encounter (statuses as of 03/11/2023) [facility] of Past illness Narrative* Problem Noted Date Resolved Date Normal labor and delivery 11/22/20222022 Normal labor 11/21/2022 01/17/2023 care of multigravida, antepartum 202101/17/2023 Rh negative state in antepartum period 2 01/17/2023 Normal labor 06/27/2020 06/27/2020 care following vaginal delivery 06/2708/16/2020 First degree perineal laceration during delivery 06/27/2020 08/16/2020 At risk for difficulty 06/27/2020 08/16/2020 General counseling and advice for contraceptive management 05/12/2020 08/16/2020 Overview: [place] until vasectomy Rh negative state in antepartum period 0 08/16/2020 Supervision of other normal 11/26/2019 08/16/2020 History of loop electrosurgi mynor excision procedure (LEEP) of cervix affecting , antepartum 11/26/2019 08/16/2020 Overview: No issues with cervical length last . Labor and delivery, indication for care 02/18/20 17 04/11/2017 Rh negative state in antepartum period 7 04/11/2017 Hx LEEP (loop electrosurgica l excision procedure), cervix, 08/14/2016 04/11/2017 First 07/17/2016 04/11/2017 documented as of this encounter (statuses as of 03/14/2023) [facility] of Past illness Narrative* Problem Noted Date Resolved Date Normal labor and delivery 11/22/20222022 Normal labor 11/21/2022 01/17/2023 care of multigravida, antepartum 202101/17/2023 Rh negative state in antepartum period 2 01/17/2023 Normal labor 06/27/2020 06/27/2020 care following vaginal delivery 06/2708/16/2020 First degree perineal laceration during delivery 06/27/2020 08/16/2020 At risk for difficulty 06/27/2020 08/16/2020 General counseling and advice for contraceptive management 05/12/2020 08/16/2020 Overview: [place] until vasectomy Rh negative state in antepartum period 0 08/16/2020 Supervision of other normal 11/26/2019 08/16/2020 History of loop electrosurgi mynor excision procedure (LEEP) of cervix affecting , antepartum 11/26/2019 08/16/2020 Overview: No issues with cervical length last . Labor and delivery, indication for care 02/18/20 17 04/11/2017 Rh negative state in antepartum period 7 04/11/2017 Hx LEEP (loop electrosurgica l excision procedure), cervix, 08/14/2016 04/11/2017 First 07/17/2016 04/11/2017 documented as of this encounter (statuses as of 03/19/2023) [facility] of Past illness Narrative* Problem Noted Date Diagnosed Date Resolved Date Normal labor and delivery 11/22/2022 Normal labor 11/21/2022 01/17/2023 care of multigravida, antepartum 06/21/2022 01/17/2023 Rh negative state in antepartum period 06/21/2022 01/17/2023 Normal labor 06/27/2020 06/27/2020 care following vaginal delivery 06/27/2020 08/16/2020 First degree perineal lacera tion during delivery 06/27/2020 08/16/2020 At risk for difficulty 06/27/2020 08/16/2020 General counseling and advic e for contraceptive management 05/12/2020 08/16/2020 Overview: [place] until vasectomy Rh negative state in antepartum period 12/23/2019 08/16/2020 Supervision of other normal 11/26/2019 08/16/2020 History of loop electrosurgi mynor excision procedure (LEEP) of cervix affecting , antepartum 11/26/2019 08/16/2020 Overview: No issues with cervical length last . Labor and delivery, indication for care 02/17/2017 04/11/2017 Rh negative state in antepartum period 10/09/2016 04/11/2017 Hx LEEP (loop electrosurgica l excision procedure), cervix, 08/14/2016 04/11/2017 First 07/17/2016 04/11/2017 documented as of this encounter (statuses as of 12/08/2023) [facility]02-23-2023 History of Past illness Narrative* Problem Noted Date Diagnosed Date Resolved Date Normal labor and delivery 11/22/2022 Normal labor 11/21/2022 01/17/2023 care of multigravida, antepartum 06/21/2022 01/17/2023 Rh negative state in antepartum period 06/21/2022 01/17/2023 Normal labor 06/27/2020 06/27/2020 care following vaginal delivery 06/27/2020 08/16/2020 First degree perineal lacera tion during delivery 06/27/2020 08/16/2020 At risk for difficulty 06/27/2020 08/16/2020 General counseling and advic e for contraceptive management 05/12/2020 08/16/2020 Overview: Minipill until vasectomy Rh negative state in antepartum period 12/23/2019 08/16/2020 Supervision of other normal 11/26/2019 08/16/2020 History of loop electrosurgi mynor excision procedure (LEEP) of cervix affecting , antepartum 11/26/2019 08/16/2020 Overview: No issues with cervical length last . Labor and delivery, indication for care 02/17/2017 04/11/2017 Rh negative state in antepartum period 10/09/2016 04/11/2017 Hx LEEP (loop electrosurgica l excision procedure), cervix, 08/14/2016 04/11/2017 First 07/17/2016 04/11/2017 documented as of this encounter (statuses as of 12/17/2023) [facility]02-23-2023 NoteHNO ID: [id number] Author: Olivia Mac MD Service: Obstetrics Author Type: Resident Type: Progress Notes Filed: 11/22/2022 12:33 AM Note Text: OBSTETRICS INTRAPARTUM PROGRESS NOTE SERVICE DATE: November 22, 2022 SERVICE TIME: 12:30 AM S: comfortable with epidural, feeling intermittent rectal pressure O: 11/21/22 2315 11/21/22 2335 11/21/22 2350 11/22/22 0005 BP: 113/63 126/62 129/64 128/68 Pulse: 105 101 112 108 Resp: 18 16 16 16 Temp: TempSrc: SpO2: 95% 96% 95% 97% Weight: Height: Oxytocin Infusion - If collapsed, click to expand (last 4 hours) None MONITORING/ASSESSMENT: Baseline: 155 bpm (11/22/22 0000 : Judith Tesfaye RN) Variability: Moderate (6-25 bpm) (11/22/22 0000 : Judith Tesfaye RN) Accelerations: Present (11/22/22 0000 : Judith Tesfaye RN) Decelerations: Decelerations: (!) Variable (11/22/22 0000 : Judith Tesfaye RN), Decel Frequency: Intermittent (11/22/22 0000 : Judith Tesfaye RN) Contractions: Irregular (11/22/22 0000 : Judith Tesfaye RN) Frequency: 1-5 (11/22/22 0000 : Judith Tesfaye RN) 11/21/22210911/22/22 0021 Dilation: 4 6 Effacement (%): 80 90 Station: -2 Presentation: Vertex A/P: Anne Last is a 32 year old at 40w3d here for labor. Cx: 6/90/0 Membranes: SROM 0000 Contractions: q1-5 FWB: Category II FHT GBS neg EFW: 8.5 lb Augmentation/induction agent: None, continue expectant management. Patient with prolonged deceleration after SROM. FSE applied. FHR improved with position changes. 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 Reason for block: labor epidural Staffing Anesthesiologist: Anat Joseph MD CAA: STEVE Moore Performed by: CECE Preparation Sterility Preparation: hand hygiene performed prior to procedure, sterile gloves, drapes, and procedure tray, surgical cap used, mask used, sterile drape used during line insertion, skin prep agent completely dried prior to procedure Site Prep: Betadine Procedure Details Patient position: sitting Patient monitoring: Pulse OX and NIBP Approach: midline Injection technique: JEANETH saline Region: lumbar Estimated Interspace: 3-4 Number of Attempts: 1 Needle and Epidural Catheter Needle type: CloudX Needle gauge: 17G Needle length: 3.5 in Needle insertion depth: 3.5 cm Catheter Catheter type: end hole Catheter size: 19 G Catheter at skin depth: 10 cmTest Dose Response: negative Assessment Sensory level: lumbar Beginning Pain Score: 7/10 Pain Score After Treatment: 1/10 Events: tolerated well without discomfort Comments 1% lidocaine skin localization. Negative CSF, heme, paresthesias. SIGNATURE: Anat Joseph MD PATIENT NAME: Anne Last DATE: November 21, 2022 TIME: 10:31 PM CSN: [id number] NoteHNO ID: [id number] Author: Amaris Crockett RN Service: Obstetrics Author Type: Registered Nurse Type: Procedures Filed: 11/21/2022 9:40 PM Note Text: Attestation signed by Navin Zamudio MD at 11/22/2022 2:43 AM NST SUMMARY PROVIDER ASSESSMENT AND INTERPRETATION Anne Last is a 32 year old female, , who is at 40w3d with an BALBINA of 11/19/2022, by Last Menstrual Period dating method. Indications for NST: Other: Labor Baseline: 130 Variability: Moderate Accelerations: Present 15 X 15 Decelerations: None Contractions: TOCO: Every 2-4 minutes Interpretation: Category I SIGNATURE: Navin Zamudio MD OBSTETRICS NST SUMMARY SERVICE DATE: November 21, 2022 The patient is a 32 year old female, , who is at 40w2d with an BALBINA of 11/19/2022, by Last Menstrual Period dating method. NST OBJECTIVE FINDINGS PER NURSE: Start Time: 2100 (11/21/222099 : Amaris Crockett RN) Complete Time: 2129 (11/21/222129 : Amaris Crockett RN) Indications: Other: Comment (r/o labor) (11/21/222099 : Amaris Crockett RN) Patient Reason For: NST Explanation: Procedure Explained;Monitor Explained;Verbalizes Understanding (11/21/222099 : Amaris Crockett RN) Acoustic Stimulator: No (11/21/222129 : Amaris Crockett RN) Interventions: MONITORING/ASSESSMENT: Baseline: 160 bpm (11/21/222129 : Amaris Crockett RN) Variability: Moderate (6-25 bpm) (11/21/222129 : Amaris Crockett RN) Accelerations: Present (11/21/222129 : Amaris Crockett RN) Decelerations: Decelerations: (!) Variable (11/21/222129 : Amaris Crockett RN) Contractions: Regular (11/21/222129 : Amaris Crockett RN) Frequency: 2-4 (11/21/222129 : Amaris Crockett RN) Above information forwarded to (11/21/222129 : Amaris Crockett RN) for final review and interpretation. SIGNATURE: Amaris Crockett RN PATIENT NAME: Anne Last DATE: November 21, 2022 TIME: 9:40 [facility]02-21-2023 History and physical note* Denver Catalan MD - 11/20/2022 2:35 PM EST OBSTETRICS HISTORY AND PHYSICAL NAME: Anne Last SERVICE DATE: November 20, 2022 SERVICE TIME: 1430 ASSESSMENT & PLAN: 32 year old EGA:40w1d. Plan for delivery in <30 days. IOl scheduled 41 weeks POST DELIVERY CONTRACEPTION: Discussed post-delivery contraception options. Patient received written information about post-delivery contraception options. Patient does not desire post-delivery contraception. SUBJECTIVE: CHIEF COMPLAINT: Scheduled Induction of labor for Late Term (41w0d through 41w6d) HISTORY OF THE PRESENT ILLNESS: The patient is a 32 year old female, , who is at 40w1d with an BALBINA of 11/19/2022, by Last Menstrual Period dating method. Patient has Good movement. Deniesvaginal bleeding., C/O of occasional contractions., Denies leaking of fluid. . Patient is GBS Negative. 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 Medical OB history reviewed- SS Name of Baby 1: Not recorded Date: 12/15/08 GA: Not recorded Delivery: Not recorded Apgar1: Not recorded Apgar5: Not recorded Living: Not recorded Name of Baby 2: Benjy last Date: 02/18/17 GA: 41w0d Delivery: Vaginal, Spontaneous Apgar1: 9 Apgar5: 9 Living: Living Name of Baby 3: JOSE ROBERTO LAST Date: 06/27/20 GA: 39w3d Delivery: Vaginal, Spontaneous Apgar1: 8 Apgar5: 9 Living: Living Name of Baby 4: Not recorded Date: Not recorded GA: Not recorded Delivery: Not recorded Apgar1: Not recorded Apgar5: Not recorded Living: Not recorded ALLERGIES: ALLERGIES No Known Allergies PRIOR TO ADMISSION MEDICATIONS: Prior to Admission medications as of 11/20/22 1342 Medication Sig Last Dose Taking famotidine (PEPCID) 20 mg tablet Take 1 tablet by mouth twice daily. Taking Yes Breast Pump Use as directed Taking Yes vit no.124/iron/folic ( VITAMIN ORAL) Take by mouth. Taking Yes hydrocortisone (ANUSOL-HC) 25 mg suppository 1 Suppository by RECTAL route twice daily. No medication comments found. REVIEW OF SYSTEMS: GI: No nausea, vomiting, or diarrhea and Positive for hemorrhoid pain The remainder of the review of systems is negative. OBJECTIVE: PHYSICAL EXAM: General: WD, WN HEENT: NC/AT, sclera white, pupils equal Lungs: normal respiratory effort Heart: RR Abdomen: soft, nontender, no masses Uterus: soft, NT Extremities: tr edema DTRs: Pelvimetry: Pelvimetry clinically assessed as adequate LAST VITALS: BP 122/80 Pulse 96 Ht 5' 2 (1.575 m) Wt 182 lb (82.6 kg) LMP 02/12/2022 BMI33.29 kg/m Heart Rate: 135 LABS Diagnostic tests reviewed for today's visit: Most recent labs and imaging results. Maternal Results (In Last 9 Months): Hemoglobin (g/dL) Date/Time Value 09/21/20222027 12.9 08/27/2022 1626 11.4 (L) 05/18/2022 1657 13.2 Hematocrit (%) Date/Time Value 09/21/20222027 37.8 08/27/2022 1626 34.0 (L) 05/18/2022 1657 38.5 Platelet Count (k/uL) Date/Time Value 09/21/20222027 195 08/27/2022 1626 249 05/18/2022 1657 270 ABO (no units) Date/Time Value 08/27/2022 1626 A Rh(D) (no units) Date/Time Value 08/27/2022 1626 Negative SARS-CoV-2 (Agent of COVID-19) (no units) Date/Time Value 09/21/20222027 SARS-CoV-2 (Agent of COVID-19) Not Detected by RT-PCR or equivalent method. Group B Strep PCR (no units) Date/Time Value 10/25/2022 1132 Negative for Group B Streptococcus by PCR. HBsAg (no units) Date/Time Value 05/18/2022 1657 Negative Hep C Antibody IA (no units) Date/Time Value 05/18/2022 1657 Negative HIV 12 Combo (Ag/Ab) (no units) Date/Time Value 05/18/2022 1657 Nonreactive GC Amplification (no units) Date/Time Value 04/19/2022 1311 Negative for Neisseria gonorrhoeae by amplification Chlamydia Amplification (no units) Date/Time Value 04/19/2022 1311 Negative for Chlamydia trachomatis by amplification Syphilis Total Screen (no units) Date/Time Value 08/27/2022 1626 Nonreactive Glucose Scrn, Preg (mg/dL) Date/Time Value 08/27/2022 1626 131 Delivery Plan: Induction Order completed and includes: Open Standing Orders None Induction Order Details Expected Ordered INDUCTION L&D [[id number]] 11/26/22 11/15/22 Auth. provider: Denver Catalan MD Q: Procedure Location:: A: [facility]thing Center Q: Requested Time:: A: 8:00 AM Q: Primary Reason for Induction:: A: Post-term (after 41 0/7 weeks) Q: Tier:: A: Tier 1 Q: Clinical Pelvimetry:: A: Yes - Assessed as adequate Q: Cervical Ripening Planned?: A: Yes Q: EFW:: A: 8.5lbs Q: GA at Scheduled Delivery Date:: A: > or equal to 39 weeks Q: MFM Advising Delivery:: A: N/A Electronic Informed Consent completed: Yes SIGNATURE: Denver Catalan MD DATE: November 20, 2022 TIME: 2:35 PM documented in [facility]Day[facility]23 Miscellaneous Notes* Quick Notes - Denver Catalan MD - 11/20/2022 2:35 PM EST GFM. Nst reactive. Having most discomfort from hemorrhoids now. Declines exam. Using cream without relief. Rx for anusol supp sent. Reviewed IOL instructions, covid test. Reviewed lisha to call for documented in this encounterDay[facility]02-[facility]-2023 History of Present illness Narrative* Denver Catalan MD - 11/20/2022 2:34 PM EST NST SUMMARY PROVIDER ASSESSMENT AND INTERPRETATION Anne Last is a 32 year old female, , who is at 40w1d with an BALBINA of 11/19/2022, by Last Menstrual Period dating method. Indications for NST: Postdates/Postterm Baseline: 135 Variability: Moderate Accelerations: Present 15 X 15 Decelerations: None Contractions: TOCO: None Interpretation: Reactive SIGNATURE: Denver Catalan MD documented in this encounterDay[facility] Center02-21-2023 Instructions* Patient Instructions* Denver Catalan MD - 11/20/2022 1:49 PM EST Images from the original note were not included. DROP OFF COVID TEST 11/24. PRESENT TO [address] [place] [address] 11/26 AT 6 AM INDUCTION OF LABOR INSTRUCTIONS Labor induction is the stimulation of uterine contractions before labor begins on its own. Labor induction occurs for many reasons, primarily when there is concern for maternal or health. There are several ways to start your induction of labor. It will depend on your health providers recommendation and if your cervix is ready for labor. CERVICAL RIPENING The goal of cervical ripening is to soften and thin your cervix and get it ready for labor. MISOPROSTOL or miso - It is a small pill form of medication. It may be placed in the vagina or in the mouth to soften the cervix. This medication may need to be given several times. CERVICAL RIPENING BALLOON- In some cases, a small tube (catheter) with an inflatable balloon on theend is also used. It is inserted into the cervix and then the balloon is filled with fluid. The filled balloon puts pressure on the cervix, to slowly open your cervix. The balloon falls out once yourcervix has opened to approximately 4 centimeters or it will be removed after 12 hours. You may feelcramping or pressure when the balloon is placed. This is often used with misoprostol to dilate yourcervix LABOR INDUCTION PITOCIN- Pitocin is like oxytocin, the hormone in your body that initiates labor contractions. Thismedication is given through an IV and will make your contractions stronger and closer together. Thedose may be increased or decreased based on your labor progression. AMNIOTOMY- Breaking your water . A small opening is made in the amniotic sac with a plastic hook. You may feel a warm gush of fluid as your water breaks. It is not usually painful. This is often donewhen your cervix is dilated and thinned and the head is low in the pelvis. Amniotomy is not necessary in all inductions of labor. Often a person s water may break on its own. WHAT TO EXPECT Inductions are scheduled by your obstetric provider with the hospital. You will be told a specific day and time to arrive at the hospital. Check in at the test desk trouble locator of the Birthing Center/Labor and Delivery department. Induction of labor may take several hours or days in some cases. Be prepared for the possibility that your induction may be a long process. Occasionally, due to emergencies or hospital census, your induction may be delayed or rescheduled. You will receive a phone call from the hospital if this is necessary. We try our very best to accommodate all patients with safety and efficiency in mind, but as a result, there can be last minute changes. Please have patience with us if this occurs. We suggest eating prior to coming in for your induction as you may be limited to clear liquids onceyour induction starts. Discuss with your provider any other specific instructions including reviewing which medications should be taken on the day of induction. Pack lightly and leave valuables at home. Bring personal comfort items as needed, items needed to take the baby home, including your s car seat. You may bring items for distraction, such as music, cards, movies, and streaming applications. TV and WI-FI is available CAREGIVERS At the [facility], we value a team approach to care. You will meet a variety of caregivers responsible for ensuring a safe delivery. Unfortunately, this may not include your primary provider. This team may include an attending physician specializing in inpatient obstetric management,certified nurse midwives, physician assistants, resident physicians and medical students. Our goal is to work together to provide you with a safe, efficient and pleasant experience. COVID-19 PANDEMIC Due to the pandemic, visitor restrictions are in place to keep our moms and babies safe. The [facility] visitor policy is constantly reviewed to reflect the current state of the pandemic. Covid 19 policies may be viewed here: Patients & Visitors [facility] [place] ( support professionals) are also allowed with certain documentation. All patients are tested for Covid-19 prior to scheduled admission. This will be arranged by your provider. Patients arriving at the hospital in spontaneous labor will be tested at the time of admission to the hospital. All support persons will be screened for Covid symptoms when you present to the hospital. If they have symptoms, you will be asked to find an alternate support person. All patients and visitors are asked to wear a mask upon entering a [facility] facility. If you do not have a mask, one will be provided for you. Please check the hospital website for current policies, parking and other information that may be helpful during your stay. [place] link: [facility] [place] link: [facility] Special delivery link: [facility] Special Delivery Unit documented in this encounterDay[facility] Center02-09-2023 Miscellaneous Notes* Quick Notes - Denver Catalan MD - 11/08/2022 11:07 AM EST GFM. No sig ctx, vb, lof. Feels fine. Routine labor precautions. documented in this encounterDayton [facility] Medical Center02-09-2023 Nurse Note* Layne Dillard Ma - 11/08/2022 10:55 AM EST Risk Control Manager offered: Patient declines. documented in this encounterDayton [facility] Center01-31-2023 Miscellaneous Notes* Quick Notes - Denver Catalan MD - 10/30/2022 11:05 AM EST Virtual Visit: This is a virtual visit using MyChart video visit. It required patient-provider interaction for themedical decision making as documented below. GFM. Reviewed lisha. GBS neg. Has a cold. Reviewed otc meds Plan: Follow-up in 1 weeks via office Signature: Denver Catalan MD Date: October 30, 2022 Time: 11:06 AM documented in this encounterDayton [facility] Medical Center01-26-2023 Miscellaneous Notes* Quick Notes - Denver Catalan MD - 10/25/2022 11:29 AM EST GFM. Reviewed lisha. Gbs done. Disc poss IOL and she would like to wait as long as she can. documented in this encounterDayton [facility] Center01-26-2023 Nurse Note* Layne Dillard Ma - 10/25/2022 11:09 AM EST Risk Control Manager offered: Patient declines. documented in this encounterDayton [facility] Center12-29-2022 Miscellaneous Notes* Quick Notes - Denver Catalan MD - 09/27/2022 1:06 PM EST Virtual Visit: This is a virtual visit using Anaergiahart video visit. It required patient-provider interaction for themedical decision making as documented below. GFM. Denies ptl sx. Was at hospital for abd pain last week. Nl eval and resolved. Has reflux. Reviewed ways to manage. No issues with iron. Last cbc normal Plan: Follow-up in 2 weeks via vv Signature: Denver Catalan MD Date: September 27, 2022 Time: 1:06 PM documented in this encounterDayton [facility] Center12-23-2022 NoteCOVID 19 RESULT: SARS-CoV-2 (Agent of COVID-19) Not Detected by RT-PCR or equivalent method. This test has been authorized by FDA under an Emergency Use Authorization (EUA). INFLUENZA A PCR: Negative for Influenza A by RT-PCR INFLUENZA B PCR: Negative for Influenza B by RT-PCR RSV PCR: Negative for Respiratory Syncytial Virus (RSV) by PCRCalais Regional HospitalComment on above:Performed By: #### [id number] #### [facility] CLIA [id number] [address] [place], [place] [address]12-19-2022 Miscellaneous Notes* Telephone Encounter - Sophy Watt RN - 09/17/2022 2:16 PM EST Outgoing call placed to pt. Pt verified by name and . Reviewed Dr. Catalan message in detail. Pt verbalizes understanding. No further questions at this time. Sophy Watt RN * Telephone Encounter - Denver Catalan MD - 09/17/2022 1:14 PM EST She should just check her bp and fhr and send me through my chart then * Telephone Encounter - Dilcia Noble RN - 09/17/2022 11:[address] to patient who was identified by name and . Patient reports was out of town and forgot VV equipment. Patient also forgot about appt. Denies OB concerns and reports good FM. Is unable to be seen this week due to holidays. Patient wants to make sure it is ok with Dr. Catlaan if could just be seen as scheduled 09/27/2022. Message forwarded to Dr. Catalan for review Dilcia Noble RN * Telephone Encounter - Dilcia Noble RN - 09/13/2022 10:00 AM EST Call placed to patient who is 30.3wga. LVM for patient to call [phone], push option 3 to speakto a nurse. Dilcia Noble RN * Telephone Encounter - James Frank - 09/13/2022 8:35 AM EST Patient no showed for her ob virtual visit with Dang today at 7:00. documented in this encounterDayton [facility] Medical Center11-16-2022 Miscellaneous Notes* Quick Notes - Vika Weaver APRN.CNM - 08/15/2022 6:57 AM EST Virtual Visit: This is a virtual visit using [email or web address] video visit. It required patient-provider interaction for themedical decision making as documented below. S: Feeling well, occasional BH ctx, 4-5 a day, has some hemorrhoids. +FM, no vaginal bleeding. Has had blind spots in her vision twice in the last 3 weeks, no headaches associated. O: BP 106/64 LMP 02/12/2022 A / P: Anne was seen today for care. Diagnoses and all orders for this visit: 26 weeks gestation of - GEST GLUC SCREEN, 1-HR, 50 GM, NON-FASTING; Future - CBC; Future - SYPHILIS TOTAL W/REFLEX; Future - TYPE + SCREEN ; Future Rh negative state in antepartum period - TYPE + SCREEN ; Future Plan: if vision changes get worse or associated with headache she should contact Dr. Catalan, stay hydrated. Reviewed self help for hemorrhoids-prep H is helping and avoid constipation. Reviewed signs of PTL. Discussed labs and timing of lab work, she will need rhophylac at 28 weeks. Tdap at [place]. Signature: Vika Weaver APRN.CNM Date: August 15, 2022 Time: 6:58 AM documented in this encounterDayton [facility] Medical Center10-20-2022 Miscellaneous Notes* Quick Notes - Denver Catalan MD - 07/19/2022 11:11 AM EDT +FM. Reviewed ultrasound. Has intermittent n/v and heartburn. VV next time. documented in this [facility]09-22-2022 Miscellaneous Notes* Quick Notes - Denver Catalan MD - 06/21/2022 3:44 PM EDT +Flutters. Feels better now. Disc and ordered afp. Had declined other testing. Has anatomy scan scheduled. Flu shot today documented in this [facility]09-22-2022 Nurse Note* Layne Dillard Ma - 06/21/2022 3:01 PM EDT Risk Control Manager offered: Patient declines. documented in this encounterDayton [facility] Medical Center08-26-2022 Miscellaneous Notes* Quick Notes - Kaye Dumont APRN.CNP - 05/25/2022 10:54 AM EDT Pt doing well, nausea getting better. Concerned about blood sugars getting too low at times, discussed eating small, frequent meals to keep levels stable. Anatomy US ordered. Kaye Dumont APRN.KAIAKO KURA TUARUA documented in this encounterDayton Va Medical Center07-21-2022 History of Present illness Narrative* Denver Catalan MD - 04/19/2022 1:18 PM EDT See imaging tab for POC ultrasound report. Denver Catalan documented in this encounterDayton Va Medical [facility] History of Present illness Narrative* Denver Catalan MD - 04/19/2022 1:04 PM EDT INITIAL OB ASSESSMENT OB Provider: Denver Catalan MD HPI: Anne Last is a 31 year old female here to establish Obstetrical Care. Patient's last menstrual period was 02/12/2022. from OB Dating Form. She was off the pill for one month and got . This wasn't planned but they are happy. Complaints: nausea without vomiting. OB History T2 L2 SAB1 IAB0 Ectopic0 Multiple0 Live Births2 Comment: Pt. Medical OB history reviewed- SS Prior : never History of 4th degree laceration: No Patient's Risk Screening for delivery: Have you had a prior deal between 20w and 36w6d?: No History of abnormal pap: No Prior treatment for cervical dysplasia: none. History of STDs: None Tobacco use: No Drug use: No Alcohol use: No Multivitamin with Folic acid: Yes PAST MEDICAL HISTORY Diagnosis Date Abnormal Pap smear of cervix First degree perineal laceration during delivery 06/27/2020 H/O LEEP 2009 Rh incompatibility PAST SURGICAL HISTORY Procedure Laterality Date LEEP PROCEDURE (SHEAR SETTER DEPT)_*FL 2008 PAST SURGICAL HISTORY OF 2000 left wrist No current outpatient medications on file prior to visit. No current facility-administered medications on file prior to visit. Review of Systems: GENERAL: negative HEENT: Negative for: Headache NECK: Negative for: Swelling, Pain, Stiffness RESPIRATORY: Negative for: Cough, Shortness of breath, Wheezing GASTROINTESTINAL: nausea MUSCULOSKELETAL: Negative for: Muscle or joint pain, stiffness, Joint swelling NEUROLOGIC/PSYCHIATRIC: Negative for: Weakness, Paralysis, Numbness, Tingling, Tremor, Anxiety, Depression, Memory loss SKIN: Negative for: Rash, Itching GENITOURINARY: Negative for: vaginal itching, vaginal discharge, hematuria or dysuria PHYSICAL EXAM: BP 110/78 Pulse 80 Ht 5' 2 (1.58m) Wt 154 lb (69.9kg) LMP 02/12/2022 BMI 28.16 kg/(m^2). GENERAL: pleasant female in no apparent distress DERMATOLOGY: Normal, without lesions, non-icteric and non-hirsute NECK: Supple, full range of motion, no adenopathy and thyroid normal CHEST: Normal inspiratory effort BREAST: soft, non-tender, symmetric, no dominant mass, normal nipple-areolar complex, no lymphadenopathy and no nipple discharge ABDOMEN: soft, non-tender and no masses NEURO: exam grossly non-focal PELVIS: External genitalia normal without lesions. Perineal body intact. No vaginal or cervical lesions. Cervix closed. Uterus 10 week size. No adnexal masses or tenderness. Clinical Pelvimetry: Pelvimetry clinically assessed as adequate Limited OB ultrasound exam: single intrauterine OB Risk Screening: Completed, no positive findings documented. ASSESSMENT: 31 year old at 9.3 wks gestational age PLAN: 1) Patient oriented to practice. Discussed nutrition, folic acid supplementation, dietary guidelines, exercise, smoking, alcohol, caffeine, and drug use. Discussed routine OB labs including STD/HIV. Discussed aneuploidy screening options including serum screening and nuchal translucency. Patient declines all aneuploidy screening. 2) Desires VV 3) preg skin care technician ordered Follow up in 4 weeks or sooner prn. Denver Catalan MD [facility] Inst[facility]* Patient Instructions* Denver Catalan MD - 04/19/2022 1:04 PM EDT Please select the following link to access the [facility] Your Guide to a Healthy . [email or web address] documented in this encounterDay[facility]07[facility]22 Nurse Note* Layne Neely 04/19/2022 12:43 PM EDT Risk Control Manager offered: Patient declines. documented in this encounterDay[facility]06-06-2022 Instructions* Patient Instructions* Beni Patel APRN.KAIAKO KURA TUARUA - 03/05/2022 8:25 AM EDT [facility] PATIENT INFO ACUTE SINUSITIS OVERVIEW Rhinosinusitis, or more commonly sinusitis, is the medical term for inflammation (swelling) of the lining of the sinuses and nose. The sinuses are the hollow areas within the facial bones that are connected to the nasal openings. The sinuses are lined with mucous membranes, similar to the inside ofthe nose. There are two main types of sinusitis: acute and chronic. Acute sinusitis is inflammation that lasts for less than four weeks while chronic sinusitis lasts for more than 12 weeks. Acute sinusitis is common, affecting approximately one million people per year in the [place]. ACUTE SINUSITIS CAUSES The most common cause of acute sinusitis is a viral infection associated with the common cold. Bacterial sinusitis occurs much less commonly, in only 0.5 to 2 percent of cases, usually as a complication of viral sinusitis. Because antibiotics are effective only against bacterial, and not viral, infections, most people donot need antibiotics for acute sinusitis. ACUTE SINUSITIS SYMPTOMS Symptoms of acute sinusitis include: Nasal congestion or blockage Thick, yellow to green discharge from the nose Pain in the teeth Pain or pressure in the face that is worse when bending forwards Other acute sinusitis symptoms can include fever (temperature greater than 100.4 F or 38 C), fatigue, cough, difficulty or inability to smell, ear pressure or fullness, headache, and bad breath. In most cases, these symptoms develop over the course of one day and begin to improve within seven to 10 days. DO I NEED TO BE EXAMINED? It is difficult to know if you have a viral or bacterial sinus infection initially. However, most people with a viral infection improve without treatment within seven to 10 days after symptoms begin.Bacterial sinusitis also sometimes improves without treatment, although it can also worsen and require treatment. If one or more of the following bothersome symptoms last more than seven days, an examination by a healthcare provider is recommended: Thick, yellow to green discharge from the nose Face or tooth pain, especially if it is only on one side Tenderness over the maxillary sinuses (located on the left and right side of the nose, inside the cheekbones) Symptoms that initially improve and then worsen When to seek immediate help If you have one or more of the following symptoms, you should seek medical attention immediately (even if symptoms have been present for less than seven days): High fever (>102.5 F or 39.2 C) Sudden, severe pain in the face or head Double vision or difficulty seeing Confusion or difficulty thinking clearly Swelling or redness around one or both eyes Stiff neck, shortness of breath ACUTE SINUSITIS TREATMENT Initial treatment of a sinus infection aims to relieve symptoms since almost everyone will improve within the first seven to 10 days. Experts recommend avoiding antibiotics during this time unless there is clear evidence of a severe bacterial infection. Initial treatment Pain relief Non-prescription pain medications, such as acetaminophen (eg, Tylenol ) or ibuprofen (eg, Motrin , Advil ) are recommended for pain. Nasal irrigation and saline sprays Rinsing the nose with a salt-water (saline) solution is called nasal irrigation or nasal lavage. Saline is also available in a standard nasal spray, although this is not as effective as using larger amounts of water in an irrigation. Nasal irrigation is particularly useful for treating drainage down the back of the throat, sneezing, nasal dryness, and congestion. The treatment helps by rinsing out allergens and irritants from thenose. Saline rinses also clean the nasal lining and can be used before applying sprays containing medications, to get a better effect from the medication. Nasal lavage with warmed saline can be performed as needed, once per day, or twice daily for increased symptoms. Nasal lavage carries few risks when performed correctly. Saline nasal sprays and irrigation kits can be purchased [id number]. Saline mixes can also be purchased or patients can make their own solution. A variety of devices, including bulb syringes, Neti pots, and bottle sprayers, may be used to perform nasal lavage; instructions for nasal lavage are provided in the table. At least 200 mL (about 3/4cup) of fluid is recommended for each nostril. Nasal decongestants Nasal decongestant sprays, including oxymetazoline (Afrin ) and phenylephrine (Kenneth-synephrine ) can be used to temporarily treat congestion. However, these sprays should not be used for more than two to three days due to the risk of rebound congestion (when the nose is congestedconstantly unless the medication is used repeatedly). Other treatments Other treatments for congestion, such as oral antihistamines (such as diphenhydramine/Benadryl ) or zinc supplements are not proven to improve symptoms of sinusitis and can have unwanted side effects. Medications to thin secretions (such as guaifenesin) may help to clear mucus. Secondline treatment If symptoms have not improved in seven to ten days, you should arrange for medical evaluation. You may need further treatment. Nasal glucocorticoids Nasal glucocorticoids (steroids delivered by a nasal spray) can help to reduce swelling inside the nose, usually within two to three days. These drugs have few side effects and dramatically relieve symptoms in most people. There are a number of nasal glucocorticoids available by prescription. These drugs are all effective, but differ in how frequently they must be used and how much they cost. You may need to use a nasal decongestant for a few days before starting a nasal glucocorticoid to reduce nasal swelling; this will allow the nasal glucocorticoid to reach more areas of the nasal passages Do I need an antibiotic? If bothersome symptoms of sinusitis persist for 10 or more days, it is possible that you have bacterial sinusitis. The need for antibiotics depends upon the severity of your symptoms. Mild symptoms There are two possible treatment options if you have mild sinusitis symptoms: treat with antibiotics or continue to watch and wait for one week. Watching and waiting is a reasonable option because up to 75 percent of people with bacterial sinusitis improve within one month without antibiotics. During the watch and wait period, treatments to improve symptoms are recommended. If symptoms worsen or do not improve after watching and waiting, treatment with an antibiotic is usually recommended. Treatments to relieve symptoms are recommended while using antibiotics. Moderate or severe symptoms Most healthcare providers will prescribe an antibiotic for moderate to severe symptoms (temperature >38.3 C or 101 F and/or severe pain that interferes with usual activities). Treatments to relieve symptoms are also recommended during antibiotic treatment. One of the least expensive and most effective antibiotics for sinusitis is amoxicillin. An alternate antibiotic will be prescribed if you are allergic to penicillin. Regardless of which antibiotic isprescribed, it is important to follow the dosing instructions carefully and to finish the entire course of treatment. Taking the medication less often than prescribed or stopping the medication earlycan lead to complications, such as a recurrent infection. What if I do not improve with treatment? If you do not improve or worsen after a course of antibiotics, you should be re-examined. In some cases, symptoms of sinusitis improve but then recur. This is usually because the infection was not completely eliminated by the antibiotic. An alternate antibiotic, extended antibiotic treatment, and/or further testing may be recommended, depending upon your individual situation. documented in this encounterDay[facility]06-[facility]-2022 History of Present illness Narrative* Beni Patel APRN.CNP - 03/05/2022 8:07 AM EDT Subjective HPI Nontoxic-appearing female presents urgent care chief complaint sore throat nasal congestion. Duration of symptoms 2 weeks. Associated symptoms sore throat nasal congestion cough. Patient states initially sore throat dissipated returned again 2 weeks ago. States other family members are sick with similar signs and symptoms. Denies any significant pain currently. Increased pain with swallowing. Hastried OTC medications these have not helped. Denies any recent COVID-19 exposures she is vaccinated. Denies any fever productive cough chest pain shortness of breath pleuritic pain hemoptysis nausea vomiting abdominal pain change in bowel or bladder habits. Past medical history prescription medication use allergies reviewed. Denies use decreased range of motion difficulty swallowing difficulty handling secretions. .Patient presents with: Sore Throat: cough, head congestion x2 weeks PAST MEDICAL HISTORY Diagnosis Date Abnormal Pap smear of cervix First degree perineal laceration during delivery 06/27/2020 H/O LEEP 2009 Rh incompatibility PAST SURGICAL HISTORY Procedure Laterality Date LEEP PROCEDURE (SHEAR SETTER DEPT)_*FL 2008 PAST SURGICAL HISTORY OF 1999 left wrist ALLERGIES Patient has no known allergies. MEDICATIONS norethindrone-e.estradiol-iron (MINASTRIN 24 FE) 1 mg-20 mcg(24) /75 mg (4) Take 1 tablet by mouth once daily. FAMILY HISTORY Problem Relation Age of Onset Diabetes Paternal Grandfather Social History Tobacco Use Smoking status: Never Smoker Smokeless tobacco: Never Used Vaping Use Vaping Use: Never used Substance Use Topics Alcohol use: Yes Comment: occ Drug use: No BP 122/80 Pulse 114 Temp 36.8 C (98.2 F) Resp 20 Wt 73.3 kg (161 lb 9.6 oz) LMP 10/09/2020 SpO2 98% BMI 29.56 kg/m Hr 95 Review of Systems Constitutional: Negative for chills, fever and malaise/fatigue. HENT: Positive for congestion, sinus pain and sore throat. Negative for ear discharge and ear pain. Eyes: Negative for blurred vision, pain, discharge and redness. Respiratory: Positive for cough. Negative for hemoptysis, sputum production, shortness of breath, wheezing and stridor. Cardiovascular: Negative for chest pain. Gastrointestinal: Negative for abdominal pain, diarrhea, nausea and vomiting. Musculoskeletal: Negative for myalgias. Skin: Negative for itching and rash. Neurological: Negative for dizziness and headaches. Objective Physical Exam Vitals and nursing note reviewed. Constitutional: General: She is not in acute distress. Appearance: She is not diaphoretic. HENT: Head: Normocephalic and atraumatic. Jaw: No trismus, tenderness, swelling or pain on movement. Right Ear: Hearing, tympanic membrane, ear canal and external ear normal. No decreased hearing noted. No drainage, swelling or tenderness. No mastoid tenderness. Tympanic membrane is not perforated, erythematous or bulging. Left Ear: Hearing, tympanic membrane, ear canal and external ear normal. No decreased hearing noted. No drainage, swelling or tenderness. No mastoid tenderness. Tympanic membrane is not perforated, erythematous or bulging. Nose: Congestion present. Right Sinus: Maxillary sinus tenderness present. Left Sinus: Maxillary sinus tenderness present. Mouth/Throat: Lips: [place]. Mouth: Mucous membranes are moist. Pharynx: Oropharynx is clear. Uvula midline. Posterior oropharyngeal erythema present. No pharyngeal swelling, oropharyngeal exudate or uvula swelling. Tonsils: No tonsillar exudate or tonsillar abscesses. Eyes: General: Right eye: No discharge. Left eye: No discharge. Conjunctiva/sclera: Conjunctivae normal. Pupils: Pupils are equal, round, and reactive to light. Cardiovascular: Rate and Rhythm: Normal rate and regular rhythm. Heart sounds: Normal heart sounds. Pulmonary: Effort: Pulmonary effort is normal. No tachypnea, accessory muscle usage or respiratory distress. Breath sounds: Normal breath sounds. No stridor. No wheezing, rhonchi or rales. Abdominal: Palpations: Abdomen is soft. Tenderness: There is no abdominal tenderness. Musculoskeletal: General: No tenderness. Normal range of motion. Cervical back: Normal range of motion and neck supple. No rigidity or tenderness. Lymphadenopathy: Head: Right side of head: No submental, submandibular, tonsillar, preauricular, posterior auricular or occipital adenopathy. Left side of head: No submental, submandibular, tonsillar, preauricular, posterior auricular or occipital adenopathy. Cervical: No cervical adenopathy. Right cervical: No superficial or posterior cervical adenopathy. Left cervical: No superficial or posterior cervical adenopathy. Skin: General: Skin is warm and dry. Findings: No rash. Neurological: Mental Status: She is alert and oriented to person, place, and time. ASSESSMENT/PLAN: 1. Pharyngitis, unspecified etiology - ICD9: 462, ICD10: J02.9 (primary diagnosis) - STREP A MOLECULAR (POC) 2. Acute sinusitis, recurrence not specified, unspecified location - ICD9: 461.9, ICD10: J01.90 Strep test negative. With patient's duration of symptoms increasing sinus pressure patient will be placed on Augmentin. Follow-up with PCP 2 to 3 days for reevaluation. Patient was educated on supportive therapies. Patient was instructed to immediately proceed to emergency room for any new, worsening, or symptoms lasting longer than anticipated. The patient's clinical presentation is otherwise unremarkable at this time. Based on exam and clinical finding, the patient is stable for discharge. Plan of care was discussed with patient. Patient verbalizes understanding and agrees to plan of care. This note was generated using [employer] software. It may contain errors in wording, punctuation, or spelling. Beni Patel APRN.JAMAL documented in this encounterDay[facility]03-28-2022 Instructions* Patient Instructions* Jose Joseph APRN.CNP - 12/25/2021 11:40 AM EDT 1. Take antibiotics until they are complete. 2. OTC flonase 1 spray to each nostril at bed, mucinex, plenty of rest and hydration. You can also try cold air humidifier, warm shower, nasal saline rinse for congestion. documented in this encounterDay[facility] Center03-28-2022 History of Present illness Narrative* Jose Joseph APRN.CNP - 12/25/2021 11:22 AM EDT VIRTUAL VISIT PROGRESS NOTE This is a virtual visit using [email or web address] video visit. It required patient-provider interaction for themedical decision making as documented below. Anne Last is a 31 year old female seen for possible sinus infection. Her daughter who is in daycare got sick 2 weeks ago, then her son got ill a few days later, and now Anne. She thinks her symptoms started about 8-10 days ago. She is having sinus pressure under and around her eyes, MONTEZ, pain to teeth. Denies fever/chills. Denies cough, wheezing. Has pressure to ears. Denies PND. She has a productive, thick, green, sinus mucus. Tried OTC day-quil, tylenol cold, ibuprofen. Nothing has gotten better. She thinks it hasn't gotten worse since she's been taking medications around the clock. 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 mv-mn/iron fum/FA/omega3,6,9#3 (WOMEN'S MULTI ORAL) Take by mouth. No current facility-administered medications for this visit. ALLERGIES No Known Allergies REVIEW OF SYSTEMS: GENERAL: no recent change in weight, no fever, admits to fatigue HEENT: no sore throat, She does have sinus pressure around eyes, MONTEZ, eye pressure. She will get mildly dizzy when blowing nose. NECK: denies swelling or pain in neck RESPIRATORY: no cough, no wheezing or shortness of breath CARDIOVASCULAR: no chest pain, no palpitations NEURO: no numbness or paresthesias and no weakness of the extremities PHYSICAL EXAMINATION: VIDEO EXAM: (if completed, performed via video enabled technology) GENERAL: alert and appropriate, in no distress, well-hydrated, well nourished and appears tired HEAD: normocephalic, no abnormality or lesion noted. Maxillary TTP. EYES: no injection and visual acuity is grossly normal RESPIRATORY: breathing non-labored ASSESSMENT/PLAN: 1. Acute rhinosinusitis - ICD9: 461.9, ICD10: J01.90 - Will begin treatment with Augmentin 875 mg PO BID for 5 days - Supportive care with plenty of fluids, rest, and analgesia prn. - OTC mucinex and flonase. Jose Joseph APRN.JAMAL I spent a total of 15 minutes on the date of the service which included [id number] patient care, completing clinical documentation and counseling and educating the patient/family/caregiver Jose Joseph APRN.JAMAL documented in this encounterDay[facility] Center09-28-2020 History of Past illness Narrative* Problem Noted Date Resolved Date Normal labor 06/27/2020 06/27/2020 care following vaginal delivery 06/2708/16/2020 First degree perineal laceration during delivery 06/27/2020 08/16/2020 At risk for difficulty 06/27/2020 08/16/2020 General counseling and advice for contraceptive management 05/12/2020 08/16/2020 Overview: [place] until vasectomy Rh negative state in antepartum period 0 08/16/2020 Supervision of other normal 11/26/2019 08/16/2020 History of loop electrosurgi mynor excision procedure (LEEP) of cervix affecting , antepartum 11/26/2019 08/16/2020 Overview: No issues with cervical length last . Labor and delivery, indication for care 02/18/20 17 04/11/2017 Rh negative state in antepartum period 7 04/11/2017 Hx LEEP (loop electrosurgica l excision procedure), cervix, 08/14/2016 04/11/2017 First 07/17/2016 04/11/2017 documented as of this encounter (statuses as of 12/25/2021) [facility] of Past illness Narrative* Problem Noted Date Resolved Date Normal labor 06/27/2020 06/27/2020 care following vaginal delivery 06/2708/16/2020 First degree perineal laceration during delivery 06/27/2020 08/16/2020 At risk for difficulty 06/27/2020 08/16/2020 General counseling and advice for contraceptive management 05/12/2020 08/16/2020 Overview: [place] until vasectomy Rh negative state in antepartum period 0 08/16/2020 Supervision of other normal 11/26/2019 08/16/2020 History of loop electrosurgi mynor excision procedure (LEEP) of cervix affecting , antepartum 11/26/2019 08/16/2020 Overview: No issues with cervical length last . Labor and delivery, indication for care 02/18/20 17 04/11/2017 Rh negative state in antepartum period 7 04/11/2017 Hx LEEP (loop electrosurgica l excision procedure), cervix, 08/14/2016 04/11/2017 First 07/17/2016 04/11/2017 documented as of this encounter (statuses as of 03/05/2022) [facility] of [facility] illness Narrative* Problem Noted Date Resolved Date Normal labor 06/27/2020 06/27/2020 care following vaginal delivery 06/2708/16/2020 First degree perineal laceration during delivery 06/27/2020 08/16/2020 At risk for difficulty 06/27/2020 08/16/2020 General counseling and advice for contraceptive management 05/12/2020 08/16/2020 Overview: [place] until vasectomy Rh negative state in antepartum period 0 08/16/2020 Supervision of other normal 11/26/2019 08/16/2020 History of loop electrosurgi mynor excision procedure (LEEP) of cervix affecting , antepartum 11/26/2019 08/16/2020 Overview: No issues with cervical length last . Labor and delivery, indication for care 02/18/20 17 04/11/2017 Rh negative state in antepartum period 7 04/11/2017 Hx LEEP (loop electrosurgica l excision procedure), cervix, 08/14/2016 04/11/2017 First 07/17/2016 04/11/2017 documented as of this encounter (statuses as of 04/19/2022) [facility] of [facility] illness Narrative* Problem Noted Date Resolved Date Normal labor 06/27/2020 06/27/2020 care following vaginal delivery 06/2708/16/2020 First degree perineal laceration during delivery 06/27/2020 08/16/2020 At risk for difficulty 06/27/2020 08/16/2020 General counseling and advice for contraceptive management 05/12/2020 08/16/2020 Overview: [place] until vasectomy Rh negative state in antepartum period 0 08/16/2020 Supervision of other normal 11/26/2019 08/16/2020 History of loop electrosurgi mynor excision procedure (LEEP) of cervix affecting , antepartum 11/26/2019 08/16/2020 Overview: No issues with cervical length last . Labor and delivery, indication for care 02/18/20 17 04/11/2017 Rh negative state in antepartum period 7 04/11/2017 Hx LEEP (loop electrosurgica l excision procedure), cervix, 08/14/2016 04/11/2017 First 07/17/2016 04/11/2017 documented as of this encounter (statuses as of 04/19/2022) [facility] History of Past illness Narrative* Problem Noted Date Resolved Date Normal labor 06/27/2020 06/27/2020 care following vaginal delivery 06/2708/16/2020 First degree perineal laceration during delivery 06/27/2020 08/16/2020 At risk for difficulty 06/27/2020 08/16/2020 General counseling and advice for contraceptive management 05/12/2020 08/16/2020 Overview: [place] until vasectomy Rh negative state in antepartum period 0 08/16/2020 Supervision of other normal 11/26/2019 08/16/2020 History of loop electrosurgi mynor excision procedure (LEEP) of cervix affecting , antepartum 11/26/2019 08/16/2020 Overview: No issues with cervical length last . Labor and delivery, indication for care 02/18/20 17 04/11/2017 Rh negative state in antepartum period 7 04/11/2017 Hx LEEP (loop electrosurgica l excision procedure), cervix, 08/14/2016 04/11/2017 First 07/17/2016 04/11/2017 documented as of this encounter (statuses as of 05/25/2022) [facility] History of Past illness Narrative* Problem Noted Date Resolved Date Normal labor 06/27/2020 06/27/2020 care following vaginal delivery 06/2708/16/2020 First degree perineal laceration during delivery 06/27/2020 08/16/2020 At risk for difficulty 06/27/2020 08/16/2020 General counseling and advice for contraceptive management 05/12/2020 08/16/2020 Overview: [place] until vasectomy Rh negative state in antepartum period 0 08/16/2020 Supervision of other normal 11/26/2019 08/16/2020 History of loop electrosurgi mynor excision procedure (LEEP) of cervix affecting , antepartum 11/26/2019 08/16/2020 Overview: No issues with cervical length last . Labor and delivery, indication for care 02/18/20 17 04/11/2017 Rh negative state in antepartum period 7 04/11/2017 Hx LEEP (loop electrosurgica l excision procedure), cervix, 08/14/2016 04/11/2017 First 07/17/2016 04/11/2017 documented as of this encounter (statuses as of 05/29/2022) [facility] History of Past illness Narrative* Problem Noted Date Resolved Date Normal labor 06/27/2020 06/27/2020 care following vaginal delivery 06/2708/16/2020 First degree perineal laceration during delivery 06/27/2020 08/16/2020 At risk for difficulty 06/27/2020 08/16/2020 General counseling and advice for contraceptive management 05/12/2020 08/16/2020 Overview: [place] until vasectomy Rh negative state in antepartum period 0 08/16/2020 Supervision of other normal 11/26/2019 08/16/2020 History of loop electrosurgi mynor excision procedure (LEEP) of cervix affecting , antepartum 11/26/2019 08/16/2020 Overview: No issues with cervical length last . Labor and delivery, indication for care 02/18/20 17 04/11/2017 Rh negative state in antepartum period 7 04/11/2017 Hx LEEP (loop electrosurgica l excision procedure), cervix, 08/14/2016 04/11/2017 First 07/17/2016 04/11/2017 documented as of this encounter (statuses as of 06/21/2022) [facility] History of Past illness Narrative* Problem Noted Date Resolved Date Normal labor 06/27/2020 06/27/2020 care following vaginal delivery 06/2708/16/2020 First degree perineal laceration during delivery 06/27/2020 08/16/2020 At risk for difficulty 06/27/2020 08/16/2020 General counseling and advice for contraceptive management 05/12/2020 08/16/2020 Overview: [place] until vasectomy Rh negative state in antepartum period 0 08/16/2020 Supervision of other normal 11/26/2019 08/16/2020 History of loop electrosurgi mynor excision procedure (LEEP) of cervix affecting , antepartum 11/26/2019 08/16/2020 Overview: No issues with cervical length last . Labor and delivery, indication for care 02/18/20 17 04/11/2017 Rh negative state in antepartum period 7 04/11/2017 Hx LEEP (loop electrosurgica l excision procedure), cervix, 08/14/2016 04/11/2017 First 07/17/2016 04/11/2017 documented as of this encounter (statuses as of 07/19/2022) [facility] History of Past illness Narrative* Problem Noted Date Resolved Date Normal labor 06/27/2020 06/27/2020 care following vaginal delivery 06/2708/16/2020 First degree perineal laceration during delivery 06/27/2020 08/16/2020 At risk for difficulty 06/27/2020 08/16/2020 General counseling and advice for contraceptive management 05/12/2020 08/16/2020 Overview: [place] until vasectomy Rh negative state in antepartum period 0 08/16/2020 Supervision of other normal 11/26/2019 08/16/2020 History of loop electrosurgi mynor excision procedure (LEEP) of cervix affecting , antepartum 11/26/2019 08/16/2020 Overview: No issues with cervical length last . Labor and delivery, indication for care 02/18/20 17 04/11/2017 Rh negative state in antepartum period 7 04/11/2017 Hx LEEP (loop electrosurgica l excision procedure), cervix, 08/14/2016 04/11/2017 First 07/17/2016 04/11/2017 documented as of this encounter (statuses as of 08/15/2022) [facility] History of Past illness Narrative* Problem Noted Date Resolved Date Normal labor 06/27/2020 06/27/2020 care following vaginal delivery 06/2708/16/2020 First degree perineal laceration during delivery 06/27/2020 08/16/2020 At risk for difficulty 06/27/2020 08/16/2020 General counseling and advice for contraceptive management 05/12/2020 08/16/2020 Overview: [place] until vasectomy Rh negative state in antepartum period 0 08/16/2020 Supervision of other normal 11/26/2019 08/16/2020 History of loop electrosurgi mynor excision procedure (LEEP) of cervix affecting , antepartum 11/26/2019 08/16/2020 Overview: No issues with cervical length last . Labor and delivery, indication for care 02/18/20 17 04/11/2017 Rh negative state in antepartum period 7 04/11/2017 Hx LEEP (loop electrosurgica l excision procedure), cervix, 08/14/2016 04/11/2017 First 07/17/2016 04/11/2017 documented as of this encounter (statuses as of 09/17/2022) [facility] History of Past illness Narrative* Problem Noted Date Resolved Date Normal labor 06/27/2020 06/27/2020 care following vaginal delivery 06/2708/16/2020 First degree perineal laceration during delivery 06/27/2020 08/16/2020 At risk for difficulty 06/27/2020 08/16/2020 General counseling and advice for contraceptive management 05/12/2020 08/16/2020 Overview: [place] until vasectomy Rh negative state in antepartum period 0 08/16/2020 Supervision of other normal 11/26/2019 08/16/2020 History of loop electrosurgi mynor excision procedure (LEEP) of cervix affecting , antepartum 11/26/2019 08/16/2020 Overview: No issues with cervical length last . Labor and delivery, indication for care 02/18/20 17 04/11/2017 Rh negative state in antepartum period 7 04/11/2017 Hx LEEP (loop electrosurgica l excision procedure), cervix, 08/14/2016 04/11/2017 First 07/17/2016 04/11/2017 documented as of this encounter (statuses as of 09/18/2022) [facility] History of Past illness Narrative* Problem Noted Date Resolved Date Normal labor 06/27/2020 06/27/2020 care following vaginal delivery 06/2708/16/2020 First degree perineal laceration during delivery 06/27/2020 08/16/2020 At risk for difficulty 06/27/2020 08/16/2020 General counseling and advice for contraceptive management 05/12/2020 08/16/2020 Overview: [place] until vasectomy Rh negative state in antepartum period 0 08/16/2020 Supervision of other normal 11/26/2019 08/16/2020 History of loop electrosurgi mynor excision procedure (LEEP) of cervix affecting , antepartum 11/26/2019 08/16/2020 Overview: No issues with cervical length last . Labor and delivery, indication for care 02/18/20 17 04/11/2017 Rh negative state in antepartum period 7 04/11/2017 Hx LEEP (loop electrosurgica l excision procedure), cervix, 08/14/2016 04/11/2017 First 07/17/2016 04/11/2017 documented as of this encounter (statuses as of 10/03/2022) [facility] History of Past illness Narrative* Problem Noted Date Resolved Date Normal labor 06/27/2020 06/27/2020 care following vaginal delivery 06/2708/16/2020 First degree perineal laceration during delivery 06/27/2020 08/16/2020 At risk for difficulty 06/27/2020 08/16/2020 General counseling and advice for contraceptive management 05/12/2020 08/16/2020 Overview: [place] until vasectomy Rh negative state in antepartum period 0 08/16/2020 Supervision of other normal 11/26/2019 08/16/2020 History of loop electrosurgi mynor excision procedure (LEEP) of cervix affecting , antepartum 11/26/2019 08/16/2020 Overview: No issues with cervical length last . Labor and delivery, indication for care 02/18/20 17 04/11/2017 Rh negative state in antepartum period 7 04/11/2017 Hx LEEP (loop electrosurgica l excision procedure), cervix, 08/14/2016 04/11/2017 First 07/17/2016 04/11/2017 documented as of this encounter (statuses as of 10/25/2022) [facility] History of Past illness Narrative* Problem Noted Date Resolved Date Normal labor 06/27/2020 06/27/2020 care following vaginal delivery 06/2708/16/2020 First degree perineal laceration during delivery 06/27/2020 08/16/2020 At risk for difficulty 06/27/2020 08/16/2020 General counseling and advice for contraceptive management 05/12/2020 08/16/2020 Overview: [place] until vasectomy Rh negative state in antepartum period 0 08/16/2020 Supervision of other normal 11/26/2019 08/16/2020 History of loop electrosurgi mynor excision procedure (LEEP) of cervix affecting , antepartum 11/26/2019 08/16/2020 Overview: No issues with cervical length last . Labor and delivery, indication for care 02/18/20 17 04/11/2017 Rh negative state in antepartum period 7 04/11/2017 Hx LEEP (loop electrosurgica l excision procedure), cervix, 08/14/2016 04/11/2017 First 07/17/2016 04/11/2017 documented as of this encounter (statuses as of 10/29/2022) [facility] History of Past illness Narrative* Problem Noted Date Resolved Date Normal labor 06/27/2020 06/27/2020 care following vaginal delivery 06/2708/16/2020 First degree perineal laceration during delivery 06/27/2020 08/16/2020 At risk for difficulty 06/27/2020 08/16/2020 General counseling and advice for contraceptive management 05/12/2020 08/16/2020 Overview: [place] until vasectomy Rh negative state in antepartum period 0 08/16/2020 Supervision of other normal 11/26/2019 08/16/2020 History of loop electrosurgi mynor excision procedure (LEEP) of cervix affecting , antepartum 11/26/2019 08/16/2020 Overview: No issues with cervical length last . Labor and delivery, indication for care 02/18/20 17 04/11/2017 Rh negative state in antepartum period 7 04/11/2017 Hx LEEP (loop electrosurgica l excision procedure), cervix, 08/14/2016 04/11/2017 First 07/17/2016 04/11/2017 documented as of this encounter (statuses as of 10/30/2022) [facility] History of Past illness Narrative* Problem Noted Date Resolved Date Normal labor 06/27/2020 06/27/2020 care following vaginal delivery 06/2708/16/2020 First degree perineal laceration during delivery 06/27/2020 08/16/2020 At risk for difficulty 06/27/2020 08/16/2020 General counseling and advice for contraceptive management 05/12/2020 08/16/2020 Overview: [place] until vasectomy Rh negative state in antepartum period 0 08/16/2020 Supervision of other normal 11/26/2019 08/16/2020 History of loop electrosurgi mynor excision procedure (LEEP) of cervix affecting , antepartum 11/26/2019 08/16/2020 Overview: No issues with cervical length last . Labor and delivery, indication for care 02/18/20 17 04/11/2017 Rh negative state in antepartum period 7 04/11/2017 Hx LEEP (loop electrosurgica l excision procedure), cervix, 08/14/2016 04/11/2017 First 07/17/2016 04/11/2017 documented as of this encounter (statuses as of 11/08/2022) [facility] History of Past illness Narrative* Problem Noted Date Resolved Date Normal labor 06/27/2020 06/27/2020 care following vaginal delivery 06/2708/16/2020 First degree perineal laceration during delivery 06/27/2020 08/16/2020 At risk for difficulty 06/27/2020 08/16/2020 General counseling and advice for contraceptive management 05/12/2020 08/16/2020 Overview: [place] until vasectomy Rh negative state in antepartum period 0 08/16/2020 Supervision of other normal 11/26/2019 08/16/2020 History of loop electrosurgi mynor excision procedure (LEEP) of cervix affecting , antepartum 11/26/2019 08/16/2020 Overview: No issues with cervical length last . Labor and delivery, indication for care 02/18/2004/11/2017 Rh negative state in antepartum period 7 04/11/2017 Hx LEEP (loop electrosurgica l excision procedure), cervix, 08/14/2016 04/11/2017 First 07/17/2016 04/11/2017 documented as of this encounter (statuses as of 11/16/2022) [facility] History of Past illness Narrative* Problem Noted Date Resolved Date Normal labor 06/27/2020 06/27/2020 care following vaginal delivery 06/2708/16/2020 First degree perineal laceration during delivery 06/27/2020 08/16/2020 At risk for difficulty 06/27/2020 08/16/2020 General counseling and advice for contraceptive management 05/12/2020 08/16/2020 Overview: [place] until vasectomy Rh negative state in antepartum period 0 08/16/2020 Supervision of other normal 11/26/2019 08/16/2020 History of loop electrosurgi mynor excision procedure (LEEP) of cervix affecting , antepartum 11/26/2019 08/16/2020 Overview: No issues with cervical length last . Labor and delivery, indication for care 02/18/20 17 04/11/2017 Rh negative state in antepartum period 7 04/11/2017 Hx LEEP (loop electrosurgica l excision procedure), cervix, 08/14/2016 04/11/2017 First 07/17/2016 04/11/2017 documented as of this encounter (statuses as of 11/20/2022) [facility] History of Past illness Narrative* Problem Noted Date Resolved Date Normal labor 06/27/2020 06/27/2020 care following vaginal delivery 06/2708/16/2020 First degree perineal laceration during delivery 06/27/2020 08/16/2020 At risk for difficulty 06/27/2020 08/16/2020 General counseling and advice for contraceptive management 05/12/2020 08/16/2020 Overview: [place] until vasectomy Rh negative state in antepartum period 0 08/16/2020 Supervision of other normal 11/26/2019 08/16/2020 History of loop electrosurgi mynor excision procedure (LEEP) of cervix affecting , antepartum 11/26/2019 08/16/2020 Overview: No issues with cervical length last . Labor and delivery, indication for care 02/18/20 17 04/11/2017 Rh negative state in antepartum period 7 04/11/2017 Hx LEEP (loop electrosurgica l excision procedure), cervix, 08/14/2016 04/11/2017 First 07/17/2016 04/11/2017 documented as of this encounter (statuses as of 12/07/2022) [facility] Diagnosis Acute rhinosinusitis- Primary Acute sinusitis, unspecified [facility] Diagnosis Pharyngitis, unspecified etiology- Primary Acute sinusitis, recurrence not specified, unspecified location [facility] Diagnosis Encounter for supervision of normal in multigravida- Primary with inconclusive viability, single or unspecified fetus care, subsequent , first trimester 9 weeks gestation of state, incidental [facility] Diagnosis with inconclusive viability, single or unspecified fetus- Primary [facility] Diagnosis care, subsequent in second trimester- Primary 14 weeks gestation of state, incidental [facility] Diagnosis care, subsequent , second trimester- Primary 18 weeks gestation of state, incidental Need for influenza vaccination Need for prophylactic vaccination and inoculation against influenza care of multigravida, antepartum Rh negative state in antepartum period Rhesus isoimmunization affecting management of mother, antepartum condition [facility] Diagnosis care, subsequent , second trimester- Primary 22 weeks gestation of state, incidental [facility] Diagnosis 26 weeks gestation of - Primary state, incidental Rh negative state in antepartum period Rhesus isoimmunization affecting management of mother, antepartum condition [facility]* Diagnosis care, subsequent , third trimester- Primary 32 weeks gestation of state, incidental [facility] [place] [facility] Diagnosis care, subsequent , third trimester- Primary 36 weeks gestation of state, incidental screening for streptococcus B screening for Streptococcus B documented [facility]* Diagnosis care, subsequent , third trimester- Primary 37 weeks gestation of state, incidental [facility] Diagnosis care, subsequent , third trimester- Primary 38 weeks gestation of state, incidental [facility] Diagnosis 40 weeks gestation of - Primary state, incidental care, subsequent in third trimester [facility] Diagnosis Encounter for routine follow-up- Primary Routine follow-up (spontaneous vaginal delivery) Normal delivery [facility] Diagnosis care and examination- Primary Routine follow-up documented [facility]* Diagnosis anxiety- Primary Mental disorders of mother, depression Mental disorders of mother, documented [facility]* Diagnosis Acute non-recurrent pansinusitis- Primary [facility] Diagnosis Encounter for gynecological examination (general) (routine) without abnormal findings- Primary Cervical cancer screening Screening for malignant neoplasm of the cervix Generalized anxiety disorder documented in this encounter [facility] for referral (narrative)* Diagnostic Procedure Only (Routine) - Pending Review Specialty Diagnoses / Procedures Referred By Caren doss Referred To Contact [facility] Diagnoses care, subsequent in second trimester 14 weeks gestation of Procedures OBSTETRIC ULTRASOUND WHI US PREG UTERUS AFTER 1ST TRIMEST GESTATION Kaye Dumont APRN.CNP [address] [facility], [address] [place] [address] [facility] [address] [place] [address] Referral ID Status Reason Start Date Expiration Date Visits Requested Visits Authorized [id number] Pending Review Auto-Generat ed Referral 05/25/2022 05/25/2023 1 1 [facility] Summary Purpose Family History No Family History Records Found Relationship Condition Age at Onset Recorded Date/T macrina mother Hypertension Unknown Autoimmune disease Unknown grandfather Malignant neoplasm of lung Unknown grandfather Malignant neoplasm of prostate Unknown Diabetes mellitus Unknown Advance Directives No Advanced Directives Records FoundDocuments on File Type Date Recorded Patient Civil Rights Attorney Expl anation Advance Directive(s) 06/27/2020 8:43 AM Health Concerns Problem Noted Date OB Reminders 04/19/2022 Problem Noted Date OB Reminders 04/19/2022 Problem Noted Date OB Reminders 04/19/2022 Problem Noted Date OB Reminders 04/19/2022 Problem Noted Date OB Reminders 04/19/2022 Problem Noted Date OB Reminders 04/19/2022 Problem Noted Date OB Reminders 04/19/2022 Problem Noted Date OB Reminders 04/19/2022 Problem Noted Date OB Reminders 04/19/2022 Problem Noted Date OB Reminders 04/19/2022 Problem Noted Date OB Reminders 04/19/2022 Problem Noted Date OB Reminders 04/19/2022 Problem Noted Date 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 Problem Noted Date 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 Problem Noted Date 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 Problem Noted Date 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 Chief Complaint and Reason for Visit Chief Complaint Admit Date BUE; BILAT WRIST PAIN October 27, 2024 6:57am BUE; BILAT WRIST PAIN October 27, 2024 8:25am Booked from other vendor December 23 9:15am Reason for Visit Admit Date Anxiety and depression December 23, 2024 9:15am Encounter to establish care December 23, 2024 9:15am Preventative health care December 23 9:15am Additional Source Comments INFORMATION SOURCE (unrecogn ized section and content) DATE CREATED AUTHOR 07/25/2020 [employer] DATE CREATED AUTHOR AUTHOR'S ORGANIZ ATION 09/23/2022 [facility] DATE CREATED AUTHOR AUTHOR'S ORGANIZ ATION 11/24/2022 [facility] DATE CREATED AUTHOR AUTHOR'S ORGANIZ ATION 03/29/2024 [facility] DATE CREATED AUTHOR AUTHOR'S ORGANIZ ATION 03/21/2025 [facility] Source Comments (unrecognize d section and content) In the event this informatio n is protected by the Federal Confidentiality of Alcohol and Drug Abuse Patient Records regulations: The Federal rules restrict any use of the information to criminally investigate or prosecute any alcohol or drug abuse patient.[facility] the event this information is protected by the Federal Confidentiality of Alcohol and Drug Abuse Patient Records regulations: The Federal rules restrict any use of the information to criminally investigate or prosecute any alcohol or drug abuse patient.[facility] the event this information is protected by the Federal Confidentiality of Alcohol and Drug Abuse Patient Records regulations: The Federal rules restrict any use of the information to criminally investigate or prosecute any alcohol or drug abuse patient.[facility] the event this information is protected by the Federal Confidentiality of Alcohol and Drug Abuse Patient Records regulations: The Federal rules restrict any use of the information to criminally investigate or prosecute any alcohol or drug abuse patient.[facility] Center[facility] the event this information is protected by the Federal Confidentiality of Alcohol and Drug Abuse Patient Records regulations: The Federal rules restrict any use of the information to criminally investigate or prosecute any alcohol or drug abuse patient.[facility] Center[facility] the event this information is protected by the Federal Confidentiality of Alcohol and Drug Abuse Patient Records regulations: The Federal rules restrict any use of the information to criminally investigate or prosecute any alcohol or drug abuse patient.[facility] Center[facility] the event this information is protected by the Federal Confidentiality of Alcohol and Drug Abuse Patient Records regulations: The Federal rules restrict any use of the information to criminally investigate or prosecute any alcohol or drug abuse patient.[facility] Center[facility] the event this information is protected by the Federal Confidentiality of Alcohol and Drug Abuse Patient Records regulations: The Federal rules restrict any use of the information to criminally investigate or prosecute any alcohol or drug abuse patient.[facility] CenterIn the event this information is protected by the Federal Confidentiality of Alcohol and Drug Abuse Patient Records regulations: The Federal rules restrict any use of the information to criminally investigate or prosecute any alcohol or drug abuse patient.[facility] Center[facility] the event this information is protected by the Federal Confidentiality of Alcohol and Drug Abuse Patient Records regulations: The Federal rules restrict any use of the information to criminally investigate or prosecute any alcohol or drug abuse patient.[facility] CenterIn the event this information is protected by the Federal Confidentiality of Alcohol and Drug Abuse Patient Records regulations: The Federal rules restrict any use of the information to criminally investigate or prosecute any alcohol or drug abuse patient.[facility] CenterIn the event this information is protected by the Federal Confidentiality of Alcohol and Drug Abuse Patient Records regulations: The Federal rules restrict any use of the information to criminally investigate or prosecute any alcohol or drug abuse patient.[facility] CenterIn the event this information is protected by the Federal Confidentiality of Alcohol and Drug Abuse Patient Records regulations: The Federal rules restrict any use of the information to criminally investigate or prosecute any alcohol or drug abuse patient.[facility] CenterIn the event this information is protected by the Federal Confidentiality of Alcohol and Drug Abuse Patient Records regulations: The Federal rules restrict any use of the information to criminally investigate or prosecute any alcohol or drug abuse patient.[facility] CenterIn the event this information is protected by the Federal Confidentiality of Alcohol and Drug Abuse Patient Records regulations: The Federal rules restrict any use of the information to criminally investigate or prosecute any alcohol or drug abuse patient.[facility] CenterIn the event this information is protected by the Federal Confidentiality of Alcohol and Drug Abuse Patient Records regulations: The Federal rules restrict any use of the information to criminally investigate or prosecute any alcohol or drug abuse patient.[facility] CenterIn the event this information is protected by the Federal Confidentiality of Alcohol and Drug Abuse Patient Records regulations: The Federal rules restrict any use of the information to criminally investigate or prosecute any alcohol or drug abuse patient.[facility] CenterIn the event this information is protected by the Federal Confidentiality of Alcohol and Drug Abuse Patient Records regulations: The Federal rules restrict any use of the information to criminally investigate or prosecute any alcohol or drug abuse patient.[facility] CenterIn the event this information is protected by the Federal Confidentiality of Alcohol and Drug Abuse Patient Records regulations: The Federal rules restrict any use of the information to criminally investigate or prosecute any alcohol or drug abuse patient.[facility] CenterIn the event this information is protected by the Federal Confidentiality of Alcohol and Drug Abuse Patient Records regulations: The Federal rules restrict any use of the information to criminally investigate or prosecute any alcohol or drug abuse patient.[facility] CenterIn the event this information is protected by the Federal Confidentiality of Alcohol and Drug Abuse Patient Records regulations: The Federal rules restrict any use of the information to criminally investigate or prosecute any alcohol or drug abuse patient.[facility] CenterIn the event this information is protected by the Federal Confidentiality of Alcohol and Drug Abuse Patient Records regulations: The Federal rules restrict any use of the information to criminally investigate or prosecute any alcohol or drug abuse patient.[facility] CenterIn the event this information is protected by the Federal Confidentiality of Alcohol and Drug Abuse Patient Records regulations: The Federal rules restrict any use of the information to criminally investigate or prosecute any alcohol or drug abuse patient.[facility] CenterIn the event this information is protected by the Federal Confidentiality of Alcohol and Drug Abuse Patient Records regulations: The Federal rules restrict any use of the information to criminally investigate or prosecute any alcohol or drug abuse patient.[facility] CenterIn the event this information is protected by the Federal Confidentiality of Alcohol and Drug Abuse Patient Records regulations: The Federal rules restrict any use of the information to criminally investigate or prosecute any alcohol or drug abuse patient.[facility] CenterIn the event this information is protected by the Federal Confidentiality of Alcohol and Drug Abuse Patient Records regulations: The Federal rules restrict any use of the information to criminally investigate or prosecute any alcohol or drug abuse patient.[facility] CenterIn the event this information is protected by the Federal Confidentiality of Alcohol and Drug Abuse Patient Records regulations: The Federal rules restrict any use of the information to criminally investigate or prosecute any alcohol or drug abuse patient.[facility] CenterIn the event this information is protected by the Federal Confidentiality of Alcohol and Drug Abuse Patient Records regulations: The Federal rules restrict any use of the information to criminally investigate or prosecute any alcohol or drug abuse patient.[facility] CenterIn the event this information is protected by the Federal Confidentiality of Alcohol and Drug Abuse Patient Records regulations: The Federal rules restrict any use of the information to criminally investigate or prosecute any alcohol or drug abuse patient.[facility] CenterIn the event this information is protected by the Federal Confidentiality of Alcohol and Drug Abuse Patient Records regulations: The Federal rules restrict any use of the information to criminally investigate or prosecute any alcohol or drug abuse patient.[facility] Reason for Visit (unrecogniz ed section and content) Reason Comments Sinus Problem Reason Comments Sore Throat cough, head congesti on x2 weeks Reason Comments Care First OB visit -- LM P 02/12/22 --- 07/2020 pap & hpv NEG Reason Comments US Reason Comments Care Reason Onset Date Comments Care Immunizations 06/21/2022 Flu vaccination Reason Comments Care Reason Comments Nurse Triage Call Reason Comments Care Nst (Non Stress Test) Specialty Diagnoses / Procedures Referred By Contac t Referred To Contact [facility] Diagnoses care, subsequent , third trimester Procedures NON-STRESS TEST [place] [address] [place] [address] [facility] [address] [place] [address] Referral ID Status Reason Start Date Expiration Date V isits Requested Visits Authorized [id number] Closed Auto-Generate d Referral 11/15/2022 11/15/2023 1 1 Reason Comments Early Reason Comments Care Delivered 11/22/22 mn ginal -- 07/2020 pap & hpv NEG Reason Comments Anxiety Reason Comments Refill Request Reason Comments Sinusitis Has had her symptoms for 2 weeks. Believes she has a sinus infection. Reason Comments Yearly Exam 07/2020 pap & hpv NE G Care Teams (unrecognized sec tion and content) Team Status: Active Member Role Status Dates Dr. Jimmy Mandujano MD Primary Care Provider Active Team Status: Inactive Member Role Status Dates Dr. Kenny Washburn DO Attending Provider Active Start: October 27, 2024 End: October 27, 2024 Dr. Kenny Washburn DO Referring Provider Active Start: October 27, 2024 End: October 27, 2024 Dr. Jimmy Mandujano MD Primary Care Provider Active Start: October 27, 2024 End: October 27, 2024 Team Status: Active Member Role Status Dates Dr. Kenny Washburn DO Referring Provider Active Start: October 27, 2024 Dr. Kenny Washburn DO Other Provider Active Start: October 27, 2024 Dr. Jimmy Mandujano MD Primary Care Provider Active Start: October 27, 2024 Dr. Krissy Jackson MD Attending Provider Active Start: October 27, 2024 Team Status: Inactive Member Role Status Dates Dr. Jimmy Mandujano MD Primary Care Provider Active Start: December 23, 2024 End: December 23, 2024 Dr. Jimmy Mandujano MD Attending Provider Active Start: December 23, 2024 End: December 23, 2024 Dr. Jimmy Mandujano MD Referring Provider Active Start: December 23, 2024 End: December 23, 2024 Team Status: Active Member Role Status Dates Dr. Jimmy Mandujano MD Primary Care Provider Active Start: December 23, 2024 Health Risk Assessment Attending Provider Active Start: December 23, 2024 Health Risk Assessment Referring Provider Active Start: December 23, 2024 Team Status: Inactive Member Role Status Dates Dr. Jimmy Mandujano MD Primary Care Provider Active Start: February 04, 2025 End: February 04, 2025 Dr. Kenny Washburn DO Attending Provider Active Start: February 04, 2025 End: February 04, 2025 Dr. Kenny Washburn DO Referring Provider Active Start: February 04, 2025 End: February 04, 2025 Goals (unrecognized section and content) Goals may be documented in a n alternate section FOR RECORDS PERTAINING TO PATIENTS WHO ARE OR HAVE BEEN ENROLLED IN A CHEMICAL DEPENDENCY/SUBSTANCEABUSE PROGRAM, SOME INFORMATION MAY BE OMITTED. This clinical summary was aggregated from multiple sources. Caution should be exercised in using it in the provision of clinical care. This summary normalizes information from multiple sources, and as a consequence, information in this document may materially change the coding, format and clinical context of patient data. In addition, data may be omitted in some cases. CLINICAL DECISIONS SHOULD BE BASED ON THE PRIMARY CLINICAL RECORDS. [employer] provides no warranty or guarantee of the accuracy or completeness of information in this document.
[2025-03-25 06:14] LABS: Internal QC Validated? YES +Cl - CLEAR BKGD; Pregnancy, Urine Negative Negative
[2025-03-25] MEDS: Lactated Ringers 1,000 ML 15 ML IV (06:33)
--- NOTE | 2025-03-25 06:46 | PRE.ANES_ITS ---
ASA Classification* ASA Classification ASA Classification: 2 Assessment & Plan Anesthesia* Anesthesia Assessment Anesthesia Assessment: Discussed sedation and/or anesthesia options, risks, benefits, and alternatives with patient/parents/legal guardian/POA. Questions invited. The patient/parents/legal guardian/POA seems to understand and agrees to proceed with anesthesia plan. Reviewed the physical assessment, medical history, allergy history and patient home medications list prior to surgery/procedure/anesthetic and documented any changes. Performed airway and anesthesia risk assessments. Anesthesia Type Anesthesia Type: General History Source History Obtained from:: Patient and Chart Anesthesia Focused Assessment* Temperature: 98.2 F Pulse Rate: 94 Blood Pressure: 120/86 Respiratory Rate: 16 Pulse Ox: 98 Oxygen Delivery Method: Room Air Airway Assessment Mouth opens: >3 cm Mallampati Score: II Teeth Condition: Intact Neck Range of motion (ROM): Full ROM Labs Anesthesia Preop lab: CBC WBC 8.9 K/mm3 (4.4-11.0) 03/18/25 13:23 03/18/25 RBC 5.03 M/mm3 (4.2-5.4) 03/18/25 13:23 03/18/25 Hgb 14.2 g/dL (12.0-15.0) 03/18/25 13:23 03/18/25 Hct 41.6 % (37-47) 03/18/25 13:23 03/18/25 Plt Count 315 K/mm3 (150-450) 03/18/25 13:23 03/18/25 CHEMISTRY Potassium 4.1 mmol/L (3.3-5.1) 03/18/25 13:23 03/18/25 Sodium 141 mmol/L (133-145) 03/18/25 13:23 03/18/25 Phosphorus 3.0 mg/dL (2.7-4.5) 12/23/24 10:00 12/23/24 BUN 10 mg/dL (4-19) 03/18/25 13:23 03/18/25 Creatinine 0.92 mg/dL (0.70-1.20) 03/18/25 13:23 03/18/25 Glucose 89 mg/dL (70-99) 03/18/25 13:23 03/18/25 COAG Urine Test Negative Negative 03/25/25 06:02 03/25/25 Pre-Assessment Diagnosis/Proposed Procedure Planned Operative Procedure(s): (B) Endoscopic Carpal Tunnel Release Anesthesia History Anesthesia History - director of market analysis: Anesthesia History - director of market analysis Hx Hospitalization No 03/11/25 15:19 Any Problems With Anesthesia No 03/11/25 15:19 Cholinesterase deficiency No 03/11/25 15:19 You/Your Family Experience No 03/11/25 15:19 fever (hyperthermia) with Relationship Recent Exposure to Contagious No 03/25/25 06:26 Disease Does patient have nerve No 03/11/25 15:19 stimulator Patient instructed to have device shut off --Does patient have Pacemaker No 03/25/25 06:26 or ICD? When Was Last Pacemaker Check QUESTION #4 FULL TEXT: You/Your Family Experience fever (hyperthermia) with Anesthesia Last Oral Intake Last Oral intake: Last Oral Intake NPO since 22:00 03/25/25 06:26 Meds taken in AM with sips of water? Meds patient instructed to take am of surgery PONV PONV - director of market analysis: PONV - director of market analysis Female Yes 03/11/25 15:19 HX of Motion Sickness No 03/11/25 15:19 HX of N/V After Surgery No 03/11/25 15:19 Non-Smoker Yes 03/11/25 15:19 Duration of Surgery greater No 03/11/25 15:19 than 60 minutes Number of Risk Factors 2 03/11/25 15:19 PONV Score Moderate Risk 03/11/25 15:19 Height & Weight Height & Weight: Anesthesia: Height & Weight Height 5 ft 2 in 03/25/25 06:26 Weight: 77.111 kg 03/25/25 06:26 Body Mass Index (BMI) 31.1 03/25/25 06:26 Respiratory Assessment Respiratory Assessment - director of market analysis: Respiratory Tract Infection Hx - director of market analysis Hx Respiratory Tract Infection No 03/11/25 15:19 STOP Sleep Apnea STOP Sleep Apnea - director of market analysis: STOP Sleep Apnea - director of market analysis Hx Hypertension No 03/11/25 15:19 Hx Sleep Apnea No 03/11/25 15:19 CPAP BIPAP Do you snore loudly (louder No 03/11/25 15:19 than talking or can be heard Do you often feel tired/ No 03/11/25 15:19 fatigued/ sleepy during daytime? Has anyone observed you stop No 03/11/25 15:19 breathing during sleep? STOP Results Negative 03/11/25 15:19 QUESTION #5 FULL TEXT : Do you snore loudly (louder than talking or can be heard through closed doors)? 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 Specify any problems Hx of Preganancy in last 3 No 03/11/25 15:19 Months Nurse Filling Out Transfusion VCHRISTIN 03/11/25 15:19 & Questions: Date: 03/11/25 03/11/25 15:19 Time: 15:20 03/11/25 15:19 Patient unable to answer at this time (ie. confused, unrespo /Reproduction History /Reproductive History - director of market analysis: /Reproductive Hx- director of market analysis Hx Now No 03/11/25 15:19 Gestational Age (in weeks): EDC: Hx Hx Para Hx Section SAB No 03/11/25 15:19 Active Medications Active Medications: Current Medications Generic Name Dose Route Start Last Admin Trade Name Freq PRN Reason Stop Dose Admin Cefazolin Sodium 2 gm/ Sodium 110 mls @ 200 mls/hr 03/25/25 07:30 Chloride IV 03/25/25 08:02 INTRAOP ONE Lactated Ringer's 1,000 mls @ 15 mls/hr 03/25/25 06:00 03/25/25 06:33 IV 15 mls/hr .Q48H SOLEDAD Administration PFSH Medical History Wears contact lenses Wears glasses History of steroid therapy Syncope Non-smoker Anxiety and depression Encounter to establish care Preventative health care Depression Anxiety Seasonal allergies Carpal tunnel syndrome Home Medications ?Medication ?Instructions ?Recorded ?Last Taken ?Type bupropion HCl 300 mg 24 hr tablet, 300 mg PO QAM #90 t abs 12/23/24 03/24/25 Rx extended release norethindrone 1 mg-e. estradiol 20 1 tab PO QDAY 12/2303/24/25 History mcg (24)-iron 75 mg (4) chew tablet (Susan 24 Fe) sertraline 100 mg tablet 100 mg PO QDAY #90 tabs 11/2903/24/25 Rx fexofenadine 180 mg tablet 180 mg PO DAILY 03/11/25 History (Violetta Allergy) Allergy/AdvReac Type Severity Reaction Status Date / Time No Known Allergies Allergy Verified 03/25/25 06:24 Family History Mother Hypertension Autoimmune disease Grandfather Lung cancer Grandfather Prostate cancer Diabetes Surgical History H/O left wrist surgery Social History adopted: No household members: spouse and children number of children: 3 current occupational status: employed 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
[2025-03-25] MEDS: Cefazolin 2 GM in 0.9% Normal Saline (100mL Bag) 100 ML IV (07:29)
[2025-03-25] MEDS: Lidocaine 1% /Epi 1:100 (20ml) 20 ML Vial (07:45)
--- NOTE | 2025-03-25 08:13 | OP.PCM_ITS ---
Operative Report (Standard) Operative Information Date of Procedure: 03/25/25 Pre-Operative Diagnosis: Bilateral carpal tunnel syndrome Post-Operative Diagnosis: Bilateral carpal tunnel syndrome Surgery/Procedure Performed: Bilateral endoscopic carpal tunnel release environmental health physician: Yes Computer Laboratory Technician: Radha Aguillon Tasks completed by certified ophthalmic surgical assistant: Opening & closing and Hemostasis: Electrocautery Type of Anesthesia: General RN Documented Start/Stop Times: Operation Date: 03/25/25 07:30 Case Time Into Pre-Op 03/25/25 05:58 Out of Pre-Op 03/25/25 07:26 Anesthesia Start 03/25/25 07:29 Into Room 03/25/25 07:29 Procedure Start 03/25/25 07:46 Procedure Start Time: 07:46 Procedure Stop Time: 08:13 Select all DRAINS/GRAFTS/IMPLANTS that apply: None Estimated Blood Loss: 2 cc Specimen collected: No Description of surgery: Patient was seen in preoperative holding area. Patient was identified by name, medical record number, date of . The operative extremities were marked with a surgical marker. We confirmed informed consent with the patient and all questions were answered to the patient's satisfaction. At time of her procedure, patient was brought to the operative suite and positioned supine a standard operating table. All bony prominences were well- padded. General anesthesia was induced and LMA placed. Bilateral upper extremities were then prepped for surgery by first applying a well-padded pneumatic tourniquet to the upper arms. We spun the bed approximately 45 degrees. 2 g Ancef was administered prior to incision by anesthesia staff. Tumescent field blocks were administered with 10 cc in each and of 1% lidocaine with epinephrine we then prepped and draped bilateral upper extremities. We performed a timeout at this point confirming side, site, and operation to be performed. No concerns voiced and elected to proceed. I began surgery on the right side, as this was the more symptomatic side. Hand was exsanguinated and tourniquet was inflated to 250 mmHg, tourniquet was inflated for approximately 10 minutes. I first marked a transverse incision on the ulnar aspect of the palmaris longus tendon in the proximal wrist crease approximately 1 cm in length. Skin was sharply incised with 15 blade scalpel. Superficial veins were cauterized with bipolar cautery. The fatty layer was dissected through bluntly until the antebrachial fascia was encountered. The antebrachial fascia were split in line with the fibers as well as the incision with the Littler scissors. I then placed a skin hook around the antebrachial fascia distally. I open the proximal 1 cm longitudinally of the antebrachial fascia. I then sequentially dilated within the carpal tunnel utilizing Arthrex supplied dilators. I then utilized there synovial elevator to debride the undersurface of the transverse carpal ligament free from synovium. I then removed the elevator and inserted the centerline endoscopic carpal tunnel release system. The transverse carpal ligament was well visualized and free from underlying synovium. I identified its distal aspect by blotting the skin and perivascular fat was visualized. I then carefully deployed the scalpel from the sheath and, in retrograde fashion, sequentially released the transverse carpal ligament longitudinally. No aberrancies of the median nerve were appa rent. Complete release was confirmed with Littler scissors acting as a probe. The tourniquet was then deflated. Hemostasis was excellent. Skin was closed with with buried 4-0 Monocryl intradermal suture and Dermabond. Sterile compression dressing was then applied. I then turned my attention to the left side. Hand was exsanguinated and tourniquet inflated to 250 mmHg which remained elevated for approximately 5 minutes. I then marked a transverse incision on the ulnar aspect of the palmaris longus tendon in the proximal wrist crease approximately 1 cm in length. Skin was sharply incised with 15 blade scalpel. Superficial veins were cauterized with bipolar cautery. The fatty layer was dissected through bluntly until the antebrachial fascia was encountered. The antebrachial fascia were split in line with the fibers as well as the incision with the Littler scissors. I then placed a skin hook around the antebrachial fascia distally. I opened the proximal 1 cm longitudinally of the antebrachial fascia. I then sequentially dilated within the carpal tunnel utilizing Arthrex supplied dilators. I then utilized there synovial elevator to debride the undersurface of the transverse carpal ligament free from synovium. I then removed the elevator and inserted the centerline endoscopic carpal tunnel release system. The transverse carpal ligament was well visualized and free from underlying synovium. I identified its distal aspect by blotting the skin and perivascular fat was visualized. I then carefully deployed the scalpel from the sheath and, in retrograde fashion, sequentially released the transverse carpal ligament longitudinally. No aberrancies of the median nerve were apparent. Complete release was confirmed with Littler scissors acting as a probe. The tourniquet was then deflated. Hemostasis was excellent. Skin was closed with interrupted buried intradermal 4-0 Monocryl and Dermabond. Sterile compression dressing was then applied. Patient tolerated procedure well without apparent complication. Patient was awakened from anesthesia and safely activating the operative suite. Patient was transferred to PACU in stable condition. Intraoperative medications: 20 cc total 1% lidocaine with epinephrine Post Operative Plan: Weightbearing: Weightbearing as tolerated bilateral upper extremities Antibiotics: Ancef 2 g x 1 dose preoperatively DVT Prophylaxis: None indicated Varela: None Dressing: Okay to remove on postoperative day #2, shower. Okay to leave open to air. X-Rays: None Pain Medication: [place] Rx provided Follow-up: 2 weeks post-operatively in the office for wound check. Surgical Findings: Complete release bilateral transverse carpal ligament without aberrancy noted of the median nerve bilaterally. Complications Complications: No Admit VTE Documentation VTE Present on Admission: No VTE Mechan Device Prophylaxis: None VTE Pharm Prophylaxis ordered?: No Reason prophylaxis not ordered: Treatment Not Indicated
--- NOTE | 2025-03-25 08:36 | PCM.POST.ANE ---
Anesthesia: Postop Eval I Current Vital Signs Temperature: 97.5 F Pulse Rate: 110 Blood Pressure: 126/66 Respiratory Rate: 20 Pulse Ox: 90 Oxygen Delivery Method: Room Air Assessment Airway patent: Yes Spontaneous unlabored respirations: Yes Mental status: Awake nausea: No Vomiting: No Anesthesia Complication: No Fluid Hydration Crystalloid volume administer (ml): 1,000 Total IV fluid infused: 1,000 Progress Note Anesthesia document: Postop Eval 1 completed: Yes
--- NOTE | 2025-03-25 08:44 | POSTOPAN2_ITS ---
Anesthesia Postop Eval I Sum Postop Eval Completion status Anesthesia document: Postop Eval 1 completed: Yes Anesthesia Postop Eval I Summary Anesthesia Postop Eval I Summary: Anesthesia Postop Eval I: Assessment Summary Airway patent Yes 03/25/25 08:37 [email or web address] Spontaneous unlabored Yes 03/25/25 08:37 [email or web address] respirations Mental status Awake 03/25/25 08:37 [email or web address] nausea No 03/25/25 08:37 [email or web address] Vomiting No 03/25/25 08:37 [email or web address] Anesthesia Postop Eval I: Fluid Summary Crystalloid volume administer 1,000 03/25/25 08:37 [email or web address] (ml) Colloids volume administered ( ml) Blood Product volume administered (ml) Total IV fluid infused 1,000 03/25/25 08:37 [email or web address] Anesthesia Postop Eval I: Summary Notes Anesthesia Complication No 03/25/25 08:37 [email or web address] Anesthesia Complication Comment: Post-operative progress note Anesthesia: Postop Eval II Evaluation Mental status: Awake and Calm Pain Level: 1 nausea: No Vomiting: No Complications Anesthesia Complication: No
--- NOTE | 2025-03-25 08:44 | PCM.POSTANE2 ---
Anesthesia Postop Eval I Sum Postop Eval Completion status Anesthesia document: Postop Eval 1 completed: Yes Anesthesia Postop Eval I Summary Anesthesia Postop Eval I Summary: Anesthesia Postop Eval I: Assessment Summary Airway patent Yes 03/25/25 08:37 [email or web address] Spontaneous unlabored Yes 03/25/25 08:37 DEPUTY [email or web address] respirations Mental status Awake 03/25/25 08:37 DEPUTY [email or web address] nausea No 03/25/25 08:37 DEPUTY [email or web address] Vomiting No 03/25/25 08:37 DEPUTY [email or web address] Anesthesia Postop Eval I: Fluid Summary Crystalloid volume administer 1,000 03/25/25 08:37 [email or web address] (ml) Colloids volume administered ( ml) Blood Product volume administered (ml) Total IV fluid infused 1,000 03/25/25 08:37 DEPUTY [email or web address] Anesthesia Postop Eval I: Summary Notes Anesthesia Complication No 03/25/25 08:37 DEPUTY [email or web address] Anesthesia Complication Comment: Post-operative progress note Anesthesia: Postop Eval II Evaluation Mental status: Awake and Calm Pain Level: 1 nausea: No Vomiting: No Complications Anesthesia Complication: No
== END 2025-03-25 10:17 | disposition home or self-care (01) ==
LOC: SDC 05:56 → AC 05:57
PROVIDERS: Anesthesiology; PCP Internal Medicine; Referring Provider Student in an Organized Health Care Education/Training Program; Visit Provider Student in an Organized Health Care Education/Training Program
PROC: (CPT 29848; principal; 2025-03-25 07:15)
DX: G56.03 Carpal tunnel syndrome, bilateral upper limbs (principal); F41.9 Anxiety disorder, unspecified; Z79.899 Other long term (current) drug therapy; Z86.16 Personal history of COVID-19
CPT/HCPCS: 29848; 01810; 36415; 80048; 81025; 85025; J2405

== ENCOUNTER → 2025-04-14 | Outpatient (CLI) | payer OTHER, SELFPAY ==
[2025-04-18 13:07] LABS: HPV APTIMA, High Risk Negative (Negative)
== END | disposition home or self-care (01) ==
LOC: LABSPEC 16:13
PROVIDERS: PCP Internal Medicine; Visit Provider Nurse Practitioner Family
DX: Z12.4 Encounter for screening for malignant neoplasm of cervix (principal)
CPT/HCPCS: 87624; 88175; G0145